=== PATIENT | female | born 1950 | race Caucasian/White ===

== ENCOUNTER → 2017-05-20 | Outpatient (CLI) | payer OTHER ==
[~2017-05-20] MED LIST: ARM1 PO; ASCA500 PO; B12 PO; CLTP PO; CYAN500T PO; GARLIC SUPPLEMENT PO; HYDC25 PO; MULT-506 PO; MULTIVITAMIN DAILY PO; PYRI100T4 PO; Vitamin D3 PO
--- NOTE | 2017-05-21 13:57 | MAMMOGRAPHY REPORT ---
BILATERAL DIGITAL SCREENING MAMMOGRAM TOMOSYNTHESIS WITH CAD: 05/20/2017 CLINICAL HISTORY: Asymptomatic. Personal history of breast cancer. TECHNIQUE: Breast tomosynthesis in addition to standard 2D mammography was performed. Current study was also evaluated with a Computer Aided Detection (CAD) system. COMPARISON: Comparison is made to exams dated: 05/18/2016 mammogram, 05/13/2015 mammogram, 05/09/2014 sarah mogram, 05/08/2013 mammogram, 05/05/2012 mammogram, and 05/04/2011 mammogram - [facility]. BREAST COMPOSITION: The tissue of both breasts is heterogeneously dense, which may obscure small mas ses. FINDINGS: No suspicious masses, calcifications, or areas of architectural distortion are noted in ei ther breast. There has been no significant interval change compared to prior exams. There are stable post surgical changes in the left superior breast from prior lumpectomy. Scattered bilateral benign -appearing calcifications are stable. IMPRESSION: ACR BI-RADS CATEGORY 2: BENIGN There is no mammographic evidence of malignancy. A 1 year screening mammogram is recommended. The pa tient will receive written notification of the results. Approximately 10% of breast cancers are not detected with mammography. A negative mammographic report should not delay biopsy if a clinically suggestive mass is present. Rachelle Berry M.D. /:05/20/2017 14:53:21 [employer] Forms: Claudia KIRKLAND(R)(M), [facility] letter sent: Normal 1/2 BI-RADS Code: ACR BI-RADS Category 2: Benign
== END | disposition home or self-care (01) ==
LOC: C.MAMM 13:20
PROVIDERS: ATTEND Internal Medicine Hematology
DX: Z12.31 Encounter for screening mammogram for malignant neoplasm of breast (principal)

== ENCOUNTER → 2018-05-23 | Outpatient (CLI) | payer OTHER ==
--- NOTE | 2018-05-24 14:56 | MAMMOGRAPHY REPORT ---
BILATERAL DIGITAL SCREENING MAMMOGRAM TOMOSYNTHESIS WITH CAD: 05/23/2018 CLINICAL HISTORY: Asymptomatic. Personal history of breast cancer. TECHNIQUE: The study was acquired using full field digital technology and interpreted from soft copy. Breast tomosynthesis in addition to standard 2D mammography was performed. Current study was also ev aluated with a Computer Aided Detection (CAD) system. COMPARISON: Comparison is made to exams dated: 05/20/2017 mammogram, 05/18/2016 mammogram, 05/13/2015 sarah mogram, 05/09/2014 mammogram, 05/08/2013 mammogram, and 05/04/2011 mammogram - [facility]. BREAST COMPOSITION: The tissue of both breasts is heterogeneously dense, which may obscure small mass es. FINDINGS: A linear scar marker overlies the upper outer posterior left breast, and there is expected architectural distortion in the upper outer posterior left breast, denoting the site of prior lumpect najma. There are scattered benign rounded rim calcifications as well as mild vascular calcification in the breasts. No suspicious mass, architectural distortion or cluster of microcalcifications is seen. IMPRESSION: ACR BI-RADS CATEGORY 1: NEGATIVE There is no mammographic evidence of malignancy. A 1 year screening mammogram is recommended.( 019) The patient will receive written notification of the results. Some breast cancers are not detected with mammography. A negative mammographic report should not alejo y biopsy if a clinically suggestive mass is present. Vera Acharya M.D. ay/:05/23/2018 15:13:29 Development Director: RT Bonnie(Paramjit)(M), [facility] letter sent: Normal 1/2 BI-RADS Code: ACR BI-RADS Category 1: Negative
== END | disposition home or self-care (01) ==
LOC: C.MAMM 12:47
PROVIDERS: ATTEND Family Medicine
DX: Z12.31 Encounter for screening mammogram for malignant neoplasm of breast (principal); Z85.3 Personal history of malignant neoplasm of breast

== ENCOUNTER 2022-04-20 08:32 | Inpatient (IN) ==
--- NOTE | 2022-04-20 09:04 | Emergency Department Note ---
History of Present Illness General Chief complaint: Flank Pain Stated complaint: FLANK PAIN,TROUBLE STANDING,CONFUSION,CANT EAT Time Seen by Provider: 04/20/22 08:51 Source: patient and family (Son at bedside) History of Present Illness Provider complaint: Abdominal pain flank pain confused Onset (ago): month(s) 1 Maximum Pain Intensity: 8 72-year-old female with history of breast cancer presents emergency department with son for abdominal pain flank pain and confusion. Patient and son report that she has been having flank pain and abdominal pain for the last month on and off. Son reports that about a month ago she was admitted to the hospital for constipation. He states he had to do a "cleanout". Patient reports she is still having bowel movements had bowel movement yesterday. Patient reports she thinks her urine may be infected. No fevers. No falls. Son reports that the patient has been more "foggy" and slow to respond. No nausea vomiting or diarrhea. No hematuria or dysuria. Home Medications Medication Instructions Recorded Confirmed Type anastrozole 1 mg tablet 1 mg PO DAILY 03/18/22 03/18/22 History atorvastatin 10 mg tablet 10 mg PO HS 03/18/22 03/18/22 History calcium carbonate 600 mg-vitamin 1 tab PO DAILY 03/18/22 03/18/22 History D3 10 mcg (400 unit) tablet (Calcium 600 + D(3)) lisinopril 20 0.5 tab PO DAILY 03/18/22 03/18/22 History mg-hydrochlorothiazide 12.5 mg tablet Allergies Allergy/AdvReac Type Severity Reaction Status Date / Time No Known Allergies Allergy Unknown Verified 03/18/22 15:24 Past Med/Surg History Medical History Breast cancer High cholesterol Hypertension No pertinent family history Surgical History No pertinent past surgical history Social History Smoking Status: Never smoker Feels Safe at Home: Yes Review of Systems A total of 10 systems reviewed and were otherwise negative Physical Exam Vital Signs Vital Signs - 24 hr 04/20/22 08:41 04/20/22 09:23 04/20/22 10:30 Temperature 36.3 C L 36.8 C Temperature Source Skin Oral Pulse Rate 97 H 97 H Pulse Rate [Radial] 98 H 88 Pulse Rhythm Regular Pulse Rhythm [Radial] Regular Pulse Strength [Radial] Normal Respiratory Rate 20 17 20 Respiratory Effort / Characteristics Non-Labored Spontaneous Non-Labored Non-Labored Respiratory Depth Normal Normal Normal Respiratory Pattern Regular Regular Blood Pressure 141/74 H Blood Pressure [Right Arm] 153/87 H 143/78 H Blood Pressure Mean 96 Blood Pressure Mean [Right Arm] 109 99 Blood Pressure Position [Right Arm] Sitting Pulse Oximetry 97 96 98 Oxygen Delivery Method Room Air Room Air Room Air Sepsis Recent Fever Within 48 Hours No Sepsis New/Unexplained Change in Mental Status N/A Sepsis Action Taken by Nursing No Action Required 04/20/22 11:56 Temperature Temperature Source Pulse Rate Pulse Rate [Radial] 93 H Pulse Rhythm Pulse Rhythm [Radial] Regular Pulse Strength [Radial] Normal Respiratory Rate 16 Respiratory Effort / Characteristics Non-Labored Respiratory Depth Normal Respiratory Pattern Regular Blood Pressure Blood Pressure [Right Arm] Blood Pressure Mean Blood Pressure Mean [Right Arm] Blood Pressure Position [Right Arm] Pulse Oximetry 98 Oxygen Delivery Method Room Air Sepsis Recent Fever Within 48 Hours Sepsis New/Unexplained Change in Mental Status Sepsis Action Taken by Nursing Physical Exam GENERAL: She is oriented to person, place, and time. She appears well-developed and well-nourished. She does not appear distressed. HENT: Exam performed. -Head: Normocephalic and atraumatic. -Right Ear: External ear normal. No mastoid tenderness. -Left Ear: External ear normal. No mastoid tenderness. -Mouth/Throat: The oropharynx is clear and moist. No trismus in the jaw. No dental abscesses or uvula swelling. No oropharyngeal exudate or tonsillar abscesses. EYES: Conjunctivae and EOM are normal. Pupils are equal, round, and reactive to light. Right eye exhibits no discharge. Left eye exhibits no discharge. No scleral icterus. NECK: Normal range of motion. Neck supple. No JVD present. No spinous process tenderness present. No carotid bruit present. No rigidity. No tracheal deviation and normal range of motion present. No Brudzinski's sign and no Kernig's sign noted. CV: Normal rate, regular rhythm, normal heart sounds and intact distal pulses. There is no peripheral edema. Palpable radial pulses bue. PULM/CHEST: Effort normal and breath sounds normal. No respiratory distress. No stridor. She has no wheezes. She has no rales. -Chest Wall: She exhibits no tenderness. ABD: The abdomen is soft. Bowel sounds are normal. She has no distension. No mass is present. There is no tenderness. There is no rebound, no guarding, no Fowler's sign and no tenderness at McBurney's point. Rovsig negative MUSC/SKEL: Normal range of motion. There is no peripheral edema, tenderness or deformity. LYMPH: No cervical adenopathy. NEURO: She is alert and oriented to person, place, and time. She has normal strength. No cranial nerve deficit or sensory deficit. Coordination and gait normal. GCS eye subscore is 4. GCS verbal subscore is 5. GCS motor subscore is 6. Cerebellar tests wnl. SKIN: Skin is warm and dry. She is not diaphoretic. PSYCH: She has a normal mood and affect. Behavior is normal. Judgment and thought content normal. Course Course 0851: The patient was evaluated in room A2. A complete history and physical exam was performed Cardiac monitoring: An order was placed for continuous cardiac monitoring. The monitor shows a rate of 90 with sinus rhythm 1155: Vital signs stable. Labs show a creatinine of 3.95 and calcium of 15.8. CT of the head within normal limits CT of the abdomen pelvis shows compression deformities of T11 and L1 with a possible nondisplaced fracture of T10. There are also multiple lytic foci representing either multiple myeloma metastasis of breast cancer or severe osteopenia. On exam the patient has no palpation over the T or L-spine. It is thought that the patient might have metastasis of her breast cancer which is causing these fractures and also the hypercalcemia. Discussed the case with Jennyfer York hospitalist who stated to admit to Dr. Fischer Administered Medications Discontinued Medications Sodium Chloride (Nss 1000ml) 1,000 mls @ 999 mls/hr IV .Q1H1M ONE Stop: 04/20/22 12:30 Last Admin: 04/20/22 11:54 Dose: 999 mls/hr Documented by: [id number] Medical Decision Making Laboratory Data Result diagrams: 04/20/22 10:03 04/20/22 10:45 Lab Results 04/20/22 04/20/22 04/20/22 Range/Units 09:10 09:18 10:03 WBC 9.00 (4.8-10.8) K/ul RBC 2.77 L (3.93-5.22) M/uL Hgb 8.8 L (12.0-16.0) g/dl Hct 25.5 L (34.1-44.9) % MCV 92.1 (80.0-100.0) fL MCH 31.8 (25.0-34.0) pg MCHC 34.5 (32.0-36.0) g/dL RDW Std Deviation 42.4 (36.4-46.3) fL RDW Coeff of Brandon 12.6 (11.5-14.5) % Plt Count 199 (130-400) K/uL MPV 10.4 (9.4-12.3) fL Immature Gran % (Auto) 1.1 % Neut % (Auto) 71.4 % Lymph % (Auto) 14.3 % [place] % (Auto) 12.0 % Eos % (Auto) 0.9 % Baso % (Auto) 0.3 % Neut # (Auto) 6.42 (1.4-6.5) K/uL Lymph # (Auto) 1.29 (1.2-3.4) K/uL [place] # (Auto) 1.08 H (0.24-0.82) K/uL Eos # (Auto) 0.08 (0-0.50) K/uL Baso # (Auto) 0.03 (0-0.2) K/uL Immature Gran # (Auto) 0.10 H (0.00-0.02) K/uL Sodium (136-145) mmol/L Potassium (3.5-5.1) mmol/L Chloride (98-107) mmol/L Carbon Dioxide (21-32) mmol/L Anion Gap (3-11) BUN (6-23) mg/dl Creatinine (0.6-1.2) mg/dl Est Cr Clr Drug Dosing ml/min Est GFR ( Amer) ml/min Est GFR (Non-Af Amer) ml/min BUN/Creatinine Ratio (10-20) Glucose (70-99(Fasting)) mg/dl POC Glucose 101 H (70-99) mg/dl Calcium (8.5-10.1) mg/dl Urine Color Yellow Urine Appearance Clear (Clear) Urine pH 6.0 (4.5-7.5) Ur Specific [place] 1.014 (1.000-1.030) Urine Protein 2+ H (Negative) Urine Glucose (UA) Negative (Negative) Urine Ketones Negative (Negative) Urine Blood 3+ H (Negative) Urine Nitrite Negative (Negative) Urine Bilirubin Negative (Negative) Urine Urobilinogen Negative (Negative) Ur Leukocyte Esterase Trace H (Negative) Urine WBC (Auto) 10-30 H (0-5) /hpf Urine RBC (Auto) 10-30 H (0-4) /hpf U Hyaline Cast (Auto) 1-5 (0-5) /lpf U Epithel Cells (Auto) >30 H (0-5) /lpf Urine Bacteria (Auto) Negative (Negative) Ur Renal Epithelial Cell Not Reportable SARS-CoV-2, RNA, NAAT (NEGATIVE) 04/20/22 04/20/22 Range/Units 10:45 11:47 WBC (4.8-10.8) K/ul RBC (3.93-5.22) M/uL Hgb (12.0-16.0) g/dl Hct (34.1-44.9) % MCV (80.0-100.0) fL MCH (25.0-34.0) pg MCHC (32.0-36.0) g/dL RDW Std Deviation (36.4-46.3) fL RDW Coeff of [place] (11.5-14.5) % Plt Count (130-400) K/uL MPV (9.4-12.3) fL Immature Gran % (Auto) % Neut % (Auto) % Lymph % (Auto) % [place] % (Auto) % Eos % (Auto) % Baso % (Auto) % Neut # (Auto) (1.4-6.5) K/uL Lymph # (Auto) (1.2-3.4) K/uL [place] # (Auto) (0.24-0.82) K/uL Eos # (Auto) (0-0.50) K/uL Baso # (Auto) (0-0.2) K/uL Immature Gran # (Auto) (0.00-0.02) K/uL Sodium 135 L (136-145) mmol/L Potassium 3.0 L (3.5-5.1) mmol/L Chloride 93 L (98-107) mmol/L Carbon Dioxide 31 (21-32) mmol/L Anion Gap 11 (3-11) BUN 53 H (6-23) mg/dl Creatinine 3.95 H (0.6-1.2) mg/dl Est Cr Clr Drug Dosing 10.7 ml/min Est GFR ( Amer) 12.3 ml/min Est GFR (Non-Af Amer) 10.6 ml/min BUN/Creatinine Ratio 13.4 (10-20) Glucose 93 (70-99(Fasting)) mg/dl POC Glucose (70-99) mg/dl Calcium 15.8 H* (8.5-10.1) mg/dl Urine Color Urine Appearance (Clear) Urine pH (4.5-7.5) Ur Specific [place] (1.000-1.030) Urine Protein (Negative) Urine Glucose (UA) (Negative) Urine Ketones (Negative) Urine Blood (Negative) Urine Nitrite (Negative) Urine Bilirubin (Negative) Urine Urobilinogen (Negative) Ur Leukocyte Esterase (Negative) Urine WBC (Auto) (0-5) /hpf Urine RBC (Auto) (0-4) /hpf U Hyaline Cast (Auto) (0-5) /lpf U Epithel Cells (Auto) (0-5) /lpf Urine Bacteria (Auto) (Negative) Ur Renal Epithelial Cell SARS-CoV-2, RNA, NAAT NEGATIVE (NEGATIVE) Imaging Data Radiologist's Impression: Abdomen/Pelvis CT 04/20/22 09:00 CT abd pelvis wo con CLINICAL HISTORY: abd pain flank pain confusion TECHNIQUE: Helical axial images of the abdomen and pelvis were obtained. Automated dose lowering techniques and/or adjustment according to patient size were utilized for this exam. This exam was performed without intravenous contrast. COMPARISON: None available at the time of this dictation. FINDINGS: Lower chest: Bibasilar atelectasis versus scarring is seen. Atherosclerotic disease is seen in the coronary arteries. There is a small amount of pericardial fluid. Liver: Unremarkable. No focal lesions are seen. Gallbladder and biliary tree: Calcified gallstone is seen in the antidependent portion of the gallbladder. No intra- or extrahepatic biliary ductal dilation. Pancreas: Unremarkable, no focal lesions. Spleen: Unremarkable. Adrenals: Mild adrenal thickening is noted. Kidneys and ureters: Multiple renal cysts are seen on the right. No evidence of hydronephrosis. Bladder: Bladder is under distended with circumferential thickening noted. Reproductive organs: Unremarkable. Bowel: A hiatal hernia is seen. Lymph nodes Retroperitoneal: Subcentimeter lymph nodes are noted. Mesenteric: Unremarkable. Pelvic: Unremarkable. Peritoneum: Normal. Vessels: Atherosclerotic calcifications are seen. Abdominal wall: Unremarkable. Bones: There are compression deformities of T11 and L1 of unknown chronicity. Possible minimally displaced fracture of the superior endplate of T10 is seen. The bones are severely osteopenic with innumerable lytic foci. Degenerative changes in the visualized spine. IMPRESSION: 1. Osteopenia with innumerable lytic foci which may represent multiple myeloma, metastases of breast cancer, or severe osteopenia. There are compression deformities of T11 and L1, and possible nondisplaced fracture of T10, of unknown chronicity, correlation with point tenderness is recommended. Otherwise, no acute abnormality is seen, in particular no evidence of hydronephrosis or nephrolithiasis. 2. Bladder wall thickening, correlation with urinalysis for UTI is recommended. ACT 112: Negative or not required by law. Electronically signed by: Edy Ramirez M.D. 04/20/2022 10:[address] 04/20/22 09:[address] DOSE: 638.56 mGycm HISTORY: Confusion. TECHNIQUE: Multiaxial CT images of the head were performed without the use of intravenous contrast. Automated exposure control was utilized for this study. A dose lowering technique was utilized adhering to the principles of ALARA. Comparison: None. Findings: The paranasal sinuses and mastoid air cells are clear. The calvarium and skull base are intact. There is no mass, hematoma, midline shift, acute infarct. White matter hypodensity is nonspecific but suggestive of microvascular ischemic change. The ventricles and sulci demonstrate mild age-related involutional changes. A few scalp nodules which favor sebaceous cysts. Impression: No acute intracranial abnormality. Atrophy and microvascular ischemic changes. ACT 112: Negative or not required by law. Electronically signed by: Osei Cope M.D. 04/20/2022 9:48 AM MDM Narrative Vital signs stable. Labs show a creatinine of 3.95 and calcium of 15.8. CT of the head within normal limits CT of the abdomen pelvis shows compression d eformities of T11 and L1 with a possible nondisplaced fracture of T10. There are also multiple lytic foci representing either multiple myeloma metastasis of breast cancer or severe osteopenia. On exam the patient has no palpation over the T or L-spine. It is thought that the patient might have metastasis of her breast cancer which is causing these fractures and also the hypercalcemia. Discussed the case with Jennyfer York hospitalist who stated to admit to Dr. Fischer Impression & Plan Hypercalcemia, FAUSTO (acute kidney injury) Discharge Plan Visit Data Chief Complaint: Flank Pain Stated Complaint: FLANK PAIN,TROUBLE STANDING,CONFUSION,CANT EAT ED Provider: Wellington Danielson Discharge Problem: Hypercalcemia, FAUSTO (acute kidney injury) Patient Disposition: Admitted As Inpatient Forms Stand Alone Forms: [facility] Prescriptions Prescriptions: No Action anastrozole 1 mg tablet 1 mg PO DAILY RF: 0 atorvastatin 10 mg tablet 10 mg PO HS RF: 0 lisinopril-hydrochlorothiazide 20-12.5 mg tablet 0.5 tab PO DAILY RF: 0 calcium carbonate-vitamin D3 [Calcium 600 + D(3)] 600 mg-10 mcg (400 unit) Tablet 1 tab PO DAILY RF: 0 Referrals Referrals: Amelia Tucker, [Primary Care Provider] -
[2022-04-20 09:31] LABS: Appearance Urine Clear (Clear); Bacteria Urine Automated Negative (Negative); Bilirubin Urine Negative (Negative); Blood Urine 3+ (Negative); Color Urine Yellow; Epithelial Cell Urine Auto >30 /lpf (0-5); Glucose Urine UA Negative (Negative); Ketones Urine Negative (Negative); Leukocyte Esterase Urine Trace (Negative); Nitrite Urine Negative (Negative); Protein Urine 2+ (Negative); Specific Gravity Urine 1.014 (1.000-1.030); Urobilinogen Urine Negative (Negative)
--- NOTE | 2022-04-20 09:50 | CT Scan Report ---
HEAD CT NONCONTRAST CT DOSE: 638.56 mGycm HISTORY: Confusion. TECHNIQUE: Multiaxial CT images of the head were performed without the use of intravenous contrast. A utomated exposure control was utilized for this study. A dose lowering technique was utilized adheri ng to the principles of ALARA. Comparison: None. Findings: The paranasal sinuses and mastoid air cells are clear. The calvarium and skull base are int act. There is no mass, hematoma, midline shift, acute infarct. White matter hypodensity is nonspecifi c but suggestive of microvascular ischemic change. The ventricles and sulci demonstrate mild age-rela sean involutional changes. A few scalp nodules which favor sebaceous cysts. Impression: No acute intracranial abnormality. Atrophy and microvascular ischemic changes. ACT 112: Negative or not required by law. Electronically signed by: Osei Cope M.D. 04/20/2022 9:48 AM
--- NOTE | 2022-04-20 10:22 | CT Scan Report ---
CT abd pelvis wo con CLINICAL HISTORY: abd pain flank pain confusion TECHNIQUE: Helical axial images of the abdomen and pelvis were obtained. Automated dose lowering tech niques and/or adjustment according to patient size were utilized for this exam. This exam was perfor med without intravenous contrast. COMPARISON: None available at the time of this dictation. FINDINGS: Lower chest: Bibasilar atelectasis versus scarring is seen. Atherosclerotic disease is seen in the c oronary arteries. There is a small amount of pericardial fluid. Liver: Unremarkable. No focal lesions are seen. Gallbladder and biliary tree: Calcified gallstone is seen in the antidependent portion of the gallbla dder. No intra- or extrahepatic biliary ductal dilation. Pancreas: Unremarkable, no focal lesions. Spleen: Unremarkable. Adrenals: Mild adrenal thickening is noted. Kidneys and ureters: Multiple renal cysts are seen on the right. No evidence of hydronephrosis. Bladder: Bladder is under distended with circumferential thickening noted. Reproductive organs: Unremarkable. Bowel: A hiatal hernia is seen. Lymph nodes Retroperitoneal: Subcentimeter lymph nodes are noted. Mesenteric: Unremarkable. Pelvic: Unremarkable. Peritoneum: Normal. Vessels: Atherosclerotic calcifications are seen. Abdominal wall: Unremarkable. Bones: There are compression deformities of T11 and L1 of unknown chronicity. Possible minimally disp laced fracture of the superior endplate of T10 is seen. The bones are severely osteopenic with innume rable lytic foci. Degenerative changes in the visualized spine. IMPRESSION: 1. Osteopenia with innumerable lytic foci which may represent multiple myeloma, metastases of breast cancer, or severe osteopenia. There are compression deformities of T11 and L1, and possible nondispl aced fracture of T10, of unknown chronicity, correlation with point tenderness is recommended. Otherw ise, no acute abnormality is seen, in particular no evidence of hydronephrosis or nephrolithiasis. 2. Bladder wall thickening, correlation with urinalysis for UTI is recommended. ACT 112: Negative or not required by law. Electronically signed by: Edy Ramirez M.D. 04/20/2022 10:21 AM
[2022-04-20 11:05] LABS: Basophils # (auto) 0.03 K/uL (0-0.2); Basophils % (auto) 0.3 %; Eosinophils # (auto) 0.08 K/uL (0-0.50); Eosinophils % (auto) 0.9 %; Hematocrit (blood only) 25.5 % (34.1-44.9); Hemoglobin 8.8 g/dl (12.0-16.0); Immature Granulocytes % (auto) 1.1 %; Lymphocytes # (auto) 1.29 K/uL (1.2-3.4); Lymphocytes % (auto) 14.3 %; Mean Corpuscular Hemoglobin 31.8 pg (25.0-34.0); Mean Corpuscular Hgb Conc 34.5 g/dL (32.0-36.0); Mean Corpuscular Volume 92.1 fL (80.0-100.0); Mean Platelet Volume 10.4 fL (9.4-12.3); Monocytes # (auto) 1.08 K/uL (0.24-0.82); Neutrophils # (auto) 6.42 K/uL (1.4-6.5); Neutrophils % (auto) 71.4 %; Platelet Count 199 K/uL (130-400); RDW Coefficient of Variation 12.6 % (11.5-14.5); RDW Standard Deviation 42.4 fL (36.4-46.3); Red Blood Count 2.77 M/uL (3.93-5.22)
[2022-04-20 11:24] LABS: BUN Creatinine Ratio 13.4 (10-20); Calcium 15.8 mg/dl (8.5-10.1); Creatinine Clr Calc Pharmacy 10.7 ml/min; Est GFR (African American) 12.3 ml/min; Est GFR (Non-African American) 10.6 ml/min
[2022-04-20] MEDS ORDERED: SODIUM CHLORIDE 0.9% 1000ML 1,000 ML IV ONE (11:30)
--- NOTE | 2022-04-20 12:46 | History & Physical Report ---
Date of Service April 20, 2022 Assessment & Plan (1) Hypercalcemia: Plan: Clinical picture seems most consistent with underlying malignancy in view of imaging and prior history of breast cancer. - Admit to PCU - Continue IV fluid hydration - Consult nephrology for additional treatment recommends, especially in the setting of FAUSTO - Repeat labs this evening and in AM - HOLD calcium supplement - Outpatient follow-up with oncology shortly after D/C - Check SPEP/UPEP - Fall precautions due to generalized weakness. (2) FAUSTO (acute kidney injury): Plan: Baseline creatinine appears to be around 0.6. Today it is 3.95. - Nephro consult pending - Holding lisinopril/HCTZ - will need to monitor BP closely. If becomes markedly elevated off home meds, may need to consider a PRN med. (3) Anemia: Plan: Hgb in December was ~13, today 8.8. Pt denies overt blood loss that she can recall. - Iron studies, B12, folate, retic count - Heme check stools - most recent screening colonoscopy was in 2017 and was negative (4) Hypokalemia: Plan: - Replete and recheck this evening - Add Magnesium level to labs (5) Hypertension: (6) History of breast cancer: (7) High cholesterol: Plan: Continue other home medications as appropriate Pt seen and reviewed with collaborating physician, Dr. Fischer. Plan of care discussed and as outlined above. Code Status: DNR/DNI - pt does not have a living will/POA but states that her son and daughter would make decisions if she couldn't DVT Prophylaxis: SubQ heparin Edmundo Flores PA-C History of Present Illness Chief Complaint: Back pain, weakness Primary Care Provider: Amelia Tucker DO This is a 72 y/o female with a PMH of HTN, dyslipidemia, Breast Cancer s/p mastectomy and chemotherapy, on chronic Arimidex, and prediabetes (A1c in December was 6.1) who presents to the ED today with progressive weakness, increasing back pain, and issues with memory. History is obtained from both patient and her son who is at the bedside since the patient is having issues with memory affecting her ability to give the history. Pt started with a loss of appetite several months ago which has gradually worsened. Over the past few days, she reports barely eating anything and liquid intake has also been limited. She denies significant nausea or vomiting but has had some non-specific abdominal discomfort. She reports unintentional weight loss over the last several months but cannot quantify it - review of her outpatient records shows approximately 15 lb weight loss since last summer. She has also had mid to lower back pain over the last several weeks - seen in the ED for same complaint last month. Found to have compression fractures on imaging. Has been using Lidocaine patches for pain which have only been partially helpful. Pain has also been worse over the last few days. Her family has also noticed an increase in generalized weakness and loss of balance although both patient and her family deny any recent falls. She has had trouble with her memory, even with basic concepts and events, and describes feeling like she is "in a fog" today. This has also worsened over the last couple of days. Her son recently purchased a cane for the patient because of these issues but she did not previously use anything to assist with ambulation. She lives alone but has family just up the road to help when needed. Last oncology appt in December with [facility] - was doing well. Last mammo was negative in May 2021. Last DEXA in December 2020 was low to moderate fracture risk, no specific pharm therapy recommended. Allergies Allergy/AdvReac Type Severity Reaction Status Date / Time No Known Allergies Allergy Unknown Verified 03/18/22 15:24 Home Medications Medication Instructions Recorded Confirmed Type anastrozole 1 mg tablet 1 mg PO DAILY 03/18/22 04/20/22 History atorvastatin 10 mg tablet 10 mg PO HS 03/18/22 04/20/22 History calcium carbonate 600 mg-vitamin 1 tab PO BID 03/18/22 04/20/22 History D3 10 mcg (400 unit) tablet (Calcium 600 + D(3)) lisinopril 20 0.5 tab PO DAILY 03/18/22 04/20/22 History mg-hydrochlorothiazide 12.5 mg tablet Past Med/Surg History Medical History Breast cancer High cholesterol Hypertension Surgical History History of partial mastectomy of left breast Family History Brother Cancer Pancreatic Sister Cancer Lymphoma Family/Other Cancer Niece with breast cancer at age 40 (mother had lymphoma) Uncle Cancer Brain Mother Diabetes Father Heart disease Social History Smoking Status: Never smoker Hx Alcohol Use: No Hx Substance Use: No Preferred Language: Qatari Communication Ability: Effective Site Controller Required: No Beliefs That Will Affect Care: None Current Living Situation: Alone Other Information That Helps Us Care for You: No Feels Safe at Home: Yes Safety Concerns: Feels Safe At This Time Assistive Devices: Cane and Glasses Review of Systems Review of Systems: All systems reviewed & are unremarkable except as noted in HPI & below Constitutional: + fatigue, + weakness, + anorexia and + weight loss; no fever and no chills Eyes: no diplopia and no worsening vision Ear, Nose, Mouth, Throat: no nasal congestion, no nasal discharge, no sore throat and no dysphagia Respiratory: no cough, no dyspnea and no wheezing Cardiovascular: no chest pain, no palpitations, no syncope and no edema Gastrointestinal: + abdominal pain; no nausea, no vomiting, no constipation, no diarrhea/loose stools and no blood in stools Genitourinary: no dysuria, no urinary frequency and no hematuria Musculoskeletal: + back pain and + muscle weakness; no neck pain Integumentary: no yellowing of the skin Neurologic: as per Subjective / HPI, + unsteadiness, + generalized weakness and + memory loss; no falls, no dizziness and no headache(s) Psychiatric: no depression and no anxiety Physical Exam Constitutional: + thin and + frail appearing; no acute distress Eyes: PERRL, conjunctivae normal, anicteric sclerae EOM intact bilaterally ENMT: external ear and nose normal, oropharynx normal Neck: trachea midline Respiratory: no respiratory distress and no labored breathing Auscultation: lungs clear to auscultation bilaterally; no rales, no rhonchi and no wheezes Cardiovascular: Rate/Rhythm: regular rate and regular rhythm Vessels: radial pulses present Extremities: no pedal edema Gastrointestinal (Abdomen): Inspection/Auscultation: normal bowel sounds; abdomen not distended Percussion/Palpation: abdomen soft; abdomen nontender Musculoskeletal: Head/Neck/Chest: normocephalic, head atraumatic and neck supple Spine: no thoracic spinal tenderness and no lumbar spinal tenderness Skin: no jaundice Neurologic: moves all extremities; no focal motor deficits Speech / Cognition: normal speech Cranial Nerves: PERRL, normal accommodation, EOM intact bilaterally, tongue midline and able to rotate head bilaterally Psychiatric: A+Ox3, euthymic affect some difficulty with recent memory Results & Data Results & Data ([facility]) Vital Signs (Past 12 Hours) Vital Signs Temp Pulse Pulse Resp BP BP Pulse Ox 04/20/22 11:56 93 H 16 98 04/20/22 10:30 88 20 143/78 H 98 04/20/22 09:23 36.8 C 97 H 98 H 17 153/87 H 96 04/20/22 08:41 36.3 C L 97 H 20 141/74 H 97 Laboratory Results Laboratory Results - last 24 hr 04/20/22 04/20/22 04/20/22 09:10 09:18 10:03 WBC 9.00 RBC 2.77 L Hgb 8.8 L Hct 25.5 L MCV 92.1 MCH 31.8 MCHC 34.5 RDW Std Deviation 42.4 RDW Coeff of [place] 12.6 Plt Count 199 MPV 10.4 Immature Gran % (Auto) 1.1 Neut % (Auto) 71.4 Lymph % (Auto) 14.3 [place] % (Auto) 12.0 Eos % (Auto) 0.9 Baso % (Auto) 0.3 Neut # (Auto) 6.42 Lymph # (Auto) 1.29 [place] # (Auto) 1.08 H Eos # (Auto) 0.08 Baso # (Auto) 0.03 Immature Gran # (Auto) 0.10 H Sodium Potassium Chloride Carbon Dioxide Anion Gap BUN Creatinine Est Cr Clr Drug Dosing Est GFR ( Amer) Est GFR (Non-Af Amer) BUN/Creatinine Ratio Glucose POC Glucose 101 H Calcium Urine Color Yellow Urine Appearance Clear Urine pH 6.0 Ur Specific [place] 1.014 Urine Protein 2+ H Urine Glucose (UA) Negative Urine Ketones Negative Urine Blood 3+ H Urine Nitrite Negative Urine Bilirubin Negative Urine Urobilinogen Negative Ur Leukocyte Esterase Trace H Urine WBC (Auto) 10-30 H Urine RBC (Auto) 10-30 H U Hyaline Cast (Auto) 1-5 U Epithel Cells (Auto) >30 H Urine Bacteria (Auto) Negative Ur Renal Epithelial Cell Not Reportable SARS-CoV-2, RNA, NAAT 07/11/22 07/11/22 10:45 11:47 WBC RBC Hgb Hct MCV MCH MCHC RDW Std Deviation RDW Coeff of [place] Plt Count MPV Immature Gran % (Auto) Neut % (Auto) Lymph % (Auto) [place] % (Auto) Eos % (Auto) Baso % (Auto) Neut # (Auto) Lymph # (Auto) [place] # (Auto) Eos # (Auto) Baso # (Auto) Immature Gran # (Auto) Sodium 135 L Potassium 3.0 L Chloride 93 L Carbon Dioxide 31 Anion Gap 11 BUN 53 H Creatinine 3.95 H Est Cr Clr Drug Dosing 10.7 Est GFR ( Amer) 12.3 Est GFR (Non-Af Amer) 10.6 BUN/Creatinine Ratio 13.4 Glucose 93 POC Glucose Calcium 15.8 H* Urine Color Urine Appearance Urine pH Ur Specific [place] Urine Protein Urine Glucose (UA) Urine Ketones Urine Blood Urine Nitrite Urine Bilirubin Urine Urobilinogen Ur Leukocyte Esterase Urine WBC (Auto) Urine RBC (Auto) U Hyaline Cast (Auto) U Epithel Cells (Auto) Urine Bacteria (Auto) Ur Renal Epithelial Cell SARS-CoV-2, RNA, NAAT NEGATIVE Diagnostic Findings CT Abd/Pel 04/20/22 - IMPRESSION: 1. Osteopenia with innumerable lytic foci which may represent multiple myeloma, metastases of breast cancer, or severe osteopenia. There are compression deformities of T11 and L1, and possible nondisplaced fracture of T10, of unknown chronicity, correlation with point tenderness is recommended. Otherwise, no acute abnormality is seen, in particular no evidence of hydronephrosis or nephrolithiasis. 2. Bladder wall thickening, correlation with urinalysis for UTI is recommended. CT Head 04/20/22 - Impression: No acute intracranial abnormality. Atrophy and microvascular ischemic changes. Medications Administered Discontinued Medications Sodium Chloride (Nss 1000ml) 1,000 mls @ 999 mls/hr IV .Q1H1M ONE Stop: 04/20/22 12:30 Last Admin: 04/20/22 11:54 Dose: 999 mls/hr Documented by: [id number] Code Status & VTE Plan VTE Prophylaxis Plan VTE Prophylaxis will be ordered: Yes Supervising Physician Co-Signing Physician Notes Pt was seen and examined. Agreed with Jeff FISH exam, assessment and plan. 72 y/o female with a PMH of HTN, dyslipidemia, Breast Cancer s/p mastectomy and chemotherapy, on chronic Arimidex, and prediabetes (A1c in December was 6.1) who presents to the ED today with progressive weakness, increasing back pain, and issues with memory. Son at bedside who helped with the history. As per son, pt has been very weak lately. Son said that pt has been declined slowly. Pt has very poor appetite. Son said that she starting to use a cane lately due to her weakness. She has been having back pain that seems to control with the Lidocaine patch. Pt lost about 15 lbs since last summer. Denies any nausea, diarrhea, vomiting, chest pain, palpitation. Lab in the ER showed calcium 15.8, Creatinine 3.95 and Potassium 3 today. Hypercalcemia might be related to malignancy. Will hold on calcium and vitamin d supplement. Van continue IV hydration. Will check PTH, Vit D level, SPEP/UPEP. Will consult nephrology. Avoid nephrotoxic genets. Continue monitor BMP. MD Amado
[2022-04-20] MEDS ORDERED: POTASSIUM CHLORIDE CRTAB 20 MEQ TABCR PO STA (12:56)
[2022-04-20] MEDS ORDERED: ACETAMINOPHEN 325 MG TAB PO PRN (15:10)
[2022-04-20] MEDS: SODIUM CHLORIDE 0.9% 1000ML 1,000 ML IV SCH ×2 (16:15→19:35)
[2022-04-20 16:18] LABS: Reticulocyte % 0.9 % (0.5-2.0); Reticulocytes # 0.02 10^6/uL (0.02-0.10)
[2022-04-20 17:00] LABS: Ferritin 571.2 ng/ml (8-388)
[2022-04-20 17:05] LABS: Folate (Folic Acid) 9.45 ng/ml (>5.38)
[2022-04-20 17:06] LABS: Vitamin B12 > 1500 pg/ml (180-914)
[2022-04-20] MEDS: ATORVASTATIN 10 MG TAB PO SCH (19:52)
[2022-04-20] MEDS: HEPARIN SOD 5,000 UNIT/0.5 ML VIAL SQ SCH (19:52)
[2022-04-20 22:07] LABS: BUN Creatinine Ratio 13.4 (10-20); Bilirubin Direct 0.2 mg/dl (0-0.2); Bilirubin,Total 0.9 mg/dl (0.2-1.0); Calcium 14.6 mg/dl (8.5-10.1); Creatinine Clr Calc Pharmacy 10.3 ml/min; Est GFR (African American) 13.1 ml/min; Est GFR (Non-African American) 11.3 ml/min; Potassium 3.3 mmol/L (3.5-5.1); Total Protein 6.5 gm/dl (6.0-8.3)
[2022-04-21] MEDS ORDERED: CALCITONIN SALMON 400 UNITS/2 ML SQ SCH ×2 (00:30→09:00)
[2022-04-21] MEDS ORDERED: CALCITONIN SALMON 200 UNITS in SYRINGE 0 ML SQ SCH (01:00)
[2022-04-21] MEDS ORDERED: LACTATED RINGER'S 1,000 ML IV ONE (01:19)
[2022-04-21] MEDS ORDERED: NORMOSOL-R 1,000 ML IV ONE (01:32)
[2022-04-21] MEDS ORDERED: POTASSIUM CHLORIDE CRTAB 20 MEQ TABCR PO STA (01:35)
[2022-04-21] MEDS ORDERED: LACTATED RINGER'S 1,000 ML IV SCH (03:30)
[2022-04-21] MEDS: NORMOSOL-R 1,000 ML IV SCH ×4 (03:47→23:23)
[2022-04-21 07:06] LABS: Basophils # (auto) 0.02 K/uL (0-0.2); Basophils % (auto) 0.3 %; Eosinophils # (auto) 0.06 K/uL (0-0.50); Eosinophils % (auto) 0.8 %; Hematocrit (blood only) 22.2 % (34.1-44.9); Hemoglobin 7.6 g/dl (12.0-16.0); Immature Granulocytes # (auto) 0.06 K/uL (0.00-0.02); Immature Granulocytes % (auto) 0.8 %; Lymphocytes # (auto) 1.29 K/uL (1.2-3.4); Lymphocytes % (auto) 17.2 %; Mean Corpuscular Hemoglobin 32.1 pg (25.0-34.0); Mean Corpuscular Hgb Conc 34.2 g/dL (32.0-36.0); Mean Corpuscular Volume 93.7 fL (80.0-100.0); Mean Platelet Volume 10.3 fL (9.4-12.3); Monocytes # (auto) 0.92 K/uL (0.24-0.82); Monocytes % (auto) 12.3 %; Neutrophils # (auto) 5.13 K/uL (1.4-6.5); Neutrophils % (auto) 68.6 %; Platelet Count 166 K/uL (130-400); RDW Coefficient of Variation 12.7 % (11.5-14.5); RDW Standard Deviation 43.3 fL (36.4-46.3); Red Blood Count 2.37 M/uL (3.93-5.22); White Blood Count 7.48 K/ul (4.8-10.8)
--- NOTE | 2022-04-21 07:26 | XRay Report ---
XR chest 1V portable CLINICAL HISTORY: renal failure TECHNIQUE: Single frontal radiograph of the chest was obtained. Comparison: None available at the time of this dictation. FINDINGS: No lines and tubes are seen. The aorta is tortuous. The remainder of the cardiomediastinal silhouette is unremarkable. The lungs are clear. No evidence of pleural effusion or pneumothorax. IMPRESSION: No acute chest disease. ACT 112: Negative or not required by law. Electronically signed by: Edy Ramirez M.D. 04/21/2022 7:24 AM
[2022-04-21] MEDS ORDERED: PNEUMOCOCCAL Polysaccharide Vaccine 25mcg/0.5mL vial/Syr IM ONE (09:00)
[2022-04-21] MEDS: ANASTROZOLE 1 MG TAB PO SCH (09:26)
[2022-04-21] MEDS: CALCITONIN SALMON 200 UNITS in SYRINGE 0 ML SQ SCH ×2 (09:29→20:32)
[2022-04-21] MEDS: HEPARIN SOD 5,000 UNIT/0.5 ML VIAL SQ SCH ×2 (09:59→20:34)
[2022-04-21 10:10] LABS: BUN Creatinine Ratio 12.8 (10-20); Calcium 12.7 mg/dl (8.5-10.1); Est GFR (African American) 13.8 ml/min; Est GFR (Non-African American) 11.9 ml/min; Potassium 3.9 mmol/L (3.5-5.1)
--- NOTE | 2022-04-21 14:42 | Hospitalist Progress Note ---
Date of Service April 21, 2022 Assessment & Plan (1) Hypercalcemia: Plan: Clinical picture seems most consistent with underlying malignancy in view of imaging and prior history of breast cancer. - Continue IV fluid hydration - HOLD calcium supplement - Outpatient follow-up with oncology shortly after D/C - Check SPEP/UPEP -Appreciate nephrology input and recommendation -Received 1 dose of Zometa at 2:31PM today -Calcium level went down to 12.7 from 15.8 on admission -We will continue calcitonin, IV fluid and monitor PRP and calcium (2) FAUSTO (acute kidney injury): Plan: Baseline creatinine appears to be around 0.6. Today it is 3.95. -CT of the abdomen pelvis did show osteopenia with innumerable lytic foci suggestive of multiple myeloma -Appropriate blood tests have been sent -Appreciate nephrology input and recommendation - Holding lisinopril/HCTZ - will need to monitor BP closely. If becomes markedly elevated off home meds, may need to consider a PRN med. -Creatinine is minimally improved at 3.58 (3) Anemia: Plan: Hgb in December was ~13, today 8.8. Pt denies overt blood loss that she can recall. - Iron studies, B12, folate, retic count - Heme check stools - most recent screening colonoscopy was in 2018 and was negative -Anemia is likely secondary to acute kidney disease/multiple myeloma (4) Hypokalemia: Plan: - Replete and recheck this evening - Add Magnesium level to labs (5) Hypertension: Plan: Blood pressure remains on the upper side at 150/72 Will monitor (6) History of breast cancer: (7) High cholesterol: Plan: Continue other home medications as appropriate Code Status: DNR/DNI - pt does not have a living will/POA but states that her son and daughter would make decisions if she couldn't DVT Prophylaxis: SubQ heparin Admission and Anticipated Discharge Date Admission Date: April 20, 2022 Subjective 04/21/2022 The patient was seen and examined in telemetry unit She has been feeling much better today Denies any shortness of breath at rest Denies any chest pain and/or palpitation She looked very dry Review of Systems Review of Systems: All systems reviewed and are unremarkable except as noted below Physical Exam Physical Exam: Lying in bed with minimal shortness of breath at rest Constitutional: well developed, well nourished, + ill appearing and average body habitus Eyes: PERRL, conjunctivae normal, anicteric sclerae ENMT: external ear and nose normal, oropharynx normal Respiratory: + respiratory distress (Minimal distress at rest) Auscultation: + diminished lung sounds and + crackles (Bibasilar crackles) Cardiovascular: Rate/Rhythm: regular rate and regular rhythm; not tachycardic Heart Sounds: normal S1 and normal S2; no murmur Extremities: no edema Gastrointestinal (Abdomen): Inspection/Auscultation: normal bowel sounds; abdomen not distended Percussion/Palpation: abdomen soft; abdomen nontender Musculoskeletal: No acute arthritis in any joint Neurologic: Alert, awake and oriented x3. Generally weak but no focal sensory or no motor deficit appreciated Lymphatic: no cervical or axillary lymphadenopathy Results & Data Results & [facility] ([facility]) Vital Signs (Past 12 Hours) Vital Signs Temp Pulse Pulse Resp BP Pulse Ox 04/21/22 12:05 36.6 C 93 H 18 150/72 H 96 04/21/22 07:59 36.6 C 91 H 20 135/75 96 04/21/22 07:31 76 04/21/22 04:37 36.9 C 92 H 19 124/68 96 Laboratory Results Short CBC 04/21/22 Range/Units 06:18 WBC 7.48 (4.8-10.8) K/ul Hgb 7.6 L (12.0-16.0) g/dl Hct 22.2 L (34.1-44.9) % Plt Count 166 (130-400) K/uL BMP 04/20/22 04/21/22 20:43 06:18 Sodium 135 L 136 Potassium 3.3 L 3.9 Chloride 98 102 Carbon Dioxide 29 25 BUN 50 H 46 H Creatinine 3.74 H 3.58 H Glucose 83 70 Calcium 14.6 H* 12.7 H* Liver Function 04/20/22 Range/Units 20:43 Total Bilirubin 0.9 (0.2-1.0) mg/dl Direct Bilirubin 0.2 (0-0.2) mg/dl AST 30 (13-39) U/L ALT 21 (7-52) U/L Alkaline Phosphatase 67 (34-104) U/L Albumin 4.0 (3.4-5.0) gm/dl Medications Administered Current Inpatient Medications Acetaminophen (Acetaminophen 325 Mg Tab) 650 mg PO Q4H PRN PRN Reason: Pain or Fever Stop: 05/20/22 15:09 Anastrozole (Anastrozole 1 Mg Tab) 1 mg PO DAILY [facility] Stop: 05/21/22 08:59 Last Admin: 04/21/22 09:26 Dose: 1 mg Documented by: Atorvastatin Calcium (Atorvastatin 10 Mg Tab) 10 mg PO HS [facility] Stop: 05/20/22 20:59 Last Admin: 04/20/22 19:52 Dose: 10 mg Documented by: Diclofenac Sodium (Diclofenac Sod 1% Gel 100 Gm Tube) 2 gm EXT BID [facility]; Protocol Stop: 05/21/22 20:59 Heparin Sodium (Porcine) (Heparin Sod 5,000 Unit/0.5 Ml Vial) 5,000 units SQ Q12 [facility] Stop: 05/20/22 20:59 Last Admin: 04/21/22 09:59 Dose: 5,000 units Documented by: Parenteral Electrolytes (Normosol-R) 1,000 mls @ 150 mls/hr IV .Q6H40M [facility] Stop: 05/21/22 03:29 Last Admin: 04/21/22 09:30 Dose: 150 mls/hr Documented by: Calcitonin [place] 200 units/ (Syringe) 1 mls @ 0 mls/sec SQ Q12H [facility] Stop: 05/21/22 08:59 Last Admin: 04/21/22 09:29 Dose: 1 mls/sec Documented by:
[2022-04-21] MEDS ORDERED: ZOLEDRONIC ACID 4 MG in 0.9 % SODIUM CHLORIDE 100 ML IV ONE (15:00)
--- NOTE | 2022-04-21 15:46 | Consultation Report ---
NEPHROLOGY CONSULTATION NOTE DATE OF CONSULT: 04/21/2022. REASON FOR CONSULTATION: Acute renal failure and hypercalcemia. HISTORY OF PRESENT ILLNESS: The patient is a 72-year-old female with history of hypertension, dyslipidemia, breast cancer, status post mastectomy and chemotherapy and chronic Arimidex therapy. However, she had normal kidney function with a creatinine at baseline of 0.6. Has a history of mild diabetes, but not on any medication. She presented to the Emergency Department yesterday with increasing back pain, confusion, weakness. She was brought to the hospital by her son who is at the bedside. She has had progressive loss of appetite as well as decreased food intake and weight loss. Workup in the Emergency Department, was very abnormal and showed critically high calcium, acute renal failure. Creatinine was 3.95, calcium was 15.8. She had a CT abdomen and pelvis and showed osteopenia with many lytic foci representing multiple myeloma or metastatic cancer. Since admission, she has got calcitonin as well as IV fluids and with that calcium is trending down nicely. Most recent calcium is now down to 12.7. However, creatinine has not changed much, it was 3.95 on admission, it is still 3.58. The patient is making lots of urine, but it is not being measured; as of now, she does not have any shortness of breath. ALLERGIES: None. MEDICATIONS: Home medication includes Arimidex, Lipitor, calcium and vitamin D twice daily, lisinopril 20/hydrochlorothiazide 12.5 daily. PAST MEDICAL HISTORY: Breast cancer, hyperlipidemia, hypertension. PAST SURGICAL HISTORY: Mastectomy of the left breast. FAMILY HISTORY: Negative for renal disease or dialysis. SOCIAL HISTORY: No smoking, no alcohol. She feels safe at home. No oxygen, no cane, but lately she has been feeling very weak and had to use walker. REVIEW OF SYSTEMS: As detailed in HPI; unless stated otherwise, 12 systems reviewed and negative. Positive review of system included progressive weakness, anorexia, weight loss, increasing back pain, confusion. PHYSICAL EXAMINATION: GENERAL: Elderly white female who appears to be thin and frail. She is not in any overt respiratory distress. She is awake, alert and oriented. HEENT: Mucous membrane is moist. NECK: Supple. No jugular venous distention. CHEST: Bilateral decreased breath sound at the bases. CVS: S1 and S2, regular. ABDOMEN: Soft, nontender. EXTREMITIES: Show no edema. She does have tenderness in the multiple spots in the spine. LABORATORY TEST: Blood work shows creatinine of 3.95 on admission with a baseline of 0.6, this morning is 3.58. Calcium was 15.8, this morning is 12.7. Most recent labs show sodium 136, potassium 3.9, BUN 46, creatinine 3.58. PTH is suppressed at 9.4. Potassium was low at 3.0 on admission. Chest x-ray, abdominal pelvis CT, head CT was reviewed. CT head does not show any obvious lesion, but CT abdomen and pelvis shows numerous osteopenia and lytic foci all over the area. ASSESSMENT AND PLAN: A 72-year-old female who presented to the hospital with progressive weakness, weight loss, back pain of few weeks' duration and was found to have possible multiple myeloma with associated acute renal failure and hypercalcemia. I have been consulted for management of hypercalcemia and acute renal failure. 1. Hypercalcemia: This is improving nicely. Calcium was 15.8 and now it is down to 12.7 in less than 24-hour time period with just use of calcitonin and IV fluid. I would give a total dose of 4 for this calcitonin so we can stop it after four doses. Continue IV fluid for now. It seems she is keeping up with her urine output. If her urine output drops significantly, we may have to use Lasix also, but for now, I think we can use just IV fluid. I would also add IV Zometa 4 mg for prolonged stabilization of calcium given most likely diagnosis of multiple myeloma. Myeloma tests already ordered and is pending 2. Acute renal failure: There might be some prerenal component, but I believe predominantly it is related with multiple myeloma as well as critically high calcium. Serum creat did not drop much over the last 24-hour time period, which is concerning. We will continue to follow, but no further workup is needed as most likely this is associated with Myeloma. Daily creat trending 3. Pending Hematology/Oncology input. I will continue to follow the patient, both as an inpatient as well as outpatient. Thank you very much for the consult. Job ID: [id number] PATTI
[2022-04-21] MEDS: DICLOFENAC SOD 1% GEL 100 GM TUBE EXT SCH (20:33)
[2022-04-21] MEDS: ATORVASTATIN 10 MG TAB PO SCH (20:34)
[2022-04-22] MEDS: NORMOSOL-R 1,000 ML IV SCH ×2 (05:35→14:55)
[2022-04-22 07:49] LABS: Hematocrit (blood only) 20.5 % (34.1-44.9); Hemoglobin 7.1 g/dl (12.0-16.0); Mean Corpuscular Hemoglobin 32.4 pg (25.0-34.0); Mean Corpuscular Hgb Conc 34.6 g/dL (32.0-36.0); Mean Corpuscular Volume 93.6 fL (80.0-100.0); Mean Platelet Volume 10.4 fL (9.4-12.3); Platelet Count 161 K/uL (130-400); RDW Coefficient of Variation 12.8 % (11.5-14.5); RDW Standard Deviation 43.8 fL (36.4-46.3); Red Blood Count 2.19 M/uL (3.93-5.22); White Blood Count 8.03 K/ul (4.8-10.8)
[2022-04-22 08:10] LABS: Basophils # (auto) 0.02 K/uL (0-0.2); Basophils % (auto) 0.2 %; Eosinophils # (auto) 0.06 K/uL (0-0.50); Eosinophils % (auto) 0.7 %; Immature Granulocytes # (auto) 0.06 K/uL (0.00-0.02); Immature Granulocytes % (auto) 0.7 %; Lymphocytes # (auto) 1.21 K/uL (1.2-3.4); Lymphocytes % (auto) 15.1 %; Monocytes # (auto) 0.94 K/uL (0.24-0.82); Monocytes % (auto) 11.7 %; Neutrophils # (auto) 5.74 K/uL (1.4-6.5); Neutrophils % (auto) 71.6 %
[2022-04-22 08:13] LABS: Calcium 10.8 mg/dl (8.5-10.1); Creatinine Clr Calc Pharmacy 13.4 ml/min; Est GFR (African American) 16.6 ml/min; Est GFR (Non-African American) 14.3 ml/min; Potassium 3.5 mmol/L (3.5-5.1)
--- NOTE | 2022-04-22 08:45 | Nephrology Progress Note ---
Date of Service April 22, 2022 Assessment & Plan Admission and Anticipated Discharge Date Admission Date: April 20, 2022 Subjective S--no new issues. Feels fine. No SOB. Making lot of urine--not measured. PHYSICAL EXAMINATION: GENERAL: Elderly white female who appears to be thin and frail. She is not in any overt respiratory distress. She is awake, alert and oriented. HEENT: Mucous membrane is moist. NECK: Supple. No jugular venous distention. CHEST: Bilateral decreased breath sound at the bases. CVS: S1 and S2, regular. ABDOMEN: Soft, nontender. EXTREMITIES: Show no edema. She does have tenderness in the multiple spots in the spine. LABORATORY TEST: Blood work shows creat 3 ca 10.8. reviewed in detail. ASSESSMENT AND PLAN: A 72-year-old female who presented to the hospital with progressive weakness, weight loss, back pain of few weeks' duration and was found to have possible multiple myeloma with associated acute renal failure and hypercalcemia. I have been consulted for management of hypercalcemia and acute renal failure. 1. Hypercalcemia: This is improving nicely. Calcium was 15.8 and now it is down to 10 range. I would give a total dose of 4 for this calcitonin so we can stop it after four doses. Continue IV fluid for now. It seems she is keeping up with her urine output. S/p IV Zometa 4 mg for prolonged stabilization of calcium given most likely diagnosis of multiple myeloma. Myeloma tests already ordered and is pending. Given her small size will lower the fluid rate to 80 ml/hr. 2. Acute renal failure: There might be some prerenal component, but I believe predominantly it is related with multiple myeloma as well as critically high calcium. Serum creat dropping but slowly. We will continue to follow, but no further workup is needed as most likely this is associated with Myeloma with some pre renal component. . Daily creat trending 3. Pending Hematology/Oncology input. I will continue to follow the patient, both as an inpatient as well as outpatient. Results & Data ([facility]) Vital Signs (Past 12 Hours) Vital Signs Temp Pulse Pulse Resp BP Pulse Ox O2 Del Method 04/22/22 07:54 36.9 C 84 18 120/69 94 Room Air 04/22/22 07:39 73 04/22/22 05:31 95 H 16 121/73 93 04/21/22 23:42 85 04/21/22 23:39 36.7 C 79 20 143/83 H 97 Room Air
[2022-04-22] MEDS: CALCITONIN SALMON 200 UNITS in SYRINGE 0 ML SQ SCH ×2 (08:47→20:46)
[2022-04-22] MEDS: ANASTROZOLE 1 MG TAB PO SCH (08:47)
[2022-04-22] MEDS: DICLOFENAC SOD 1% GEL 100 GM TUBE EXT SCH ×2 (08:47→20:19)
[2022-04-22] MEDS: HEPARIN SOD 5,000 UNIT/0.5 ML VIAL SQ SCH ×2 (08:48→20:20)
[2022-04-22] MEDS ORDERED: CALCIUM CARBONATE 500 MG CHEWABLE TAB PO PRN (15:09)
--- NOTE | 2022-04-22 15:56 | Hospitalist Progress Note ---
Date of Service April 22, 2022 Assessment & Plan (1) Hypercalcemia: Plan: -CT of the abdomen pelvis did show osteopenia with innumerable lytic foci suggestive of multiple myeloma -Currently on Calcitonin, plan for 4 doses. s/p Zomeda (2) FAUSTO (acute kidney injury): Plan: Baseline creatinine appears to be around 0.6. On admission Cr is 3.95 -Improved to 3, IVF reduced to 80 cc/hr -Appreciate Nephrology input (3) Anemia: Plan: Hgb in December was ~13, today 8.8. Pt denies overt blood loss that she can recall. - Iron studies, B12, folate, retic count - Heme check stools - most recent screening colonoscopy was in 2018 and was negative -Anemia is likely secondary to acute kidney disease/multiple myeloma -transfuse for Hb< 8 (4) Hypokalemia: Plan: - Replete PRN (5) Hypertension: Plan: holding lisinopril/HCTZ for now (6) History of breast cancer: Plan: -patient follows with [facility] Oncology (7) High cholesterol: Plan Abnormal UA Bacterial vaginosis, asymptomatic -patient with no UTI symptoms and no vaginal discharge. Urine Culture +gardnerella like bacteria. Will start flagyl, plan for 7 day course Code Status: DNR/DNI - pt does not have a living will/POA but states that her son and daughter would make decisions if she couldn't DVT Prophylaxis: SubQ heparin Disposition: PT/OT evaluation, likely will need SNF. Admission and Anticipated Discharge Date Admission Date: April 20, 2022 Subjective Feels very weak Physical Exam Physical Exam: Weak, drowsy, pale ENMT: Mucous membrane dry, normocephalic, atraumatic, conjunctiva pallor Respiratory: Breathing comfortably on room air, no wheezing/rhonchi/rales Cardiovascular: Regular rate and rhythm, no murmurs/rubs/gallops Gastrointestinal (Abdomen): soft, non tender Musculoskeletal: No edema, no cyanosis or clubbing Neurologic: drowsy, arousable, spontaneously moving extremities Results & Data Results & Data ([facility]) Vital Signs (Past 12 Hours) Vital Signs Temp Pulse Pulse Resp BP Pulse Ox O2 Del Method 04/22/22 15:32 36.5 C 89 18 144/74 H 93 Room Air 04/22/22 15:07 73 04/22/22 12:12 36.4 C L 86 19 135/79 95 Room Air 04/22/22 07:54 36.9 C 84 18 120/69 94 Room Air 04/22/22 07:39 73 04/22/22 05:31 95 H 16 121/73 93 Laboratory Results Short CBC 04/22/22 Range/Units 07:01 WBC 8.03 (4.8-10.8) K/ul Hgb 7.1 L (12.0-16.0) g/dl Hct 20.5 L* (34.1-44.9) % Plt Count 161 (130-400) K/uL BMP 04/22/22 07:01 Sodium 136 Potassium 3.5 Chloride 101 Carbon Dioxide 26 BUN 43 H Creatinine 3.08 H D Glucose 106 H Calcium 10.8 H Medications Administered Current Inpatient Medications Acetaminophen (Acetaminophen 325 Mg Tab) 650 mg PO Q4H PRN PRN Reason: Pain or Fever Stop: 05/20/22 15:09 Anastrozole (Anastrozole 1 Mg Tab) 1 mg PO DAILY [facility] Stop: 05/21/22 08:59 Last Admin: 04/22/22 08:47 Dose: 1 mg Atorvastatin Calcium (Atorvastatin 10 Mg Tab) 10 mg PO HS JEFE Stop: 05/20/22 20:59 Last Admin: 04/21/22 20:34 Dose: 10 mg Calcium Carbonate (Calcium Carbonate 500 Mg Chewable Tab) 500 mg PO TID PRN PRN Reason: Indigestion Stop: 05/22/22 15:08 Diclofenac Sodium (Diclofenac Sod 1% Gel 100 Gm Tube) 2 gm EXT BID JEFE; Protocol Stop: 05/21/22 20:59 Last Admin: 04/22/22 08:47 Dose: 2 gm Heparin Sodium (Porcine) (Heparin Sod 5,000 Unit/0.5 Ml Vial) 5,000 units SQ Q12 JEFE Stop: 05/20/22 20:59 Last Admin: 04/22/22 08:48 Dose: 5,000 units Parenteral Electrolytes (Normosol-R) 1,000 mls @ 80 mls/hr IV .[id number] JEFE Stop: 05/21/22 03:29 Last Admin: 04/22/22 14:55 Dose: 80 mls/hr Calcitonin Othello 200 units/ (Syringe) 1 mls @ 0 mls/sec SQ Q12H JEFE Stop: 04/22/22 21:01 Last Admin: 04/22/22 08:47 Dose: 1 mls/sec Pantoprazole Sodium (Pantoprazole 40 Mg Tab) 40 mg PO QAM JEFE Stop: 05/23/22 08:59
[2022-04-22 18:25] LABS: Albumin 3.1 g/dL (3.8-4.8); Alpha 1 Globulin 0.4 g/dL (0.2-0.3); Alpha 2 Globulin 0.8 g/dL (0.5-0.9); Beta-1-Globulin 0.2 g/dL (0.4-0.6); Beta-2-Globulin 0.3 g/dL (0.2-0.5); Gamma Globulin 0.4 g/dL (0.8-1.7); Monoclonal Protein Band 1 0.2 g/dL (NONE DETECTED); Monoclonal Protein Band 2 DNR g/dL (NONE DETECTED); Monoclonal Protein Band 3 DNR g/dL (NONE DETECTED); Total Protein 5.2 g/dL (6.1-8.1)
[2022-04-22] MEDS: metroNIDAZOLE 500 MG TAB PO SCH (20:19)
[2022-04-22] MEDS: ATORVASTATIN 10 MG TAB PO SCH (20:19)
[2022-04-23] MEDS: NORMOSOL-R 1,000 ML IV SCH ×2 (03:25→04:57)
[2022-04-23 07:37] LABS: Hemoglobin 7.5 g/dl (12.0-16.0); Mean Corpuscular Hemoglobin 31.8 pg (25.0-34.0); Mean Corpuscular Hgb Conc 34.1 g/dL (32.0-36.0); Mean Corpuscular Volume 93.2 fL (80.0-100.0); Mean Platelet Volume 10.6 fL (9.4-12.3); Platelet Count 182 K/uL (130-400); RDW Coefficient of Variation 12.9 % (11.5-14.5); RDW Standard Deviation 43.8 fL (36.4-46.3); Red Blood Count 2.36 M/uL (3.93-5.22); White Blood Count 10.16 K/ul (4.8-10.8)
[2022-04-23 08:04] LABS: BUN Creatinine Ratio 12.8 (10-20); Calcium 10.3 mg/dl (8.5-10.1); Creatinine Clr Calc Pharmacy 14.7 ml/min; Est GFR (African American) 17.9 ml/min; Est GFR (Non-African American) 15.5 ml/min; Phosphorus 3.1 mg/dl (2.5-4.9); Potassium 3.3 mmol/L (3.5-5.1)
[2022-04-23] MEDS ORDERED: POTASSIUM CHLORIDE 40 MEQ in NORMOSOL-R 1,000 ML IV STA (09:01)
--- NOTE | 2022-04-23 09:06 | Nephrology Progress Note ---
Date of Service April 23, 2022 Assessment & Plan (1) Hypercalcemia: Plan: improving hypercalcemia of malignancy w/ findings concerning for MM or metastatic CA (pt w/hx breast CA) admitted w/ Ca 15.8, improving with calcitonin, IVF, zometa to 10.3 today -cont normosol 80 mL hourly while in house w/ change as below -daily bmp (2) Hypokalemia: Plan: chronic this admission >> added 40 mEq/L K to normosol rx -daily bmp (3) FAUSTO (acute kidney injury): Plan: improving Stage 3 FAUSTO in part prerenal but concerning for other etiologies as w ell given potential for dx of MM; improvement notable but relatively slow baseline creatinine 0.6; admitted w/ creatinine 4 on 04/20 -daily bmp -normosol as above -needs OP neph f/u Admission and Anticipated Discharge Date Admission Date: April 20, 2022 Subjective did OT/PT this am and tired but did walk. poor po. no sob, no abd pain or voiding concerns from pt Review of Systems Review of Systems: All systems reviewed & are unremarkable except as noted in Subjective Physical Exam Constitutional: well developed, well nourished, + acute distress, + frail appearing and cooperative Eyes: EOM intact bilaterally ENMT: Ears: no external ear abnormality Nose: no external nose abnormality Mouth: + dry oral mucous membranes Neck: no nuchal rigidity Respiratory: normal respiratory effort Auscultation: + diminished lung sounds and + crackles (R base) Cardiovascular: Rate/Rhythm: regular rhythm and + tachycardic Extremities: no edema Gastrointestinal (Abdomen): Inspection/Auscultation: normal bowel sounds Percussion/Palpation: abdomen soft; abdomen nontender Musculoskeletal: Extremities: strength 5/5 throughout Skin: no rashes, warm and dry Neurologic: rodriguez, fluent speech, no tremor; slight generalized weakness Results & Data ([facility]) Vital Signs (Past 12 Hours) Vital Signs Temp Pulse Pulse Resp BP Pulse Ox O2 Del Method 04/23/22 06:24 36.9 C 96 H 20 127/71 94 Room Air 04/23/22 06:10 82 04/23/22 03:05 36.8 C 87 22 127/75 94 Room Air 04/22/22 22:30 77 04/22/22 22:57 36.6 C 87 17 134/73 93 Room Air Laboratory Results 04/23/22 06:42 04/23/22 06:42
[2022-04-23] MEDS: DICLOFENAC SOD 1% GEL 100 GM TUBE EXT SCH ×2 (09:11→20:13)
[2022-04-23] MEDS: metroNIDAZOLE 500 MG TAB PO SCH ×2 (09:11→20:12)
[2022-04-23] MEDS: SACCHAROMYCES BOULARDII 250 MG CAP PO SCH (09:11)
[2022-04-23] MEDS: PANTOprazole 40 MG TAB PO SCH (09:11)
[2022-04-23] MEDS: ANASTROZOLE 1 MG TAB PO SCH (09:11)
[2022-04-23] MEDS: HEPARIN SOD 5,000 UNIT/0.5 ML VIAL SQ SCH ×2 (09:12→20:13)
--- NOTE | 2022-04-23 16:34 | Hospitalist Progress Note ---
Date of Service April 23, 2022 Assessment & Plan (1) Hypercalcemia: Plan: -CT of the abdomen pelvis did show osteopenia with innumerable lytic foci suggestive of multiple myeloma -s/p Calcitonin x 4 doses. s/p Zomeda -continue IVF per Nephrology -SPEP shows M spike, UPEP pending. Discussed with patient and her family, she will need to follow up with her oncologist (sees [facility] group) for further outpatient workup including bone marrow biopsy and to discuss treatment options. (2) FAUSTO (acute kidney injury): Plan: Baseline creatinine appears to be around 0.6. On admission Cr is 3.95--> impr oving slowly to 2.8 -Appreciate Nephrology input (3) Anemia: Plan: Hgb in December was ~13. Pt denies overt blood loss that she can recall. - Iron studies, B12, folate normal - Heme check stools - most recent screening colonoscopy was in 2018 and was negative -transfuse for Hb< 8 (4) Hypokalemia: Plan: - Replete PRN (5) Hypertension: Plan: holding lisinopril/HCTZ for now (6) History of breast cancer: Plan: -patient follows with [facility] Oncology (7) High cholesterol: Plan Abnormal UA Bacterial vaginosis, asymptomatic -patient with no UTI symptoms and no vaginal discharge. Urine Culture +gardnerella like bacteria. Will start flagyl, plan for 7 day course Code Status: DNR/DNI - pt does not have a living will/POA but states that her son and daughter would make decisions if she couldn't DVT Prophylaxis: SubQ heparin Disposition: Evaluated by PT and OT today, patient did well. Would recommend return home with home care services when she is medically stable. Family (daughter and son-in-law) were updated on care plan and all questions were answered. Admission and Anticipated Discharge Date Admission Date: April 20, 2022 Subjective Patient with poor oral intake, feels weak, very unmotivated to eat or get out of bed She isn't particularly interested in inpatient rehab or SNF and instead wants to return home I spoke with her family (daughter and son-in-law today) and answered all their questions. They are in agreement that home may be best setting for her. They are concerned that she may have underlying depression and requested psychiatry evaluation. We did discuss that any antidepressant medication we start here will need follow up with PCP or psychiatry outpatient and will take several weeks to become effective. Physical Exam Physical Exam: generalized weakness, listless, non toxic ENMT: normocephalic, atraumatic, mucous membrane dry Respiratory: breathing comfortably on room air, no wheezing/rhonchi/rales Cardiovascular: regular rate and rhythm, no murmurs/rubs/gallops Gastrointestinal (Abdomen): hypoactive, soft, non tender Musculoskeletal: No edema, no cyanosis or clubbing Neurologic: awake, alert, spontaneously moving extremities Psychiatric: flat affect, speech soft, non pressured Results & Data Results & Data ([facility]) Vital Signs (Past 12 Hours) Vital Signs Temp Pulse Pulse Resp BP Pulse Ox O2 Del Method 04/23/22 14:16 94 H 04/23/22 15:52 36.6 C 93 H 16 151/85 H 93 Room Air 04/23/22 11:59 36.6 C 87 16 132/66 95 Room Air 04/23/22 06:24 36.9 C 96 H 20 127/71 94 Room Air 04/23/22 06:10 82 Laboratory Results Short CBC 04/23/22 Range/Units 06:42 WBC 10.16 (4.8-10.8) K/ul Hgb 7.5 L (12.0-16.0) g/dl Hct 22.0 L (34.1-44.9) % Plt Count 182 (130-400) K/uL BMP 04/23/22 06:42 Sodium 137 Potassium 3.3 L Chloride 102 Carbon Dioxide 25 BUN 37 H Creatinine 2.89 H Glucose 83 Calcium 10.3 H Medications Administered Current Inpatient Medications Acetaminophen (Acetaminophen 325 Mg Tab) 650 mg PO Q4H PRN PRN Reason: Pain or Fever Stop: 05/20/22 15:09 Anastrozole (Anastrozole 1 Mg Tab) 1 mg PO DAILY [facility] Stop: 05/21/22 08:59 Last Admin: 04/23/22 09:11 Dose: 1 mg Atorvastatin Calcium (Atorvastatin 10 Mg Tab) 10 mg PO HS JEFE Stop: 05/20/22 20:59 Last Admin: 04/22/22 20:19 Dose: 10 mg Diclofenac Sodium (Diclofenac Sod 1% Gel 100 Gm Tube) 2 gm EXT BID JEFE; Protocol Stop: 05/21/22 20:59 Last Admin: 04/23/22 09:11 Dose: 2 gm Dronabinol (Dronabinol 2.5 Mg Cap) 2.5 mg PO BID [facility] Stop: 05/23/22 20:59 Heparin Sodium (Porcine) (Heparin Sod 5,000 Unit/0.5 Ml Vial) 5,000 units SQ Q12 [facility]FE Stop: 05/20/22 20:59 Last Admin: 04/23/22 09:12 Dose: 5,000 units Potassium Chloride 40 meq/ (Parenteral Electrolytes) 1,020 mls @ 80 mls/hr IV .[id number] STA Stop: 04/23/22 21:44 Last Admin: 04/23/22 10:17 Dose: 80 mls/hr Metronidazole (Metronidazole 500 Mg Tab) 500 mg PO BID [facility]; Protocol Stop: 04/29/22 20:59 Last Admin: 04/23/22 09:11 Dose: 500 mg Pantoprazole Sodium (Pantoprazole 40 Mg Tab) 40 mg PO QAM [facility]FE Stop: 05/23/22 08:59 Last Admin: 04/23/22 09:11 Dose: 40 mg Saccharomyces Boulardii (Saccharomyces Boulardii 250 Mg Cap) 250 mg PO DAILY [facility] Stop: 05/23/22 08:59 Last Admin: 04/23/22 09:11 Dose: 250 mg
[2022-04-23] MEDS: ATORVASTATIN 10 MG TAB PO SCH (20:13)
[2022-04-24 07:55] LABS: Albumin Globulin Ratio 1.5 (0.9-2); Albumin Level 3.3 gm/dl (3.4-5.0); BUN Creatinine Ratio 11.3 (10-20); Bilirubin,Total 0.7 mg/dl (0.2-1.0); Calcium 9.5 mg/dl (8.5-10.1); Creatinine Clr Calc Pharmacy 13.5 ml/min; Est GFR (Non-African American) 14.7 ml/min; Globulin 2.2 gm/dl (2.5-4.0); Potassium 3.1 mmol/L (3.5-5.1); Total Protein 5.5 gm/dl (6.0-8.3)
[2022-04-24 08:37] LABS: Hematocrit (blood only) 20.7 % (34.1-44.9); Mean Corpuscular Hemoglobin 31.8 pg (25.0-34.0); Mean Corpuscular Hgb Conc 33.8 g/dL (32.0-36.0); Mean Corpuscular Volume 94.1 fL (80.0-100.0); Mean Platelet Volume 10.5 fL (9.4-12.3); Platelet Count 162 K/uL (130-400); RDW Coefficient of Variation 13.2 % (11.5-14.5); RDW Standard Deviation 45.1 fL (36.4-46.3); White Blood Count 8.89 K/ul (4.8-10.8)
[2022-04-24] MEDS: metroNIDAZOLE 500 MG TAB PO SCH ×2 (08:40→20:07)
[2022-04-24] MEDS: HEPARIN SOD 5,000 UNIT/0.5 ML VIAL SQ SCH ×2 (08:40→20:07)
[2022-04-24] MEDS: PANTOprazole 40 MG TAB PO SCH (08:40)
[2022-04-24] MEDS: SACCHAROMYCES BOULARDII 250 MG CAP PO SCH (08:40)
[2022-04-24] MEDS: ANASTROZOLE 1 MG TAB PO SCH (08:40)
[2022-04-24] MEDS: DICLOFENAC SOD 1% GEL 100 GM TUBE EXT SCH ×2 (08:40→20:06)
[2022-04-24] MEDS ORDERED: POTASSIUM CHLORIDE CRTAB 20 MEQ TABCR PO STA ×2 (08:53→09:33)
--- NOTE | 2022-04-24 09:38 | Nephrology Progress Note ---
Date of Service April 24, 2022 Assessment & Plan (1) Hypercalcemia: Plan: improving hypercalcemia of malignancy w/ findings concerning for MM or metastatic CA (pt w/hx breast CA) admitted w/ Ca 15.8, improving with calcitonin, IVF, zometa to 9.5 today -resumed normosol 125 mL hourly while in house w/ change as below -daily bmp (2) Hypokalemia: Plan: chronic this admission >> cont 40 mEq/L K to normosol rx -also K 40 mEq po x 1 now -daily bmp and bmp at 1600 (3) FAUSTO (acute kidney injury): Plan: improving Stage 3 FAUSTO in part prerenal but concerning for other etiologies as well given potential for dx of MM; improvement notable but relatively slow; her IVF unfortunately were not continued overnight but will resume now baseline creatinine 0.6 as recently as December 2021; admitted w/ creatinine 4 on 04/20 -daily bmp -normosol as above -needs OP nephrology hospital discharge appt at d/c -transfuse prn; hgb likely to drop further w/ IVF Admission and Anticipated Discharge Date Admission Date: April 20, 2022 Subjective denies sob, n/v, edema, voiding sx Review of Systems Review of Systems: All systems reviewed & are unremarkable except as noted in Subjective Physical Exam Constitutional: well developed, well nourished, + acute distress, + frail appearing and cooperative Eyes: EOM intact bilaterally ENMT: Ears: no external ear abnormality Nose: no external nose abnormality Mouth: + dry oral mucous membranes Neck: no nuchal rigidity Respiratory: normal respiratory effort Auscultation: + diminished lung sounds and + crackles (R base) Cardiovascular: Rate/Rhythm: regular rhythm and + tachycardic (in 90s) Extremities: no edema Gastrointestinal (Abdomen): Inspection/Auscultation: normal bowel sounds Percussion/Palpation: abdomen soft; abdomen nontender Musculoskeletal: Extremities: strength 5/5 throughout Skin: no rashes, warm and dry Neurologic: rodriguez, fluent speech, no tremor Results & Data ([facility]) Vital Signs (Past 12 Hours) Vital Signs Temp Pulse Pulse Resp BP Pulse Ox O2 Del Method 04/24/22 07:58 36.7 C 102 H 20 142/74 H 95 Room Air 04/24/22 03:30 37.0 C 94 H 17 135/71 94 Room Air 04/23/22 22:00 86 04/23/22 23:03 36.6 C 89 20 143/70 H 93 Room Air Laboratory Results 04/24/22 07:03 04/24/22 07:03
[2022-04-24] MEDS: POTASSIUM CHLORIDE 40 MEQ in NORMOSOL-R 1,000 ML IV SCH ×2 (11:08→20:04)
--- NOTE | 2022-04-24 11:42 | Psychiatric Consultation ---
Date of Consultation April 24, 2022 Impression / Recommendations Impression 72 yo woman with mild depression symptoms, most likely adjustment disorder with depressed mood, in context of medical illness and hospitalization. She is looking forward to going home and declines psychiatric services or outpatient resources at this time. Denies SI, no safety concerns. (1) Adjustment disorder with depressed mood: Plan -If symptoms do not improve with transition home and improvement in health she, in consultation with her outpt PCP, could consider starting outpatient psychotherapy and/or initiation of medication, would recommend SSRI or m irtazapine if needed in the future. Psych History Identifying Data 72 yo woman admitted medically expressing some symptoms of depression. History of Present Illness Shadia was seen by psych liason last night and endorsed mild depression (PHQ-9 score of 8, 0 for Q9) and declined any further psychiatric services as she feels her symptoms are situational and is future-oriented and looking forward to going home. Allergies Allergy/AdvReac Type Severity Reaction Status Date / Time No Known Allergies Allergy Unknown Verified 03/18/22 15:24 Home Medications Medication Instructions Recorded Confirmed Type anastrozole 1 mg tablet 1 mg PO DAILY 03/18/22 04/20/22 History atorvastatin 10 mg tablet 10 mg PO HS 03/18/22 04/20/22 History calcium carbonate 600 mg-vitamin 1 tab PO BID 03/18/22 04/20/22 History D3 10 mcg (400 unit) tablet (Calcium 600 + D(3)) lisinopril 20 0.5 tab PO DAILY 03/18/22 04/20/22 History mg-hydrochlorothiazide 12.5 mg tablet Personal History Beliefs That Will Affect Care: None Patient History Medical History Breast cancer High cholesterol Hypertension Surgical History History of partial mastectomy of left breast Family History Brother Cancer Pancreatic Sister Cancer Lymphoma Family/Other Cancer Niece with breast cancer at age 40 (mother had lymphoma) Uncle Cancer Brain Mother Diabetes Father Heart disease Social History Smoking Status: Never smoker Hx Alcohol Use: No Hx Substance Use: No Preferred Language: Luxembourgish Communication Ability: Effective Lead C Developer Required: No Beliefs That Will Affect Care: None Current Living Situation: Alone Other Information That Helps Us Care for You: No Feels Safe at Home: Yes Safety Concerns: Feels Safe At This Time Assistive Devices: Cane Physical Exam Vital Signs (Past 24 Hours): Last Vital Signs Temp 36.7 C 04/24/22 07:58 Pulse 92 H 04/24/22 10:44 Resp 20 04/24/22 07:58 BP 142/74 H 04/24/22 07:58 Pulse Ox 95 04/24/22 07:58 O2 Del Method 04/24/22 07:58 Results & Data ([facility]) Medications Administered Anastrozole (Anastrozole 1 Mg Tab) 1 mg PO DAILY REPLACED BY [facility] Stop: 05/21/22 08:59 Last Admin: 04/24/22 08:40 Dose: 1 mg Documented By: ALLYSON Co-signed By: BRITTANY Admin: 04/23/22 09:11 Dose: 1 mg Documented By: ALLYSON(2) Co-signed By: JOMAR Admin: 04/22/22 08:47 Dose: 1 mg Documented By: CYN Co-signed By: SARAH Admin: 04/21/22 09:26 Dose: 1 mg Documented By: CYN Co-signed By: Atorvastatin Calcium (Atorvastatin 10 Mg Tab) [address] [facility] Stop: 05/20/22 20:59 Last Admin: 04/23/22 20:13 Dose: 10 mg Documented By: Admin: 04/22/22 20:19 Dose: 10 mg Documented By: Admin: 04/21/22 20:34 Dose: 10 mg Documented By: Admin: 04/20/22 19:52 Dose: 10 mg Documented By: JULEE Diclofenac Sodium (Diclofenac Sod 1% Gel 100 Gm Tube) 2 gm EXT BID JEFE; Protocol Stop: 05/21/22 20:59 Last Admin: 04/24/22 08:40 Dose: 2 gm Documented By: Admin: 04/23/22 20:13 Dose: 2 gm Documented By: Admin: 04/23/22 09:11 Dose: 2 gm Documented By: ALLYSON(2) Admin: 04/22/22 20:19 Dose: 2 gm Documented By: Admin: 04/22/22 08:47 Dose: 2 gm Documented By: Admin: 04/21/22 20:33 Dose: 2 gm Documented By: JULEE Dronabinol (Dronabinol 2.5 Mg Cap) 2.5 mg PO BID [facility] Stop: 05/23/22 20:59 Last Admin: 04/24/22 08:40 Dose: 2.5 mg Documented By: Admin: 04/23/22 20:13 Dose: 2.5 mg Documented By: TAYLOR Heparin Sodium (Porcine) (Heparin Sod 5,000 Unit/0.5 Ml Vial) 5,000 units SQ Q12 [facility] Stop: 05/20/22 20:59 Last Admin: 04/24/22 08:40 Dose: 5,000 units Documented By: Admin: 04/23/22 20:13 Dose: 5,000 units Documented By: Admin: 04/23/22 09:12 Dose: 5,000 units Documented By: ALLYSON(2) Admin: 04/22/22 20:20 Dose: 5,000 units Documented By: Admin: 04/22/22 08:48 Dose: 5,000 units Documented By: Admin: 04/21/22 20:34 Dose: 5,000 units Documented By: Admin: 04/21/22 09:59 Dose: 5,000 units Documented By: Admin: 04/20/22 19:52 Dose: 5,000 units Documented By: JULEE Potassium Chloride 40 meq/ (Parenteral Electrolytes) 1,020 mls @ 125 mls/hr IV .Q8H10M REPLACED BY [facility] Stop: 05/24/22 09:59 Last Admin: 04/24/22 11:08 Dose: 125 mls/hr Documented By: SARAH Metronidazole (Metronidazole 500 Mg Tab) 500 mg PO BID [facility]PL[facility]ED BY [facility]; Protocol Stop: 04/29/22 20:59 Last Admin: 04/24/22 08:40 Dose: 500 mg Documented By: Admin: 04/23/22 20:12 Dose: 500 mg Documented By: Admin: 04/23/22 09:11 Dose: 500 mg Documented By: ALLYSON(2) Admin: 04/22/22 20:19 Dose: 500 mg Documented By: TAYLOR Pantoprazole Sodium (Pantoprazole 40 Mg Tab) 40 mg PO QAM REPLACED BY [facility] Stop: 05/23/22 08:59 Last Admin: 04/24/22 08:40 Dose: 40 mg Documented By: Admin: 04/23/22 09:11 Dose: 40 mg Documented By: ALLYSON(2) Saccharomyces Boulardii (Saccharomyces Boulardii 250 Mg Cap) 250 mg PO DAILY [facility] Stop: 05/23/22 08:59 Last Admin: 04/24/22 08:40 Dose: 250 mg Documented By: Admin: 04/23/22 09:11 Dose: 250 mg Documented By: ALLYSON(2) Coding Level of Care Code None Diagnoses Adjustment disorder with depressed mood F43.21
--- NOTE | 2022-04-24 12:51 | Hospitalist Progress Note ---
Date of Service April 24, 2022 Assessment & Plan (1) Hypercalcemia: Plan: -CT of the abdomen pelvis did show osteopenia with innumerable lytic foci suggestive of multiple myeloma -s/p Calcitonin x 4 doses. s/p Zomeda -continue IVF per Nephrology -SPEP shows M spike, UPEP pending. Discussed with patient and her family, she will need to follow up with her oncologist (sees [facility] group) for further outpatient workup including bone marrow biopsy and to discuss treatment options. (2) FAUSTO (acute kidney injury): Plan: Baseline creatinine appears to be around 0.6. On admission Cr is 3.95--> impr oving slowly -Appreciate Nephrology input (3) Anemia: Plan: Hgb in December was ~13. Pt denies overt blood loss that she can recall. - Iron studies, B12, folate normal - Heme check stools - most recent screening colonoscopy was in 2018 and was negative -transfuse for Hb< 7 (4) Hypokalemia: Plan: - Replete PRN (5) Hypertension: Plan: holding lisinopril/HCTZ for now (6) History of breast cancer: Plan: -patient follows with [facility] Oncology (7) High cholesterol: Plan Abnormal UA Bacterial vaginosis, asymptomatic -patient with no UTI symptoms and no vaginal discharge. Urine Culture +gardnerella like bacteria. Will start flagyl, plan for 7 day course Code Status: DNR/DNI - pt does not have a living will/POA but states that her son and daughter would make decisions if she couldn't DVT Prophylaxis: SubQ heparin Disposition: Evaluated by PT and OT 04/23, patient did well. Would recommend return home with home care services when she is medically stable. Family (daughter and son-in-law) were updated on care plan and all questions were answered--04/23 Discharge to home hopefully in next 48 hours once cleared by Nephrology Admission and Anticipated Discharge Date Admission Date: April 20, 2022 Subjective Feeling a little bit better, hopeful to go home soon Appetite is improved. Ate most of her breakfast today Physical Exam Physical Exam: Thin, cachetic, no acute distress ENMT: Mucous membrane dry, normocephalic, atraumatic Respiratory: breathing comfortably on room air, no wheezing/rhonchi Cardiovascular: regular rate and rhythm, no murmurs/rubs/gallops Gastrointestinal (Abdomen): soft, non tender, non distended Musculoskeletal: No edema, no cyanosis or clubbing Neurologic: awake, alert, spontaneously moving extremities Psychiatric: flat affect, speech soft, non pressured Results & Data Results & Data ([facility]) Vital Signs (Past 12 Hours) Vital Signs Temp Pulse Pulse Resp BP Pulse Ox O2 Del Method 04/24/22 12:28 36.6 C 100 H 19 132/73 96 Room Air 04/24/22 10:44 92 H 04/24/22 07:58 36.7 C 102 H 20 142/74 H 95 Room Air 04/24/22 03:30 37.0 C 94 H 17 135/71 94 Room Air Laboratory Results Short CBC 04/24/22 Range/Units 07:03 WBC 8.89 (4.8-10.8) K/ul Hgb 7.0 L (12.0-16.0) g/dl Hct 20.7 L* (34.1-44.9) % Plt Count 162 (130-400) K/uL BMP 04/24/22 07:03 Sodium 138 Potassium 3.1 L Chloride 104 Carbon Dioxide 24 BUN 34 H Creatinine 3.02 H Glucose 67 L Calcium 9.5 Liver Function 04/24/22 Range/Units 07:03 Total Bilirubin 0.7 (0.2-1.0) mg/dl AST 22 (13-39) U/L ALT 15 (7-52) U/L Alkaline Phosphatase 53 (34-104) U/L Albumin 3.3 L (3.4-5.0) gm/dl Medications Administered Current Inpatient Medications Acetaminophen (Acetaminophen 325 Mg Tab) 650 mg PO Q4H PRN PRN Reason: Pain or Fever Stop: 05/20/22 15:09 Anastrozole (Anastrozole 1 Mg Tab) 1 mg PO DAILY [facility] Stop: 05/21/22 08:59 Last Admin: 04/24/22 08:40 Dose: 1 mg Atorvastatin Calcium (Atorvastatin 10 Mg Tab) 10 mg PO HS [facility] Stop: 05/20/22 20:59 Last Admin: 04/23/22 20:13 Dose: 10 mg Diclofenac Sodium (Diclofenac Sod 1% Gel 100 Gm Tube) 2 gm EXT BID [facility]; Protocol Stop: 05/21/22 20:59 Last Admin: 04/24/22 08:40 Dose: 2 gm Dronabinol (Dronabinol 2.5 Mg Cap) 2.5 mg PO BID [facility] Stop: 05/23/22 20:59 Last Admin: 04/24/22 08:40 Dose: 2.5 mg Heparin Sodium (Porcine) (Heparin Sod 5,000 Unit/0.5 Ml Vial) 5,000 units SQ Q12 [facility] Stop: 05/20/22 20:59 Last Admin: 04/24/22 08:40 Dose: 5,000 units Potassium Chloride 40 meq/ (Parenteral Electrolytes) 1,020 mls @ 125 mls/hr IV .Q8H10M [facility] Stop: 05/24/22 09:59 Last Admin: 04/24/22 11:08 Dose: 125 mls/hr Metronidazole (Metronidazole 500 Mg Tab) 500 mg PO BID [facility]; Protocol Stop: 04/29/22 20:59 Last Admin: 04/24/22 08:40 Dose: 500 mg Pantoprazole Sodium (Pantoprazole 40 Mg Tab) 40 mg PO QAM [facility] Stop: 05/23/22 08:59 Last Admin: 04/24/22 08:40 Dose: 40 mg Saccharomyces Boulardii (Saccharomyces Boulardii 250 Mg Cap) 250 mg PO DAILY [facility] Stop: 05/23/22 08:59 Last Admin: 04/24/22 08:40 Dose: 250 mg
[2022-04-24 15:38] LABS: Creatinine Ur 97 mg/dL (20-275); Protein, Urine Random 674 mg/dL (5-24); Ur Protein/Creat Ratio mg/g 6948 mg/g creat (21-161); Urine Abnormal Protein Band 1 524 mg/dL (NONE DETECTED); Urine Abnormal Protein Band 2 DNR mg/dL (NONE DETECTED); Urine Abnormal Protein Band 3 DNR mg/dL (NONE DETECTED); Urine Protein/Creatinine Ratio 6.948 (0.021-0.161)
[2022-04-24 16:06] LABS: BUN Creatinine Ratio 10.4 (10-20); Calcium 9.2 mg/dl (8.5-10.1); Creatinine Clr Calc Pharmacy 13.3 ml/min; Est GFR (African American) 16.6 ml/min; Est GFR (Non-African American) 14.3 ml/min
[2022-04-24] MEDS: ATORVASTATIN 10 MG TAB PO SCH (20:06)
[2022-04-25] MEDS: POTASSIUM CHLORIDE 40 MEQ in NORMOSOL-R 1,000 ML IV SCH ×2 (04:27→12:57)
[2022-04-25 07:40] LABS: Hematocrit (blood only) 20.6 % (34.1-44.9); Mean Corpuscular Hemoglobin 31.8 pg (25.0-34.0); Mean Corpuscular Volume 93.6 fL (80.0-100.0); Mean Platelet Volume 10.1 fL (9.4-12.3); Platelet Count 173 K/uL (130-400); RDW Coefficient of Variation 13.6 % (11.5-14.5); RDW Standard Deviation 45.7 fL (36.4-46.3); White Blood Count 10.35 K/ul (4.8-10.8)
[2022-04-25 08:33] LABS: Albumin Globulin Ratio 1.4 (0.9-2); Albumin Level 3.3 gm/dl (3.4-5.0); BUN Creatinine Ratio 10.2 (10-20); Bilirubin,Total 0.6 mg/dl (0.2-1.0); Creatinine Clr Calc Pharmacy 14.5 ml/min; Est GFR (African American) 17.6 ml/min; Est GFR (Non-African American) 15.2 ml/min; Globulin 2.3 gm/dl (2.5-4.0); Potassium 4.8 mmol/L (3.5-5.1); Total Protein 5.6 gm/dl (6.0-8.3)
[2022-04-25] MEDS: PANTOprazole 40 MG TAB PO SCH (09:54)
[2022-04-25] MEDS: SACCHAROMYCES BOULARDII 250 MG CAP PO SCH (09:54)
[2022-04-25] MEDS: metroNIDAZOLE 500 MG TAB PO SCH ×2 (09:54→20:47)
[2022-04-25] MEDS: ANASTROZOLE 1 MG TAB PO SCH (09:54)
[2022-04-25] MEDS: DICLOFENAC SOD 1% GEL 100 GM TUBE EXT SCH ×2 (09:54→20:46)
[2022-04-25] MEDS: HEPARIN SOD 5,000 UNIT/0.5 ML VIAL SQ SCH ×2 (09:54→20:47)
[2022-04-25] MEDS ORDERED: SODIUM CHLORIDE 0.9% 250 ML IV PRN (11:20)
--- NOTE | 2022-04-25 11:26 | Nephrology Progress Note ---
Date of Service April 25, 2022 Assessment & Plan Admission and Anticipated Discharge Date Admission Date: April 20, 2022 Subjective S--some depression issues. Seen By Psych yesterday Making urine. Labs getting better. PHYSICAL EXAMINATION: GENERAL: Elderly white female who appears to be thin and frail. She is not in any overt respiratory distress. She is awake, alert and oriented. HEENT: Mucous membrane is moist. NECK: Supple. No jugular venous distention. CHEST: Bilateral decreased breath sound at the bases. CVS: S1 and S2, regular. ABDOMEN: Soft, nontender. EXTREMITIES: Show no edema. She does have tenderness in the multiple spots in the spine. LABORATORY TEST: Creat 2.9 today. Ca normal. . PTH is suppressed at 9.4. Potassium was low at 3.0 on admission. Chest x-ray, abdominal pelvis CT, head CT was reviewed. CT head does not show any obvious lesion, but CT abdomen and pelvis shows numerous osteopenia and lytic foci all over the area. ASSESSMENT AND PLAN: A 72-year-old female who presented to the hospital with progressive weakness, weight loss, back pain of few weeks' duration and was found to have possible multiple myeloma with associated acute renal failure and hypercalcemia. I have been consulted for management of hypercalcemia and acute renal failure. 1. Hypercalcemia: This is improving nicely. Calcium was 15.8 and now it is normal. most likely diagnosis of multiple myeloma. Myeloma tests already ordered and is pending 2. Acute renal failure: There might be some prerenal component, but I believe predominantly it is related with multiple myeloma as well as critically high calcium. Creat coming down quite slowly but at least coming down. wants to go home but would like to see little bit better before discharge. however this is not critical. 3. Pending Hematology/Oncology input. will continue to follow the patient, both as an inpatient as well as outpatient. Results & Data ([facility]) Vital Signs (Past 12 Hours) Vital Signs Temp Pulse Resp BP Pulse Ox O2 Del Method 04/25/22 08:15 37.0 C 106 H 16 149/78 H 93 Room Air 04/25/22 03:00 36.9 C 91 H 16 125/77 94 04/24/22 23:56 37.2 C 89 18 116/67 92
--- NOTE | 2022-04-25 12:47 | Hospitalist Progress Note ---
Date of Service April 25, 2022 Assessment & Plan (1) Hypercalcemia: Plan: -CT of the abdomen pelvis did show osteopenia with innumerable lytic foci suggestive of multiple myeloma -s/p Calcitonin x 4 doses. s/p Zomeda -continue IVF per Nephrology -SPEP shows M spike, UPEP pending. Discussed with patient and her family, she will need to follow up with her oncologist (sees [facility] group) for further outpatient workup including bone marrow biopsy and to discuss treatment options. (2) FAUSTO (acute kidney injury): Plan: Baseline creatinine appears to be around 0.6. On admission Cr is 3.95--> impr oving slowly -Appreciate Nephrology input (3) Anemia: Plan: Hgb in December was ~13. Pt denies overt blood loss that she can recall. - Iron studies, B12, folate normal - Heme check stools - most recent screening colonoscopy was in 2018 and was negative -Hb 7 again today, patient consented and 1 unit pRBC ordered (4) Hypokalemia: Plan: - Replete PRN (5) Hypertension: Plan: holding lisinopril/HCTZ for now (6) History of breast cancer: Plan: -patient follows with [facility] (7) High cholesterol: Plan Abnormal UA Bacterial vaginosis, asymptomatic -patient with no UTI symptoms and no vaginal discharge. Urine Culture +gardnerella like bacteria. Continue flagyl for 7 day course Code Status: DNR/DNI - pt does not have a living will/POA but states that her son and daughter would make decisions if she couldn't DVT Prophylaxis: SubQ heparin Disposition: Evaluated by PT and OT 04/23, patient did well. Would recommend return home with home care services when she is medically stable. Family (daughter and son-in-law) were updated on care plan and all questions were answered--04/23 Discharge to home once cleared by Nephrology Admission and Anticipated Discharge Date Admission Date: April 20, 2022 Subjective Appetite has improved with Marinol Regular Bowel movement Still feels weak but hopeful to be going home soon Physical Exam Physical Exam: No acute distress, non toxic, pleasant and comfortable Respiratory: breathing comfortably on room air, no wheezing/rhonchi/rales Cardiovascular: regular rate and rhythm, no murmurs/rubs/gallops Gastrointestinal (Abdomen): soft, non tender, non distended Musculoskeletal: No edema, no cyanosis Neurologic: awake, alert Psychiatric: appears brighter today, affect less flat, more hopeful Results & Data Results & Data ([facility]) Vital Signs (Past 12 Hours) Vital Signs Temp Pulse Resp BP Pulse Ox O2 Del Method 04/25/22 11:53 36.7 C 98 H 22 135/81 96 Room Air 04/25/22 08:15 37.0 C 106 H 16 149/78 H 93 Room Air 04/25/22 03:00 36.9 C 91 H 16 125/77 94 Laboratory Results Short CBC 04/25/22 Range/Units 07:20 WBC 10.35 (4.8-10.8) K/ul Hgb 7.0 L (12.0-16.0) g/dl Hct 20.6 L* (34.1-44.9) % Plt Count 173 (130-400) K/uL BMP 04/24/22 04/25/22 15:20 07:20 Sodium 138 138 Potassium 4.0 D 4.8 Chloride 105 109 H Carbon Dioxide 24 24 BUN 32 H 30 H Creatinine 3.08 H 2.93 H Glucose 117 H 87 Calcium 9.2 9.0 Liver Function 04/25/22 Range/Units 07:20 Total Bilirubin 0.6 (0.2-1.0) mg/dl AST 20 (13-39) U/L ALT 13 (7-52) U/L Alkaline Phosphatase 53 (34-104) U/L Albumin 3.3 L (3.4-5.0) gm/dl Medications Administered Current Inpatient Medications Acetaminophen (Acetaminophen 325 Mg Tab) 650 mg PO Q4H PRN PRN Reason: Pain or Fever Stop: 05/20/22 15:09 Anastrozole (Anastrozole 1 Mg Tab) 1 mg PO DAILY JEFE Stop: 05/21/22 08:59 Last Admin: 04/25/22 09:54 Dose: 1 mg Atorvastatin Calcium (Atorvastatin 10 Mg Tab) 10 mg PO HS JEFE Stop: 05/20/22 20:59 Last Admin: 04/24/22 20:06 Dose: 10 mg Diclofenac Sodium (Diclofenac Sod 1% Gel 100 Gm Tube) 2 gm EXT BID JEFE; Protocol Stop: 05/21/22 20:59 Last Admin: 04/25/22 09:54 Dose: 2 gm Dronabinol (Dronabinol 2.5 Mg Cap) 2.5 mg PO BID [facility] Stop: 05/23/22 20:59 Last Admin: 04/25/22 09:54 Dose: 2.5 mg Heparin Sodium (Porcine) (Heparin Sod 5,000 Unit/0.5 Ml Vial) 5,000 units SQ Q12 [facility] Stop: 05/20/22 20:59 Last Admin: 04/25/22 09:54 Dose: 5,000 units Potassium Chloride 40 meq/ (Parenteral Electrolytes) 1,020 mls @ 125 mls/hr IV .[id number] [facility] Stop: 05/24/22 09:59 Last Admin: 04/25/22 04:27 Dose: 125 mls/hr Sodium Chloride (Nss) 250 mls @ 15 mls/hr IV .[id number] PRN PRN Reason: For Transfusion Stop: 04/25/22 21:23 Metronidazole (Metronidazole 500 Mg Tab) 500 mg PO BID [facility]; Protocol Stop: 04/29/22 20:59 Last Admin: 04/25/22 09:54 Dose: 500 mg Pantoprazole Sodium (Pantoprazole 40 Mg Tab) 40 mg PO QAM [facility] Stop: 05/23/22 08:59 Last Admin: 04/25/22 09:54 Dose: 40 mg Saccharomyces Boulardii (Saccharomyces Boulardii 250 Mg Cap) 250 mg PO DAILY [facility] Stop: 05/23/22 08:59 Last Admin: 04/25/22 09:54 Dose: 250 mg
[2022-04-25] MEDS: ATORVASTATIN 10 MG TAB PO SCH (20:45)
[2022-04-25] MEDS: MELATONIN 3 MG TAB PO PRN (20:45)
[2022-04-26] MEDS: POTASSIUM CHLORIDE 40 MEQ in NORMOSOL-R 1,000 ML IV SCH ×2 (02:24→06:58)
[2022-04-26 07:08] LABS: BUN Creatinine Ratio 9.2 (10-20); Calcium 8.6 mg/dl (8.5-10.1); Creatinine Clr Calc Pharmacy 14.4 ml/min; Est GFR (African American) 17.5 ml/min; Est GFR (Non-African American) 15.1 ml/min; Potassium 5.3 mmol/L (3.5-5.1)
[2022-04-26 07:24] LABS: Albumin Globulin Ratio 1.4 (0.9-2); Albumin Level 3.3 gm/dl (3.4-5.0); Bilirubin,Total 0.7 mg/dl (0.2-1.0); Globulin 2.3 gm/dl (2.5-4.0); Magnesium 1.9 mg/dl (1.7-2.4); Phosphorus 1.3 mg/dl (2.5-4.9); Total Protein 5.6 gm/dl (6.0-8.3)
[2022-04-26 07:41] LABS: Hematocrit (blood only) 23.8 % (34.1-44.9); Mean Corpuscular Hemoglobin 30.2 pg (25.0-34.0); Mean Corpuscular Hgb Conc 33.6 g/dL (32.0-36.0); Mean Corpuscular Volume 89.8 fL (80.0-100.0); Mean Platelet Volume 11.4 fL (9.4-12.3); Platelet Count 169 K/uL (130-400); RDW Coefficient of Variation 17.2 % (11.5-14.5); RDW Standard Deviation 56.1 fL (36.4-46.3); Red Blood Count 2.65 M/uL (3.93-5.22)
[2022-04-26] MEDS ORDERED: SODIUM CHLORIDE 0.9% 1000ML 1,000 ML IV SCH (07:45)
[2022-04-26] MEDS: SACCHAROMYCES BOULARDII 250 MG CAP PO SCH (08:59)
[2022-04-26] MEDS: metroNIDAZOLE 500 MG TAB PO SCH ×2 (08:59→21:07)
[2022-04-26] MEDS: PANTOprazole 40 MG TAB PO SCH (08:59)
[2022-04-26] MEDS: ANASTROZOLE 1 MG TAB PO SCH (08:59)
[2022-04-26] MEDS: HEPARIN SOD 5,000 UNIT/0.5 ML VIAL SQ SCH ×2 (08:59→21:07)
[2022-04-26] MEDS ORDERED: POT PHOSPHATE MONOBASIC W/ SOD TAB PO SCH (09:00)
[2022-04-26] MEDS: DICLOFENAC SOD 1% GEL 100 GM TUBE EXT SCH ×2 (09:00→21:08)
--- NOTE | 2022-04-26 09:33 | XRay Report ---
SINGLE VIEW CHEST CLINICAL HISTORY: Dyspnea. FINDINGS: An AP, portable, upright chest radiograph is compared to study dated 04/21/2022. The heart i s enlarged. There is pulmonary vascular congestion with mild pulmonary edema. There are small pleural effusions with bibasilar consolidation. No pneumothorax is seen. The skeletal structures are osteope desean. The bony thorax is grossly intact. IMPRESSION: 1. Cardiomegaly with evidence of congestive failure. This is new from 04/21/2022. 2. Small pleural effusions with bibasilar consolidation. ACT 112: Negative or not required by law. Electronically signed by: Juan Escalona M.D. 04/26/2022 9:32 AM
[2022-04-26] MEDS ORDERED: FUROSEMIDE 40 MG/4 ML VIAL IV ONE ×2 (09:53→16:00)
[2022-04-26] MEDS ORDERED: SODIUM PHOSPHATE 3 MMOL/1 ML INFUSION IV STA (11:37)
--- NOTE | 2022-04-26 11:41 | Nephrology Progress Note ---
Date of Service April 26, 2022 Assessment & Plan Admission and Anticipated Discharge Date Admission Date: April 20, 2022 Subjective Subjective S--Desperate to go home. Some SOB and CXR shows CHF and got one dose of lasix . PHYSICAL EXAMINATION: GENERAL: Elderly white female who appears to be thin and frail. She is awake, alert and oriented. HEENT: Mucous membrane is moist. NECK: Supple. No jugular venous distention. CHEST: Bilateral decreased breath sound at the bases. CVS: S1 and S2, regular. ABDOMEN: Soft, nontender. EXTREMITIES: Show no edema. She does have tenderness in the multiple spots in the spine. LABORATORY TEST: Creat about same. CXR--CHF ASSESSMENT AND PLAN: A 72-year-old female who presented to the hospital with progressive weakness, weight loss, back pain of few weeks' duration and was found to have possible multiple myeloma with associated acute renal failure and hypercalcemia. I have been consulted for management of hypercalcemia and acute renal failure. 1. Hypercalcemia: This is improving nicely. Calcium was 15.8 and now it is normal. most likely diagnosis of multiple myeloma. Myeloma tests already ordered and is pending 2. Acute renal failure: There might be some prerenal component, but I believe predominantly it is related with multiple myeloma as well as critically high calcium. Creat coming down quite slowly but at least coming down. wants to go home but would like to see little bit better before discharge. however this is not critical. 3 CHF---s/p one dose of lasix earlier. Results & Data ([facility]) Vital Signs (Past 12 Hours) Vital Signs Temp Pulse Pulse Resp BP Pulse Ox O2 Del Method 04/26/22 07:30 Room Air 04/26/22 07:40 36.8 C 108 H 19 125/69 93 Room Air 04/26/22 07:31 108 H 04/26/22 03:38 37.4 C 109 H 18 117/68 91 Room Air
[2022-04-26] MEDS ORDERED: SODIUM PHOSPHATE 15 MMOL in SODIUM CHLORIDE 0.9% 250 ML IV ONE (12:00)
--- NOTE | 2022-04-26 13:19 | Hospitalist Progress Note ---
Date of Service April 26, 2022 Assessment & Plan (1) Hypercalcemia: Plan: -CT of the abdomen pelvis did show osteopenia with innumerable lytic foci suggestive of multiple myeloma -s/p Calcitonin x 4 doses. s/p Zomeda -continue IVF per Nephrology -SPEP shows M spike, UPEP pending. Discussed with patient and her family, she will need to follow up with her oncologist (sees [facility] group) for further outpatient workup including bone marrow biopsy and to discuss treatment options. (2) FAUSTO (acute kidney injury): Plan: Baseline creatinine appears to be around 0.6. On admission Cr is 3.95-->2.9 c urrently appears to have plateaued -d/c further IVF -Appreciate Nephrology input (3) Anemia: Plan: Hgb in December was ~13. Pt denies overt blood loss that she can recall. - Iron studies, B12, folate normal - Heme check stools - most recent screening colonoscopy was in 2017 and was negative -s/p 1 unit packed RBC 04/25 (4) Hypokalemia: Plan: - Replete PRN (5) Hypertension: Plan: holding lisinopril/HCTZ (6) History of breast cancer: Plan: -patient follows with [facility] (7) High cholesterol: Plan Abnormal UA Bacterial vaginosis, asymptomatic -patient with no UTI symptoms and no vaginal discharge. Urine Culture +gardnerella like bacteria. Continue flagyl for 7 day course Shortness of breath -has received IVF x 1 week and yesterday received 1 unit pRBC. CXR shows volume overload. Lasix 40mg IV once ordered this morning, will give another dose this afternoon Code Status: DNR/DNI - pt does not have a living will/POA but states that her son and daughter would make decisions if she couldn't DVT Prophylaxis: SubQ heparin Disposition: Evaluated by PT and OT 04/23, patient did well. Would recommend return home with home care services when she is medically stable. Likely discharge tomorrow Family (daughter and son-in-law) were updated on care plan and all questions were answered--04/23 Admission and Anticipated Discharge Date Admission Date: April 20, 2022 Subjective Feels short of breath today Appetite for past 2 days have improved after the start of Marinol, appetite this morning is diminished Having bowel movements Physical Exam Physical Exam: Appears thin, generalized weakness, but no acute distress/non toxic Respiratory: Diminished at bases, no wheezing/rhonchi/rales Cardiovascular: Mildly tachycardic but regular, no murmurs/rubs/gallops Gastrointestinal (Abdomen): soft, non tender, non distended Musculoskeletal: No edema Neurologic: awake, alert, spontaneously moving extremities Results & Data Results & Data ([facility]) Vital Signs (Past 12 Hours) Vital Signs Temp Pulse Pulse Resp BP Pulse Ox O2 Del Method 04/26/22 11:23 36.7 C 102 H 20 124/77 97 Room Air 04/26/22 07:30 Room Air 04/26/22 07:40 36.8 C 108 H 19 125/69 93 Room Air 04/26/22 07:31 108 H 04/26/22 03:38 37.4 C 109 H 18 117/68 91 Room Air
[2022-04-26] MEDS: ATORVASTATIN 10 MG TAB PO SCH (21:07)
[2022-04-26] MEDS: MELATONIN 3 MG TAB PO PRN (21:11)
[2022-04-27 06:32] LABS: Hematocrit (blood only) 23.8 % (34.1-44.9); Hemoglobin 7.9 g/dl (12.0-16.0); Mean Corpuscular Hemoglobin 30.2 pg (25.0-34.0); Mean Corpuscular Hgb Conc 33.2 g/dL (32.0-36.0); Mean Corpuscular Volume 90.8 fL (80.0-100.0); Mean Platelet Volume 10.3 fL (9.4-12.3); Platelet Count 183 K/uL (130-400); RDW Coefficient of Variation 17.3 % (11.5-14.5); RDW Standard Deviation 57.2 fL (36.4-46.3); Red Blood Count 2.62 M/uL (3.93-5.22)
[2022-04-27 06:56] LABS: BUN Creatinine Ratio 8.3 (10-20); Calcium 8.2 mg/dl (8.5-10.1); Creatinine Clr Calc Pharmacy 12.5 ml/min; Est GFR (African American) 14.8 ml/min; Est GFR (Non-African American) 12.8 ml/min; Magnesium 1.8 mg/dl (1.7-2.4); Phosphorus 2.5 mg/dl (2.5-4.9); Potassium 4.3 mmol/L (3.5-5.1)
[2022-04-27] MEDS: ANASTROZOLE 1 MG TAB PO SCH (09:03)
[2022-04-27] MEDS: SACCHAROMYCES BOULARDII 250 MG CAP PO SCH (09:03)
[2022-04-27] MEDS: PANTOprazole 40 MG TAB PO SCH (09:03)
[2022-04-27] MEDS: DICLOFENAC SOD 1% GEL 100 GM TUBE EXT SCH (09:03)
[2022-04-27] MEDS: HEPARIN SOD 5,000 UNIT/0.5 ML VIAL SQ SCH (09:03)
[2022-04-27] MEDS: metroNIDAZOLE 500 MG TAB PO SCH (09:03)
--- NOTE | 2022-04-27 10:07 | Discharge Summary ---
Date of Service April 27, 2022 Admission HPI Per Admitting Provider This is a 72 y/o female with a PMH of HTN, dyslipidemia, Breast Cancer s/p mastectomy and chemotherapy, on chronic Arimidex, and prediabetes (A1c in December was 6.1) who presents to the ED today with progressive weakness, increasing back pain, and issues with memory. History is obtained from both patient and her son who is at the bedside since the patient is having issues with memory affecting her ability to give the history. Pt started with a loss of appetite several months ago which has gradually worsened. Over the past few days, she reports barely eating anything and liquid intake has also been limited. She denies significant nausea or vomiting but has had some non-specific abdominal discomfort. She reports unintentional weight loss over the last several months but cannot quantify it - review of her outpatient records shows approximately 15 lb weight loss since last summer. She has also had mid to lower back pain over the last several weeks - seen in the ED for same complaint last month. Found to have compression fractures on imaging. Has been using Lidocaine patches for pain which have only been partially helpful. Pain has also been worse over the last few days. Her family has also noticed an increase in generalized weakness and loss of balance although both patient and her family deny any recent falls. She has had trouble with her memory, even with basic concepts and events, and describes feeling like she is "in a fog" today. This has also worsened over the last couple of days. Her son recently purchased a cane for the patient because of these issues but she did not previously use anything to assist with ambulation. She lives alone but has family just up the road to help when needed. Last oncology appt in December with [facility] - was doing well. Last mammo was negative in May 2021. Last DEXA in December 2020 was low to moderate fracture risk, no specific pharm therapy recommended. Principal Diagnosis Hypercalcemia Acute kidney Injury Hypokalemia Hypophosphatemia Hypomagnesemia Severe protein malnutrition Acute Normocytic Anemia Asymptomatic Bacterial Vaginosis Discharge Exam Patient feels much better. Shortness of breath resolved. Appetite is good. She is looking forward to going home On exam appears brighter, stronger. Still very thin and cachetic. Breathing comfortably on room air. Regular rate and rhythm. No lower extremity swelling Discharge Data Allergies Allergy/AdvReac Type Severity Reaction Status Date / Time No Known Allergies Allergy Unknown Verified 03/18/22 15:24 Consultations 04/20/22 11:36 ED Decision to Admit Stat 04/20/22 12:55 Consult Nephrology Routine 04/23/22 16:15 Consult Psychiatry Routine Ordered Studies 04/20/22 09:00 CT abd pelvis wo con Stat CT head/brain wo con Stat Hospital Course (1) Hypercalcemia: (2) FAUSTO (acute kidney injury): (3) Anemia: (4) Hypokalemia: - Replete PRN (5) Hypertension: (6) History of breast cancer: (7) High cholesterol: Plan Ms Shadia Johnson is a 72 year old female with history of breast cancer on anastrozole, hypertension, hyperlipidemia and remaining PMHx as above in HPI presented to the ER 04/20 for back pain, weakness and memory impairment. Upon presentation, she was noted to have very elevated calcium level (15.8), acute renal failure (Cr 3.95 on admission, baseline 0.6), acute normocytic anemia (Hb 8.8 on admission, baseline 13). She had a CT A/P without contrast which showed multiple lytic lesions (report as below). The constellation of her symptoms were concerning for multiple myeloma and a SPEP and UPEP were sent which did show an M spike. She sees [facility] for her breast cancer and was instructed to follow up with her Oncologist for bone marrow biopsy and further evaluation after discharge. While here, she was managed for hypercalcemia, FAUSTO and anemia. She received parenteral fluids and calcitonin x 4 doses and Zomeda x 1 dose. With intervention her calcium levels normalized at the time of discharge. She was making adequate urine but unfortunately did not have significant renal function recovery (Cr 3.95--> scot 2.9--> 3.3 at discharge). She did receive 1 unit packed RBC on 04/25 for continued anemia and weakness with appropriate response. However, after the blood transfusion and several days of continuous IVF, she did develop shortness of breath 04/26. Chest X ray showed volume overload and she received lasix 40mg IV x 2 doses with resolution of her SOB. She was evaluated by PT and recommended home with home PT. She has strong family support and is happy to return home. While here, she was noted to also have significant weight loss recently and to have severe protein malnutrition with poor appetite. She was started on Marinol with marked improvement in her appetite. Her family also expressed concern that she may be depressed and requested psychiatry consultation. She was evaluated by psychiatry and felt her symptoms were situational related (being sick and in the hospital) and did not require medications currently. She should follow up with her PCP to monitor ongoing response to Marinol and to decide if she needs referral to see psychiatry as an outpatient. On the day of discharge, she felt well. CT A/P without contrast IMPRESSION: 1. Osteopenia with innumerable lytic foci which may represent multiple myeloma, metastases of breast cancer, or severe osteopenia. There are compression deformities of T11 and L1, and possible nondisplaced fracture of T10, of unknown chronicity, correlation with point tenderness is recommended. Otherwise, no acute abnormality is seen, in particular no evidence of hydronephrosis or nephrolithiasis. 2. Bladder wall thickening, correlation with urinalysis for UTI is recommended. Home Health Attestation I certify that this patient is under my care and that I, or a physicians events and promotions assistant working with me, had a face to-face encounter that meets the home health [id number] encounter requirements with this patient. The encounter with the patient was in whole, or in part, for the following medical condition, which is the primary reason for home health care (list medical condition): I certify that, based on my findings, the following services are medically necessary home health services: My clinical findings support the need for the above services because: Further, I certify that my clinical findings support that this patient is homebound (i.e. absences from home require considerable and taxing effort and are for medical reasons or sabianism services or infrequently or of short duration when for other reasons) because: Certification for Home Health Services: Based on the above findings, I certify that this patient is confined to the home and needs intermittent fpc care, physical therapy and/or speech therapy or continues to need occupational therapy. The patient is under my care, and I have initiated the establishment of the plan of care. This patient will be followed by a physician who will periodically review the plan of care. Total Time Total Time Spent Total Time Spent (In Minutes): 40 Discharge Plan Discharge Items Patient Disposition: Home - Home Health Services Reason For Visit: HYPERCALCEMIA,BACK PAIN Discharge Diagnosis: Hypercalcemia Acute kidney Injury Hypokalemia Hypophosphatemia Hypomagnesemia Severe protein malnutrition Normocytic Anemia Asymptomatic Bacterial Vaginosis Condition on Discharge: Fair Activity: Resume your previous activity Non-emergency contact: Primary Care Provider, Customer Success Representative and Oncologist Call non-emergency contact if: you have any medication questions Follow-up/Referrals: Amelia Tucker, [Primary Care Provider] - (Date & Time 04/30/2022 12:20 PM Provider Regine Castro PA-C Department [facility] ) Cornel Joe MD [Surgeon] - Diet: Regular Addtl Attending Provider Instructions: You were admitted for elevated calcium levels, anemia and acute renal failure You had work up which is concerning for Multiple Myeloma. Please follow up with your Oncologist after discharge for bone marrow biopsy and further workup You were managed for dehydration, elevated calcium levels and electrolyte abnormalities in the hospital You also received 1 unit RBC blood transfusion 04/25 with good response Please follow up with your Primary Care Physician in 1 week for repeat CBC and BMP Please follow up with Nephrology (kidney doctor) in 2-4 weeks to monitor your kidney function Pending Studies at Discharge: Yes Stand-Alone Forms: My [facility] [employer], Smoking Cessation Medications and DC Order Prescriptions: New metronidazole 500 mg Tablet 500 mg PO BID 2 Days Qty: 4 0RF dronabinol 2.5 mg Capsule 2.5 mg PO BID 14 Days Qty: 28 0RF pantoprazole 40 mg Tablet,Delayed Release (Dr/Ec) 40 mg PO QAM 7 Days Qty: 7 0RF Saccharomyces boulardii [Florastor] 250 mg Capsule 250 mg PO DAILY 7 Days Qty: 7 0RF Continued anastrozole 1 mg tablet 1 mg PO DAILY atorvastatin 10 mg tablet 10 mg PO HS Discontinued lisinopril-hydrochlorothiazide 20-12.5 mg tablet 0.5 tab PO DAILY calcium carbonate-vitamin D3 [Calcium 600 + D(3)] 600 mg-10 mcg (400 unit) Tablet 1 tab PO BID Discharge Orders: Discharge Order (Routine); Ordered 04/27/22 Ordered By: Ignacio Orr Admission Data Admit Date/Time: 04/20/22 12:42 Attending Provider: Ignacio Orr Admit Provider: Koen Fischer Primary Care Provider: Amelia Tucker Other Providers: Keon Fischer ; Cornel Joe ; Howard Mi ; Mckenzie Valdez ; Lisa Carrasquillo ; Jessi Pichardo
--- NOTE | 2022-04-27 10:31 | Nephrology Progress Note ---
Date of Service April 27, 2022 Assessment & Plan (1) FAUSTO (acute kidney injury): Plan: after diuretics worse today Stage 3 FAUSTO of unclear/possibly multiple etiologies given potential for dx of MM >> spep with restricted band/M spike in gamma globulin region and in beta 2 microglobulin region baseline creatinine 0.6 as recently as December 2021; admitted w/ creatinine 4 on 04/20; creatinine 3.4 today at day of d/c -daily bmp while in house NEPHRO DISCHARGE RECS -agree w/ holding hctz/lisinopril -bmp q Mon/Thurs after discharge to be ordered by nephro RN -advised pt and family to avoid nsaids -needs hospital d/c appt with nephrology within 7 days of hospital d/c > could be seen at clinic closest to her home including [place] depending on pt preference and provider availability -did d/w pt and daughter that she may well need renal biopsy and that will be in touch w/ them on this - goal is to avoid both renal and bm bx if possible (2) Hypercalcemia: Plan: improving hypercalcemia of malignancy w/ findings concerning for MM or metastatic CA (pt w/hx breast CA) admitted w/ Ca 15.8, improved with calcitonin, IVF, zometa to 8.2 today -f/u as above Admission and Anticipated Discharge Date Admission Date: April 20, 2022 Subjective pt seen w/ daughter at bedside midday. tells me she struggles to drink 500 mL daily; sees Dr Hidalgo on 05/06 Review of Systems Review of Systems: All systems reviewed & are unremarkable except as noted in Subjective Physical Exam Constitutional: well developed, well nourished, + frail appearing and cooperative; no acute distress Eyes: EOM intact bilaterally ENMT: Ears: no external ear abnormality Nose: no external nose abnormality Mouth: + dry oral mucous membranes Neck: no nuchal rigidity Respiratory: normal respiratory effort Auscultation: + diminished lung sounds Cardiovascular: Rate/Rhythm: regular rhythm and + tachycardic (in 90s) Extremities: no edema Gastrointestinal (Abdomen): Inspection/Auscultation: normal bowel sounds Percussion/Palpation: abdomen soft; abdomen nontender Musculoskeletal: Extremities: strength 5/5 throughout Skin: no rashes, warm and dry Neurologic: generalized weakness, no tremor, fluent speech Psychiatric: Orientation: oriented x 3 Results & Data ([facility]) Vital Signs (Past 12 Hours) Vital Signs Temp Pulse Pulse Resp BP Pulse Ox O2 Del Method 04/27/22 08:00 Room Air 04/27/22 07:22 104 H 04/27/22 07:05 36.9 C 92 H 19 128/73 94 Room Air 04/27/22 03:00 36.8 C 98 H 16 101/61 92 04/26/22 23:00 36.9 C 100 H 16 117/69 96 Laboratory Results 04/27/22 06:21 04/27/22 06:21
== END 2022-04-27 14:45 | disposition home health service (06) | DRG 840 ==
LOC: ED 08:32 → SUATTDRO 12:42 → 2S 12:42

== ENCOUNTER 2022-05-23 14:47 | Inpatient (IN) ==
[2022-05-23 15:40] LABS: Basophils # (auto) 0.04 K/uL (0-0.2); Basophils % (auto) 0.6 %; Eosinophils # (auto) 0.07 K/uL (0-0.50); Eosinophils % (auto) 1.1 %; Hematocrit (blood only) 26.9 % (34.1-44.9); Hemoglobin 8.8 g/dl (12.0-16.0); Immature Granulocytes # (auto) 0.09 K/uL (0.00-0.02); Immature Granulocytes % (auto) 1.4 %; Lymphocytes # (auto) 1.22 K/uL (1.2-3.4); Lymphocytes % (auto) 18.7 %; Mean Corpuscular Hemoglobin 30.8 pg (25.0-34.0); Mean Corpuscular Hgb Conc 32.7 g/dL (32.0-36.0); Mean Corpuscular Volume 94.1 fL (80.0-100.0); Mean Platelet Volume 9.5 fL (9.4-12.3); Monocytes # (auto) 0.91 K/uL (0.24-0.82); Neutrophils # (auto) 4.19 K/uL (1.4-6.5); Neutrophils % (auto) 64.2 %; Platelet Count 228 K/uL (130-400); RDW Coefficient of Variation 17.5 % (11.5-14.5); RDW Standard Deviation 60.6 fL (36.4-46.3); Red Blood Count 2.86 M/uL (3.93-5.22); White Blood Count 6.52 K/ul (4.8-10.8)
[2022-05-23] MEDS ORDERED: SODIUM CHLORIDE 0.9% 1000ML 1,000 ML IV ONE (15:50)
[2022-05-23] MEDS ORDERED: ONDANSETRON INJ 2 MG/ML 2 ML VIAL IV STA (15:50)
--- NOTE | 2022-05-23 15:50 | Emergency Department Note ---
Impression & Plan FAUSTO (acute kidney injury), Vomiting, Nausea ED Provider Note NAME: LEATHA RODRIGUEZ AGE: 72 SEX: F : 1950 ARRIVES VIA: Walk-In INFORMANT: Patient ED PROVIDER(S): Jayjay Perez DO CHIEF COMPLAINT: abdominal pain and nausea and vomiting HPI: Patient is a 72-year-old female presents the ER for nausea and vomiting. She notes that this started this past Wednesday. She has a recent admission for hypercalcemia and renal failure with concern for multiple myeloma that has not been completely worked up at this point. She notes in the morning she gets sick to her stomach and will vomit. This is generally with sweet things. Following this she feels as though she can eat or drink. She denies any dysuria urgency or frequency. No headache or change in vision. She does have some left-sided belly pain which has been present for the past 6 weeks. Pain is constant and achy. No other exacerbating or remitting factors. She admits to a prescription for Zofran which she infrequently uses but when she does it does work. ROS: See above HPI for pertinent positives & negatives. A total of 10 systems reviewed and were otherwise negative. PAST MEDICAL HISTORY:See Below PAST SURGICAL HISTORY:See Below FAMILY HISTORY:See Below SOCIAL HISTORY:See Below HOME MEDICATIONS:See Below ALLERGIES:See Below VITALS:See Below PHYSICAL EXAMINATION: GENERAL: Sitting up in bed, alert, chronically ill-appearing, cachectic, disheveled EYE EXAM: normal conjunctiva. OROPHARYNX: no exudate, no erythema, lips, buccal mucosa, and tongue normal and mucous membranes are moist NECK: supple, no nuchal rigidity, no adenopathy, non-tender LUNGS: Clear to auscultation. Normal chest wall mechanics HEART: no murmurs, S1 normal and S2 normal ABDOMEN: abdomen soft, non-tender, normo-active bowel sounds, no masses, no rebound or guarding. UPPER EXTREMITIES: upper extremities are grossly normal. LOWER EXTREMITIES: No pitting edema. NEURO EXAM: Normal sensorium, cranial nerves II-XII grossly intact, normal speech, no gross weakness of arms, no gross weakness of legs. MEDICAL DECISION MAKING: Patient is a 72-year-old female who presents ER for the above-stated complaint. IV was established blood was obtained. Labs show no significant leukocytosis. Mild anemia at 8.8. BMP with a creatinine 3.97 up from a baseline of about 3. LFTs bilirubin was unremarkable. Lipase was normal. COVID was negative. Patient was given IV fluids. CT abdomen pelvis was unremarkable. He was also given Zofran for the nausea and vomiting. She was updated bedside. Discussed with hospitalist for further evaluation. Triage Nursing notes reviewed. Limited review of prior medical records performed Vital Signs: reviewed and remarkable for tachy Differential diagnosis: Differential diagnoses includes but is not limited to gastritis, peptic ulcer disease, GERD, gallbladder disease, pancreatitis, small bowel obstruction, acute coronary syndrome, pericarditis, ischemic bowel, irritable bowel disease, irritable bowel syndrome, appendicitis, diverticulitis, malignancy, hernia, urinary tract infection, torsion, perforation, trauma, infectious. ER treatment provided: See below Diagnostics interpreted by me: ECG: none Cardiac Monitoring: An order was placed for continuous cardiac monitoring. The monitor shows a rate of 92 with sinus rhythm. Laboratory studies: As stated above and show below. Imaging studies: CT abdomen pelvis was unremarkable Consultation(s): none Procedures: none Critical Care: None Past Med/Surg History Medical History Breast cancer High cholesterol Hypertension Surgical History History of partial mastectomy of left breast Family History Brother Cancer Pancreatic Sister Cancer Lymphoma Family/Other Cancer Niece with breast cancer at age 40 (mother had lymphoma) Uncle Cancer Brain Mother Diabetes Father Heart disease Social History Smoking Status: Never smoker Hx Alcohol Use: No Hx Substance Use: No Preferred Language: Swiss Communication Ability: Effective Lapidary Apprentice Required: No Beliefs That Will Affect Care: None Current Living Situation: Alone Feels Safe at Home: Yes Assistive Devices: Cane Allergies Allergies Allergy/AdvReac Type Severity Reaction Status Date / Time No Known Allergies Allergy Unknown Verified 05/23/22 17:55 Home Meds Home Medications Medication Instructions Recorded Confirmed anastrozole 1 mg tablet 1 mg PO DAILY 03/18/22 05/23/22 atorvastatin 10 mg tablet 10 mg PO QAM 03/18/22 05/23/22 dronabinol 2.5 mg capsule 2.5 mg PO AMHS 05/23/22 05/23/22 ondansetron HCl 4 mg tablet 4 mg PO Q6 PRN Nausea 05/23/22 05/23/22 oxycodone-acetaminophen 5 mg-325 1 tab PO Q6 PRN Pain, Moderate 05/23/22 05/23/22 mg tablet Results & Data (ED) Vital Signs Vital Signs - 24 hr 05/23/22 14:50 05/23/22 15:03 05/23/22 15:30 Temperature 36.4 C L Temperature Source Temporal Artery Scan Pulse Rate 84 97 H 92 H Pulse Rate from SpO2 Sensor Pulse Rhythm Regular Pulse Strength Normal Respiratory Rate 16 20 25 H Respiratory Effort / Characteristics Non-Labored Spontaneous Respiratory Depth Normal Blood Pressure 134/71 124/74 Blood Pressure Mean 92 90 Pulse Oximetry 97 98 97 Oxygen Delivery Method Room Air Sepsis Recent Fever Within 48 Hours No Sepsis New/Unexplained Change in Mental Status No Sepsis Action Taken by Nursing No Action Required 05/23/22 16:00 05/23/22 16:00 05/23/22 16:13 Temperature Temperature Source Pulse Rate 92 H 90 Pulse Rate from SpO2 Sensor Pulse Rhythm Pulse Strength Respiratory Rate 25 H 24 Respiratory Effort / Characteristics Respiratory Depth Blood Pressure 133/79 Blood Pressure Mean 97 Pulse Oximetry 96 96 Oxygen Delivery Method Sepsis Recent Fever Within 48 Hours Sepsis New/Unexplained Change in Mental Status Sepsis Action Taken by Nursing 05/23/22 16:34 05/23/22 16:35 05/23/22 17:00 Temperature Temperature Source Pulse Rate 98 H Pulse Rate from SpO2 Sensor Pulse Rhythm Pulse Strength Respiratory Rate 19 Respiratory Effort / Characteristics Respiratory Depth Blood Pressure 141/81 H 128/77 Blood Pressure Mean 101 94 Pulse Oximetry 95 Oxygen Delivery Method Sepsis Recent Fever Within 48 Hours Sepsis New/Unexplained Change in Mental Status Sepsis Action Taken by Nursing 05/23/22 17:00 05/23/22 17:30 05/23/22 17:30 Temperature Temperature Source Pulse Rate 89 91 H Pulse Rate from SpO2 Sensor 89 92 H Pulse Rhythm Pulse Strength Respiratory Rate 22 19 Respiratory Effort / Characteristics Respiratory Depth Blood Pressure 133/74 Blood Pressure Mean 93 Pulse Oximetry 98 98 Oxygen Delivery Method Sepsis Recent Fever Within 48 Hours Sepsis New/Unexplained Change in Mental Status Sepsis Action Taken by Nursing 05/23/22 18:00 05/23/22 18:00 05/23/22 18:30 Temperature Temperature Source Pulse Rate 101 H 91 H Pulse Rate from SpO2 Sensor 96 H 91 H Pulse Rhythm Pulse Strength Respiratory Rate 28 H 20 Respiratory Effort / Characteristics Respiratory Depth Blood Pressure 137/83 129/78 Blood Pressure Mean 101 95 Pulse Oximetry 97 100 Oxygen Delivery Method Sepsis Recent Fever Within 48 Hours Sepsis New/Unexplained Change in Mental Status Sepsis Action Taken by Nursing 05/23/22 18:30 05/23/22 19:00 05/23/22 19:30 Temperature Temperature Source Pulse Rate 95 H 101 H Pulse Rate from SpO2 Sensor 95 H 100 H Pulse Rhythm Pulse Strength Respiratory Rate 22 24 Respiratory Effort / Characteristics Respiratory Depth Blood Pressure 133/94 135/77 139/87 Blood Pressure Mean 107 96 104 Pulse Oximetry 98 99 Oxygen Delivery Method Sepsis Recent Fever Within 48 Hours Sepsis New/Unexplained Change in Mental Status Sepsis Action Taken by Nursing 05/23/22 20:00 05/23/22 20:35 Temperature Temperature Source Pulse Rate 97 H Pulse Rate from SpO2 Sensor 97 H 93 H Pulse Rhythm Pulse Strength Respiratory Rate 21 Respiratory Effort / Characteristics Respiratory Depth Blood Pressure 136/83 Blood Pressure Mean 100 Pulse Oximetry 97 95 Oxygen Delivery Method Sepsis Recent Fever Within 48 Hours Sepsis New/Unexplained Change in Mental Status Sepsis Action Taken by Nursing Laboratory Data Result diagrams: 05/23/22 15:29 05/23/22 15:29 Lab Results 05/23/22 05/23/22 05/23/22 Range/Units 15:29 15:29 17:50 WBC 6.52 (4.8-10.8) K/ul RBC 2.86 L (3.93-5.22) M/uL Hgb 8.8 L (12.0-16.0) g/dl Hct 26.9 L (34.1-44.9) % MCV 94.1 (80.0-100.0) fL MCH 30.8 (25.0-34.0) pg MCHC 32.7 (32.0-36.0) g/dL RDW Std Deviation 60.6 H (36.4-46.3) fL RDW Coeff of [place] 17.5 H (11.5-14.5) % Plt Count 228 (130-400) K/uL MPV 9.5 (9.4-12.3) fL Immature Gran % (Auto) 1.4 % Neut % (Auto) 64.2 % Lymph % (Auto) 18.7 % [place] % (Auto) 14.0 % Eos % (Auto) 1.1 % Baso % (Auto) 0.6 % Neut # (Auto) 4.19 (1.4-6.5) K/uL Lymph # (Auto) 1.22 (1.2-3.4) K/uL [place] # (Auto) 0.91 H (0.24-0.82) K/uL Eos # (Auto) 0.07 (0-0.50) K/uL Baso # (Auto) 0.04 (0-0.2) K/uL Immature Gran # (Auto) 0.09 H (0.00-0.02) K/uL Sodium 136 (136-145) mmol/L Potassium 4.0 (3.5-5.1) mmol/L Chloride 104 (98-107) mmol/L Carbon Dioxide 21 (21-32) mmol/L Anion Gap 11 (3-11) BUN 27 H (6-23) mg/dl Creatinine 3.97 H (0.6-1.2) mg/dl Est Cr Clr Drug Dosing Not Reportable Est GFR ( Amer) 12.2 ml/min Est GFR (Non-Af Amer) 10.5 ml/min BUN/Creatinine Ratio 6.8 L (10-20) Glucose 96 (70-99(Fasting)) mg/dl Calcium 8.7 (8.5-10.1) mg/dl Total Bilirubin 1.0 (0.2-1.0) mg/dl AST 24 (13-39) U/L ALT 11 (7-52) U/L Alkaline Phosphatase 76 (34-104) U/L Total Protein 7.0 (6.0-8.3) gm/dl Albumin 4.1 (3.4-5.0) gm/dl Globulin 2.9 (2.5-4.0) gm/dl Albumin/Globulin Ratio 1.4 (0.9-2) Lipase 37 (11-82) U/L SARS-CoV-2, RNA, NAAT NEGATIVE (NEGATIVE) Administered Medications Discontinued Medications Sodium Chloride (Nss 1000ml) 1,000 mls @ 999 mls/hr IV .Q1H1M ONE Stop: 05/23/22 16:50 Last Infusion: 05/23/22 17:38 Dose: 0 mls/hr Documented By: Admin: 05/23/22 16:38 Dose: 999 mls/hr Documented By: AB Ondansetron HCl (Ondansetron Inj 2 Mg/Ml 2 Ml Vial) 4 mg IV NOW STA Stop: 05/23/22 15:51 Last Admin: 05/23/22 16:38 Dose: 4 mg Documented By: AB Imaging Data Radiologist's Impression: Abdomen/Pelvis CT 05/23/22 15:50 CT abd pelvis wo con CLINICAL HISTORY: llq abd pain TECHNIQUE: Helical axial images of the abdomen and pelvis were obtained. Automated dose lowering techniques and/or adjustment according to patient size were utilized for this exam. This exam was performed without intravenous contrast. CT DOSE: 211.96 mGycm COMPARISON: Comparison is made to CT abdomen pelvis 04/20/2022 FINDINGS: Lower chest: No acute abnormality Liver: Unremarkable. No focal lesions are seen. Gallbladder and biliary tree: Calcification versus antidependent stone is noted in the anterior aspect of the gallbladder. No intra- or extrahepatic biliary ductal dilation. Pancreas: Unremarkable, no focal lesions. Spleen: Unremarkable. Adrenals: Adrenal thickening is seen. Kidneys and ureters: Multiple renal cysts are seen on the right. Bladder: Diffuse homogeneous wall thickening is seen. Reproductive organs: Unremarkable. Bowel: Unremarkable. Lymph nodes Retroperitoneal: Unremarkable. Pelvic: Unremarkable. Mesenteric: Unremarkable. Peritoneum: Normal. Vessels: Unremarkable. Abdominal wall: Unremarkable. Bones: Numerous lytic lesions are seen. Loss of height of T11 and L1 are unchanged. Degenerative changes are seen. IMPRESSION: 1. No acute abnormalities, in particular no evidence of diverticulitis. 2. Osteopenia, lytic foci, and loss of height, unchanged from prior exam. 3. Bladder wall thickening, clinical correlation for UTI is recommended, although this may also represent chronic obstruction. ACT 112: Negative or not required by law. Electronically signed by: Edy Ramirez M.D. 05/23/2022 5:31 PM Discharge Plan Visit Data Chief Complaint: Abdominal Pain Stated Complaint: DEHYDRATION, NOT FEELING WELL FOR 2 DAYS ED Provider: Jayjay Perez Discharge Problem: FAUSTO (acute kidney injury), Vomiting, Nausea Forms Stand Alone Forms: [facility] [employer] Prescriptions Prescriptions: No Action anastrozole 1 mg tablet 1 mg PO DAILY atorvastatin 10 mg tablet 10 mg PO QAM ondansetron HCl 4 mg tablet 4 mg PO Q6 PRN (Reason: Nausea) dronabinol 2.5 mg capsule 2.5 mg PO AMHS oxycodone-acetaminophen 5-325 mg tablet 1 tab PO Q6 PRN (Reason: Pain, Moderate) Referrals Referrals: Amelia Tucker, [Primary Care Provider] -
[2022-05-23 16:01] LABS: Alanine Aminotransferase 11 U/L (7-52); Albumin Globulin Ratio 1.4 (0.9-2); Albumin Level 4.1 gm/dl (3.4-5.0); Alkaline Phosphatase 76 U/L (34-104); Anion Gap 11 (3-11); Aspartate Aminotransferase 24 U/L (13-39); BUN Creatinine Ratio 6.8 (10-20); Blood Urea Nitrogen 27 mg/dl (6-23); Calcium 8.7 mg/dl (8.5-10.1); Carbon Dioxide 21 mmol/L (21-32); Chloride 104 mmol/L (98-107); Est GFR (African American) 12.2 ml/min; Est GFR (Non-African American) 10.5 ml/min; Globulin 2.9 gm/dl (2.5-4.0); Glucose 96 mg/dl (70-99(Fasting)); Lipase 37 U/L (11-82); Sodium 136 mmol/L (136-145)
--- NOTE | 2022-05-23 17:33 | CT Scan Report ---
CT abd pelvis wo con CLINICAL HISTORY: llq abd pain TECHNIQUE: Helical axial images of the abdomen and pelvis were obtained. Automated dose lowering tech niques and/or adjustment according to patient size were utilized for this exam. This exam was perfor med without intravenous contrast. CT DOSE: 211.96 mGycm COMPARISON: Comparison is made to CT abdomen pelvis 04/20/2022 FINDINGS: Lower chest: No acute abnormality Liver: Unremarkable. No focal lesions are seen. Gallbladder and biliary tree: Calcification versus antidependent stone is noted in the anterior aspec t of the gallbladder. No intra- or extrahepatic biliary ductal dilation. Pancreas: Unremarkable, no focal lesions. Spleen: Unremarkable. Adrenals: Adrenal thickening is seen. Kidneys and ureters: Multiple renal cysts are seen on the right. Bladder: Diffuse homogeneous wall thickening is seen. Reproductive organs: Unremarkable. Bowel: Unremarkable. Lymph nodes Retroperitoneal: Unremarkable. Pelvic: Unremarkable. Mesenteric: Unremarkable. Peritoneum: Normal. Vessels: Unremarkable. Abdominal wall: Unremarkable. Bones: Numerous lytic lesions are seen. Loss of height of T11 and L1 are unchanged. Degenerative gibbons ges are seen. IMPRESSION: 1. No acute abnormalities, in particular no evidence of diverticulitis. 2. Osteopenia, lytic foci, and loss of height, unchanged from prior exam. 3. Bladder wall thickening, clinical correlation for UTI is recommended, although this may also repr esent chronic obstruction. ACT 112: Negative or not required by law. Electronically signed by: Edy Ramirez M.D. 05/23/2022 5:31 PM
--- NOTE | 2022-05-23 18:52 | History & Physical Report ---
Date of Service May 23, 2022 Assessment & Plan (1) Nausea & vomiting: Plan: Present on admission with nausea and vomiting associated with poor oral intake Possible related to medication like tramadol/percocet CT abd/pelvis showed No acute abnormalities, in particular no evidence of diverticulitis. Bladder wall thickening. received IVF, will continue gentle hydration Will start on clear liquid diet Continue antiemetic med with zofran Will monitor electrolytes FAUSTO on CKD concern for multiple myeloma Creatinine on admission 3.97 (creatinine on 12/12 was 3.0 and 12/19 was 3.8) Continue IVF Nephrology consult Avoid nephrology consult Schedule for bone james biopsy on Wednesday at [facility] Monitor BMP Anemia: Hgb 8.8 today, last hgb in April was 7.9 last colonoscopy was in 2017 and was negative stable (6) History of breast cancer Continue anastrozole schedule for PET scan on Wednesday Dyslipidemia Continue statin Code Status: DNR/DNI as per patient wishes (Son and daughter in-law at bedside agreed) DVT Prophylaxis: SubQ heparin History of Present Illness Chief Complaint: Nausea and vomiting associated with poor intake Primary Care Provider: Amelia Tucker, 72 y/o female with a PMH of HTN, dyslipidemia, Breast Cancer s/p mastectomy and chemotherapy, on chronic Arimidex, and prediabetes, recent admission in April for hypercalcemia and renal failure with concern for multiple myeloma who presents to the ED today nausea and vomiting started since Wednesday. Pt is a poor historian due to dementia. History obtained from patient, son and daughter in-law at the bedside. On Wednesday pt developed nausea/ vomiting associated with poor oral intake. Family noticed vomiting occurs after eating ( usually with the ensure as well as other food). Pt has not been able to eat or drink in the last few day. She was prescribed Zofran that provided some relief for a day then symptoms reoccurs again. This morning she had an episode of nonbloody diarrhea. She was schedule to have a bone marrow biopsy done on but due to the nausea and vomiting, she could not make it to get the study done. as per family Pt has been having abdominal discomfort for the last few weeks that did not relieve with tramadol. She recently prescribed Percocet that seems to help. Son said they brought her to the ER today to get her to evaluate to make sure she was not in renal failure. Son said that after her last admission discharge she had good appetite for a 1 to 2 weeks, then back to her routine where she does not want to eat due to her recent diagnosis of prediabetes. She continues to lose weight. Pt said that she feels alittle weak compare to her baseline. denies any chest pain, palpitation, dizziness and SOB. Allergies Allergy/AdvReac Type Severity Reaction Status Date / Time No Known Allergies Allergy Unknown Verified 05/23/22 17:55 Home Medications Medication Instructions Recorded Confirmed Type anastrozole 1 mg tablet 1 mg PO DAILY 03/18/22 05/23/22 History atorvastatin 10 mg tablet 10 mg PO QAM 03/18/22 05/23/22 History dronabinol 2.5 mg capsule 2.5 mg PO AMHS 05/23/22 05/23/22 History ondansetron HCl 4 mg tablet 4 mg PO Q6 PRN Nausea 05/23/22 05/23/22 History oxycodone-acetaminophen 5 mg-325 1 tab PO Q6 PRN Pain, Moderate 05/23/22 05/23/22 History mg tablet Past Med/Surg History Medical History (Updated 06/03/22 @ 07:39 by Keon Fischer MD) Breast cancer High cholesterol Hypercalcemia Hypertension Hypokalemia Surgical History History of partial mastectomy of left breast Family History Brother Cancer Pancreatic Sister Cancer Lymphoma Family/Other Cancer Niece with breast cancer at age 40 (mother had lymphoma) Uncle Cancer Brain Mother Diabetes Father Heart disease Social History Smoking Status: Never smoker Do You Dip or Chew Tobacco: No; Hx Alcohol Use: No Hx Substance Use: No Preferred Language: Kyrgyz Communication Ability: Effective Assistant Men'S Lacrosse 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 Required: No Beliefs That Will Affect Care: None Current Living Situation: Alone Other Information That Helps Us Care for You: No Feels Safe at Home: Yes Safety Concerns: Feels Safe At This Time Assistive Devices: Cane and Glasses Review of Systems Review of Systems: All systems reviewed & are unremarkable except as noted in Subjective Physical Exam Physical Exam: General- No acute distress Head- atraumatic Eyes- PERRL, EOMI, ENT- oropharynx clear Neck- supple, no JVD Lungs- clear to auscultation Heart- regular rhythm; no murmur Abdomen- normal bowel sounds, soft, +mild tenderness with deep palpation Extremities- no calf tenderness Neuro- alert, oriented x 3; PERRL, EOMI; no facial palsy; no dysarthria Skin- warm & dry Results & Data Results & Data ([facility]) Vital Signs (Past 12 Hours) Vital Signs Temp Pulse Resp BP Pulse Ox O2 Del Method 05/23/22 18:30 91 H 20 129/78 100 05/23/22 18:00 101 H 28 H 97 05/23/22 18:00 137/83 05/23/22 17:30 91 H 19 98 05/23/22 17:30 133/74 05/23/22 17:00 89 22 98 05/23/22 17:00 128/77 05/23/22 16:35 98 H 19 95 05/23/22 16:34 141/81 H 05/23/22 16:13 90 24 96 05/23/22 16:00 92 H 25 H 96 05/23/22 16:00 133/79 05/23/22 15:30 92 H 25 H 97 05/23/22 15:03 97 H 20 124/74 98 05/23/22 14:50 36.4 C L 84 16 134/71 97 Room Air Diagnostic Findings CT abd pelvis wo con CLINICAL HISTORY: llq abd pain TECHNIQUE: Helical axial images of the abdomen and pelvis were obtained. Automated dose lowering techniques and/or adjustment according to patient size were utilized for this exam. This exam was performed without intravenous contrast. CT DOSE: 211.96 mGycm COMPARISON: Comparison is made to CT abdomen pelvis 04/20/2022 FINDINGS: Lower chest: No acute abnormality Liver: Unremarkable. No focal lesions are seen. Gallbladder and biliary tree: Calcification versus antidependent stone is noted in the anterior aspect of the gallbladder. No intra- or extrahepatic biliary ductal dilation. Pancreas: Unremarkable, no focal lesions. Spleen: Unremarkable. Adrenals: Adrenal thickening is seen. Kidneys and ureters: Multiple renal cysts are seen on the right. Bladder: Diffuse homogeneous wall thickening is seen. Reproductive organs: Unremarkable. Bowel: Unremarkable. Lymph nodes Retroperitoneal: Unremarkable. Pelvic: Unremarkable. Mesenteric: Unremarkable. Peritoneum: Normal. Vessels: Unremarkable. Abdominal wall: Unremarkable. Bones: Numerous lytic lesions are seen. Loss of height of T11 and L1 are unchanged. Degenerative changes are seen. IMPRESSION: 1. No acute abnormalities, in particular no evidence of diverticulitis. 2. Osteopenia, lytic foci, and loss of height, unchanged from prior exam. 3. Bladder wall thickening, clinical correlation for UTI is recommended, although this may also represent chronic obstruction. ACT 112: Negative or not required by law. Electronically signed by: Edy Ramirez M.D. 05/23/2022 5:31 PM Dictated:05/23/22 1721 Transcribed: 05/23/22 1721 Code Status & VTE Plan VTE Prophylaxis Plan VTE Prophylaxis will be ordered: Yes
[2022-05-23] MEDS: SODIUM CHLORIDE 0.9% 1000ML 1,000 ML IV SCH (20:45)
[2022-05-23 21:25] LABS: Appearance Urine Clear (Clear); Bacteria Urine Automated 1+ (Negative); Bilirubin Urine Negative (Negative); Blood Urine 3+ (Negative); Color Urine Yellow; Epithelial Cell Urine Auto >30 /lpf (0-5); Glucose Urine UA Negative (Negative); Ketones Urine Trace (Negative); Leukocyte Esterase Urine 1+ (Negative); Nitrite Urine Negative (Negative); Protein Urine 2+ (Negative); RBC Urine Automated 0-4 /hpf (0-4); Specific Gravity Urine 1.017 (1.000-1.030); Urobilinogen Urine Negative (Negative); pH Urine 6.5 (4.5-7.5)
[2022-05-23] MEDS ORDERED: POLYETHYLENE (MIRALAX) 17 GM PACK PO PRN (21:54)
[2022-05-23] MEDS ORDERED: ONDANSETRON INJ 2 MG/ML 2 ML VIAL IV PRN (21:54)
[2022-05-23] MEDS ORDERED: oxyCODONE/ACETAMINOPHEN 5mg/325mg TAB PO PRN (21:54)
[2022-05-23] MEDS ORDERED: MEDICAL MARIJUANA PO SCH (21:54)
[2022-05-23] MEDS ORDERED: ACETAMINOPHEN 325 MG TAB PO PRN (21:54)
[2022-05-23] MEDS: HEPARIN SOD 5,000 UNIT/0.5 ML VIAL SQ SCH (23:22)
[2022-05-24] MEDS: SODIUM CHLORIDE 0.9% 1000ML 1,000 ML IV SCH (07:48)
[2022-05-24] MEDS: ANASTROZOLE 1 MG TAB PO SCH (07:48)
[2022-05-24] MEDS: ATORVASTATIN 10 MG TAB PO SCH (07:48)
[2022-05-24] MEDS: HEPARIN SOD 5,000 UNIT/0.5 ML VIAL SQ SCH (07:49)
[2022-05-24 08:34] LABS: Hematocrit (blood only) 23.4 % (34.1-44.9); Hemoglobin 7.6 g/dl (12.0-16.0); Mean Corpuscular Hemoglobin 30.9 pg (25.0-34.0); Mean Corpuscular Hgb Conc 32.5 g/dL (32.0-36.0); Mean Corpuscular Volume 95.1 fL (80.0-100.0); Mean Platelet Volume 9.7 fL (9.4-12.3); Platelet Count 197 K/uL (130-400); RDW Coefficient of Variation 17.8 % (11.5-14.5); Red Blood Count 2.46 M/uL (3.93-5.22); White Blood Count 6.58 K/ul (4.8-10.8)
[2022-05-24 08:57] LABS: Calcium 7.9 mg/dl (8.5-10.1); Creatinine Clr Calc Pharmacy 9.8 ml/min; Est GFR (African American) 13.9 ml/min
--- NOTE | 2022-05-24 13:32 | Electrocardiogram Report ---
Test Reason : Blood Pressure : / mmHG Vent. Rate : 093 BPM Atrial Rate : 093 BPM P-R Int : 158 ms QRS Dur : 070 ms QT Int : 366 ms P-R-T Axes : 062 005 067 degrees QTc Int : 455 ms Poor data quality, interpretation may be adversely affected Normal sinus rhythm Possible Left atrial enlargement Low voltage QRS T wave abnormality, consider anterior ischemia Abnormal ECG No previous ECGs available Confirmed by Trevor Kimbrough ([id number]) on 05/24/2022 1:32:52 PM Referred By: REFERRED SELF Confirmed By:Trevor Kimbrough
[2022-05-24] MEDS: MAGNESIUM SULFATE / D5W 1 GM/100 ML BAG IV SCH ×2 (15:29→17:49)
[2022-05-24 16:30] LABS: Hematocrit (blood only) 22.5 % (34.1-44.9); Hemoglobin 7.4 g/dl (12.0-16.0)
--- NOTE | 2022-05-24 17:00 | Consultation Report ---
NEPHROLOGY CONSULTATION NOTE DATE OF SERVICE: 05/24/2022. REASON FOR CONSULTATION: Acute on chronic renal failure with recent diagnosis of multiple myeloma. HISTORY OF PRESENT ILLNESS: The patient is a 72-year-old female who was recently admitted to the [facility] because of critical hypercalcemia and renal failure with concern for multiple myeloma. She had normal kidney function back in 12/2021, but for the last 6 weeks or so, she has had a creatinine in the 3 range. Even at the time of discharge on 04/27/2022, she had a creatinine of 3.38 on 04/27/2022. Since then, she has had multiple blood work done as an outpatient, which shows creatinine has been anywhere from 3.0-3.8. The most recent blood work was done on 05/21/2022 and had a creatini ne of 3.8. The patient was brought to the hospital by her daughter and son-in-law because of concern about getting dehydration as she was not eating or drinking much at home for the last week or so. C reatinine yesterday was 3.97. She has received IV fluid and with that, creatinine is down to 3.57, s o essentially baseline for the last 6 weeks. She is supposed to have a PET scan tomorrow and bone ma rrow biopsy on Wednesday at [facility]. She had a CT abdomen and pelvis done yesterday, which s hows osteopenia, osteolytic foci and some possible cystitis. PAST MEDICAL AND SURGICAL HISTORY: Includes hypertension, dyslipidemia, breast cancer, status post m astectomy and chemotherapy and chronic Arimidex therapy, prediabetes, recent admission for critical h ypercalcemia and renal failure, possible diagnosis of multiple myeloma. ALLERGIES: List reviewed and is as per the reconciliation list. HOME MEDICATIONS: Includes Arimidex, Lipitor, dronabinol, Zofran and Percocet as needed. PAST SURGICAL HISTORY: Includes partial mastectomy of left breast. FAMILY HISTORY: Negative for renal disease or dialysis. SOCIAL HISTORY: Never smoked. No alcohol. She is living alone. She uses cane for ambulation. REVIEW OF SYSTEMS: She had poor appetite, some nausea and one episode of vomiting. No diarrhea, con stipation, or blood in the stool. Denied any worsening shortness of breath. She has had a significa nt weight loss and has been feeling progressively weak. A total of 12 systems reviewed and negative. PHYSICAL EXAMINATION: GENERAL: Elderly white female who appears very weak and frail. VITAL SIGNS: Blood pressure 113/70, pulse rate 88, temperature 36.5, 98% on room air. Weight is onl y 44 kg. HEENT: Mucous membrane is moist. NECK: Supple. No jugular venous distention. CHEST: Bilateral clear to auscultation. CARDIOVASCULAR: S1 and S2, regular. ABDOMEN: Soft, nontender. EXTREMITIES: Show no edema. NEUROLOGIC: Awake, alert, oriented x3, normal speech. Moving all 4 extremities. LABORATORY TEST: At the time of discharge, on 04/27/2022, she had a creatinine of 3.38. On admission , yesterday it was 3.97. This morning is 3.57, sodium 139, potassium 4.0, chloride 111, bicarbonate 18, calcium 7.9. ASSESSMENT AND PLAN: A 72-year-old female with a possible diagnosis of multiple myeloma causing crit ical hypercalcemia and renal failure during the recent admission. She comes in with a suspicion of d ehydration causing prerenal type acute renal failure. I have been consulted for acute on chronic ellis al failure. At this time, I would call her creatinine as is at her new baseline with a creatinine in the 3 range. This is most likely secondary to multiple myeloma. She is supposed to have a PET scan and bone marrow biopsy done within the next few days, which I would strongly recommend to pursue. S he is not eating or drinking much, so it is reasonable to give her some IV fluid. She is currently g etting 100 mL per hour of normal saline, which is reasonable. She does have significant anemia with a hemoglobin down to 7.6. This is not new and most likely related with myeloma. No further workup i s needed for the acute renal failure as this is predominantly new onset kidney disease secondary to m ultiple myeloma. Her calcium is not high, in fact, it is low, so we do need to check magnesium and p hosphorus and correct the electrolytes as appropriate. Thank you very much for the consult. Job ID: [id number]
--- NOTE | 2022-05-24 23:50 | Hospitalist Progress Note ---
Date of Service May 24, 2022 Assessment & Plan (1) Nausea & vomiting: Plan: Present on admission with nausea and vomiting associated with poor oral intake Possible related to medication like tramadol/percocet CT abd/pelvis showed No acute abnormalities, in particular no evidence of diverticulitis. Bladder wall thickening. received IVF, will continue gentle hydration Diet advanced as tolerated Continue antiemetic med with zofran Will monitor electrolytes resolved FAUSTO on CKD concern for multiple myeloma Creatinine on admission 3.97 (creatinine on 12/12 was 3.0 and 12/19 was 3.8) Creatinine 3.5 today Nephrology consult Case discussed with nephrology- Seems to be her new baseline creatinine ~3.3 Avoid nephrotoxic agents Schedule for bone james biopsy on Wednesday at [facility] Ok from Nephrology standpoint to discharge home tomorrow Monitor BMP Anemia: Possible due to Multiple myeloma Hgb 8.8 today, last hgb in April was 7.9 Hemoglobin 7.4 today (last Hgb on discharge 7.9) last colonoscopy was in 2017 and was negative Continue monitor H/H outpatient History of breast cancer Continue anastrozole schedule for PET scan on Wednesday Dyslipidemia Continue statin Code Status: DNR/DNI as per patient wishes (Son and daughter in-law at bedside agreed) DVT Prophylaxis: SubQ heparin Disposition Plan to discharge in the morning Admission and Anticipated Discharge Date Admission Date: May 23, 2022 Subjective Pt was seen and examined for follow up of nausea and vomiting Lying in bed with no acute distress Patient said that she feels good Currently she does not have any episode of nausea or vomiting She said earlier she had an episode of diarrhea Spoke to daughter today provided with updates and answered all her questions Denies any chest pain, palpitation, dizziness, shortness of breath. Review of Systems Review of Systems: All systems reviewed & are unremarkable except as noted in Subjective Physical Exam Physical Exam: General- No acute distress Head- atraumatic Eyes- PERRL, EOMI, ENT- oropharynx clear Neck- supple, no JVD Lungs- clear to auscultation Heart- regular rhythm; no murmur Abdomen- normal bowel sounds, soft, +mild tenderness with deep palpation Extremities- no calf tenderness Neuro- alert, oriented x 3; PERRL, EOMI; no facial palsy; no dysarthria Skin- warm & dry Results & Data Results & Data ([facility]) Vital Signs (Past 12 Hours) Vital Signs Temp Pulse Resp BP Pulse Ox O2 Del Method 05/24/22 21:59 36.4 C L 93 H 17 93/53 L 96 Room Air 05/24/22 16:00 36.7 C 88 20 129/66 96 Room Air
[2022-05-25] MEDS: ATORVASTATIN 10 MG TAB PO SCH (07:40)
[2022-05-25] MEDS: ANASTROZOLE 1 MG TAB PO SCH (07:40)
[2022-05-25 08:01] LABS: Hematocrit (blood only) 22.8 % (34.1-44.9); Hemoglobin 7.4 g/dl (12.0-16.0); Mean Corpuscular Hgb Conc 32.5 g/dL (32.0-36.0); Mean Corpuscular Volume 95.4 fL (80.0-100.0); Mean Platelet Volume 9.6 fL (9.4-12.3); Platelet Count 187 K/uL (130-400); RDW Coefficient of Variation 17.8 % (11.5-14.5); RDW Standard Deviation 62.5 fL (36.4-46.3); Red Blood Count 2.39 M/uL (3.93-5.22)
[2022-05-25 08:21] LABS: BUN Creatinine Ratio 6.4 (10-20); Calcium 7.7 mg/dl (8.5-10.1); Creatinine Clr Calc Pharmacy 9.8 ml/min; Est GFR (African American) 13.8 ml/min; Est GFR (Non-African American) 11.9 ml/min; Magnesium 2.7 mg/dl (1.7-2.4); Phosphorus 3.1 mg/dl (2.5-4.9); Potassium 3.9 mmol/L (3.5-5.1)
--- NOTE | 2022-05-25 10:48 | Discharge Summary ---
Date of Service May 25, 2022 Admission HPI Per Admitting Provider 72 y/o female with a PMH of HTN, dyslipidemia, Breast Cancer s/p mastectomy and chemotherapy, on chronic Arimidex, and prediabetes, recent admission in April for hypercalcemia and renal failure with concern for multiple myeloma who presents to the ED today nausea and vomiting started since Wednesday. Pt is a poor historian due to dementia. History obtained from patient, son and daughter in- law at the bedside. On Wednesday pt developed nausea/ vomiting associated with poor oral intake. Family noticed vomiting occurs after eating ( usually with the ensure as well as other food). Pt has not been able to eat or drink in the last few day. She was prescribed Zofran that provided some relief for a day then symptoms reoccurs again. This morning she had an episode of nonbloody diarrhea. She was schedule to have a bone marrow biopsy done on but due to the nausea and vomiting, she could not make it to get the study done. as per family Pt has been having abdominal discomfort for the last few weeks that did not relieve with tramadol. She recently prescribed Percocet that seems to help. Son said they brought her to the ER today to get her to evaluate to make sure she was not in renal failure. Son said that after her last admission discharge she had good appetite for a 1 to 2 weeks, then back to her routine where she does not want to eat due to her recent diagnosis of prediabetes. She continues to lose weight. Pt said that she feels alittle weak compare to her baseline. denies any chest pain, palpitation, dizziness and SOB. Admission Exam Per Admitting Provider Physical Exam Physical Exam: General- No acute distress Head- atraumatic Eyes- PERRL, EOMI, ENT- oropharynx clear Neck- supple, no JVD Lungs- clear to auscultation Heart- regular rhythm; no murmur Abdomen- normal bowel sounds, soft, +mild tenderness with deep palpation Extremities- no calf tenderness Neuro- alert, oriented x 3; PERRL, EOMI; no facial palsy; no dysarthria Skin- warm & dry Principal Diagnosis Nausea and vomiting - resolved Acute on Chronic CKD 3 Anemia Discharge Exam Gen: WD/WN, F, Thin, NAD, A&O x3 HEENT: Normocephalic, atraumatic, conjunctivae moist, sclerae anicteric, mucous membranes moist. Lung: Clear to Auscultation bilaterally, no wheezes/rales/rhonchi Heart: Regular rate, regular rhythm, no murmurs, rubs, or gallops Abdomen: Soft, NT, ND +BS x 4 Extremities: No edema Skin: Warm, no rash, negative turgor. Discharge Data Allergies Allergy/AdvReac Type Severity Reaction Status Date / Time No Known Allergies Allergy Unknown Verified 05/23/22 17:55 Consultations 05/23/22 17:44 ED Decision to Admit Stat 05/23/22 18:03 Consult Nephrology Routine ASSESSMENT AND PLAN: A 72-year-old female with a possible diagnosis of multiple myeloma causing critical hypercalcemia and renal failure during the recent admission. She comes in with a suspicion of dehydration causing prerenal type acute renal failure. I have been consulted for acute on chronic renal failure. At this time, I would call her creatinine as is at her new baseline with a creatinine in the 3 range. This is most likely secondary to multiple myeloma. She is supposed to have a PET scan and bone marrow biopsy done within the next few days, which I would strongly recommend to pursue. She is not eating or drinking much, so it is reasonable to give her some IV fluid. She is currently getting 100 mL per hour of normal saline, which is reasonable. She does have significant anemia with a hemoglobin down to 7.6. This is not new and most likely related with myeloma. No further workup is needed for the acute renal failure as this is predominantly new onset kidney disease secondary to multiple myeloma. Her calcium is not high, in fact, it is low, so we do need to check magnesium and phosphorus and correct the electrolytes as appropriate. Ordered Studies Abdomen/Pelvis CT 05/23/22 15:50 CT abd pelvis wo con CLINICAL HISTORY: llq abd pain TECHNIQUE: Helical axial images of the abdomen and pelvis were obtained. Automated dose lowering techniques and/or adjustment according to patient size were utilized for this exam. This exam was performed without intravenous contrast. CT DOSE: 211.96 mGycm COMPARISON: Comparison is made to CT abdomen pelvis 04/20/2022 FINDINGS: Lower chest: No acute abnormality Liver: Unremarkable. No focal lesions are seen. Gallbladder and biliary tree: Calcification versus antidependent stone is noted in the anterior aspect of the gallbladder. No intra- or extrahepatic biliary ductal dilation. Pancreas: Unremarkable, no focal lesions. Spleen: Unremarkable. Adrenals: Adrenal thickening is seen. Kidneys and ureters: Multiple renal cysts are seen on the right. Bladder: Diffuse homogeneous wall thickening is seen. Reproductive organs: Unremarkable. Bowel: Unremarkable. Lymph nodes Retroperitoneal: Unremarkable. Pelvic: Unremarkable. Mesenteric: Unremarkable. Peritoneum: Normal. Vessels: Unremarkable. Abdominal wall: Unremarkable. Bones: Numerous lytic lesions are seen. Loss of height of T11 and L1 are unchanged. Degenerative changes are seen. IMPRESSION: 1. No acute abnormalities, in particular no evidence of diverticulitis. 2. Osteopenia, lytic foci, and loss of height, unchanged from prior exam. 3. Bladder wall thickening, clinical correlation for UTI is recommended, although this may also represent chronic obstruction. ACT 112: Negative or not required by law. Electronically signed by: Edy Ramirez M.D. 05/23/2022 5:31 PM Hospital Course (1) Nausea & vomiting: This is a 72-year-old female who has significant past medical history of HTN, HLD, history of breast cancer status post mastectomy, chemotherapy on chronic Arimidex therapy and prediabetes who presented to ER secondary to nausea and vomiting associate with poor oral intake. Her admitting creatinine was found to be 3.97. Of significance patient had recent admission in April for hypercalcemia and renal failure with concern for multiple myeloma. Initial work-up in ER revealed FAUSTO, CT abdomen pelvis showed no acute abnormalities and she was started on IV fluid. Her creatinine trended down to 3.58 with gentle fluid. She was treated conservatively with antiemetics. Case was discussed with nephrology who was also on board and felt that given underlying work-up for multiple myeloma 3.3 seems to be her new baseline creatinine. She also has anemia which is in conjunction with her suspected multiple myeloma diagnosis. Her hemoglobin remained stable during hospitalization was 7.4 at discharge. Her creatinine was 3.58 on day of discharge. Patient was discharged on 05/25/2022 and was going to outpatient PET scan later this morning. She is also scheduled for bone marrow biopsy on 05/26/2022. She is scheduled to see Dr. Diamond with oncology on 06/09/2022. On day of discharge patient was hemodynamically stable with blood pressure of 144/66. She was without acute complaint. Continue to have decreased oral intake, but nausea and vomiting has since resolved. Her potassium was 3.9 and magnesium 2.7 on day of discharge. It is recommended patient have a repeat CBC with differential and BMP within 1 week of discharge. Total Time Total Time Spent Total Time Spent (In Minutes): 40 min Discharge Plan Discharge Items Patient Disposition: Home - Self-Care Reason For Visit: N/V,FAUSTO ON CKD Discharge Diagnosis: Nausea and vomiting - resolved Acute on Chronic CKD 3 Anemia Activity: Resume your previous activity Activity Comment: When changing position move slowly and take your time to prevent dizziness Non-emergency contact: Primary Care Provider Call non-emergency contact if: you have any medication questions, your symptoms worsen, you have a fever and your temperature is above 101 Follow-up/Referrals: Amelia Tucker DO [Primary Care Provider] - 05/29/22 12:00 pm (Date & Time 05/29/2022 12:00 PM Provider Amelia Tucker DO Department [facility] ) Lou Hidalgo MD [Hospitalist] - 06/09/22 2:00 pm Diet: Regular Ambulatory Orders: Basic Metabolic Panel (Routine) Timeframe: 1 Week Location: Determined by Patient Ordered By: Maliha Guerin Complete Blood Count with Diff (Routine) Timeframe: 1 Week Location: Determined by Patient Ordered By: Maliha Allen Attending Provider Instructions: MEDICATION CHANGES: No Medication Changes Continue all current medications SUMMARY OF TEST RESULTS: You were admitted to hospital due to nausea, vomiting and poor oral intake. You were found to have worsening of your kidney function and anemia. You hemoglobin remained stable and did not require any transfusion. You were seen and evaluated by nephrology (kidney Doctor). Your kidney function did improve with IV fluid, but still remains elevated. You will continue work up as outpatient for elevated kidney function, specifically with Oncology to evaluate for multiple myeloma. PENDING TEST RESULTS: None RECOMMENDATIONS FOR FOLLOW-UP: Please keep all follow up appointments as schedule. Please repeat a CBC w diff and BMP within 1 week of discharge. Ask your primary care Physician to order this. You have a bone marrow biopsy scheduled for 05/26/22 at [facility]. Try to stay well hydrated drinking at least 8 - 8oz glasses of water daily. Avoid all anti inflammatory medications including ibuprofen, aleve, motrin, advil, naproxen or naprosyn due to their effects on the kidney. OTHER INSTRUCTIONS: Seek medical attention if you have: * temperature above 101 * chest pain or trouble breathing * abdominal pain, nausea, vomiting * diarrhea, dark stools or bloody stools * any unanswered questions or concerns Call 911 if symptoms are severe. Please take good care of yourself. It has been a pleasure taking care of you. Please take care of yourself. If you have any questions regarding your recent hospitalization please contact [facility] and request Chela Hammondist @ [phone]. Maliha Guerin PA-C Pending Studies at Discharge: No Stand-Alone Forms: My [facility], Smoking Cessation Medications and DC Order Prescriptions: Continued anastrozole 1 mg tablet 1 mg PO DAILY atorvastatin 10 mg tablet 10 mg PO QAM ondansetron HCl 4 mg tablet 4 mg PO Q6 PRN (Reason: Nausea) dronabinol 2.5 mg capsule 2.5 mg PO AMHS oxycodone-acetaminophen 5-325 mg tablet 1 tab PO Q6 PRN (Reason: Pain, Moderate) Discharge Orders: Discharge Order (Routine); Ordered 05/25/22 Ordered By: Maliha Guerin Admission Data Admit Date/Time: 05/23/22 18:02 Attending Provider: Keon Fischer Admit Provider: Keon Fischer Primary Care Provider: Amelia Tucker Other Providers: Keon Fischer ; Maliha Guerin ; Cornel Joe Other Interventions: Discharge Summary Assessment (RN) Last Done: 05/25/22 09:52 Supervising Physician Co-Signing Physician Notes Pt was seen and examined. agreed with Maliha exam, assemment and plan. Will check CBC w diff and BMP within 1 week of discharge. Follow up with your primary care provider within 1 week. MD Amado
== END 2022-05-25 10:24 | disposition home or self-care (01) | DRG 683 ==
LOC: ED 14:47 → 3W 18:02

== ENCOUNTER 2022-07-16 10:08 | Inpatient (IN) ==
[2022-07-16] MEDS ORDERED: CALCIUM GLUCONATE 1,000 MG/60 ML BAG IV SCH ×2 (10:30→10:45)
--- NOTE | 2022-07-16 10:37 | Emergency Department Note ---
Impression & Plan Hypocalcemia, Multiple myeloma, CKD (chronic kidney disease) stage 5, GFR less than 15 ml/min ED Provider Note Provider: Hernando Campa MD DATE OF SERVICE: 07/16/2022 CHIEF COMPLAINT: Low calcium HISTORY OF PRESENT ILLNESS: Patient is a 72-year-old female history of multiple myeloma currently on chemotherapy with [facility] oncology presenting here after routine outpatient blood work today revealed a severely low calcium level. Patient states may be a slight cramp in her stomach last night denies significant cramping or tingling at this point. Patient states she has been eating and drinking her normal amount although this is not amazing. Was hospitalized for high calcium levels over the summer. Has a baseline history of kidney dysfunction. Follows with nephrology in [place] but has previously seen [facility] nephrology here. Oncologist sent her here for IV calcium. REVIEW OF SYSTEMS: A total of 10 review of systems was obtained and negative except as stated above in the HPI. PAST MEDICAL HISTORY: As noted above MEDICATIONS: Reviewed home medications list SOCIAL HISTORY: Non-smoker PHYSICAL EXAM: GENERAL: alert and oriented in no acute distress on stretcher Head: normocephalic and atraumatic EYES: No injection, discharge or icterus. NECK: Trachea midline. ENT: Mucous membranes pink and moist. LUNGS: Airway patent. No retractions. Breath sounds clear with good air entry bilaterally. HEART: Regular rate and rhythm. No chest wall tenderness ABDOMEN: Soft and non-tender, without guarding or rebound. SKIN: Acyanotic, warm, dry, without rashes EXTREMITIES: Without swelling, tenderness or deformity NEUROLOGICAL: No focal deficits. No aphasia. No facial droop or slurred speech. Ambulatory. EK bpm sinus rhythm without PVC or PAC. No acute ST segment elevation or depression with QTC of 470. CONTINUOUS CARDIAC MONITORING: was ordered and showed a heart rate of 60s-80s bpm in normal sinus rhythm Patient's laboratory studies and imaging reviewed. Differential includes Infection, dehydration, metabolic abnormality, hypo/hyperglycemia, electrolyte disturbance, anemia, hypoxia, cardiac sources, intracerebral event, toxicologic, neurologic, as well as other pathologies. IMPRESSION/MEDICAL DECISION MAKING: Reviewed the above outpatient blood work from today and we will repeat these. Ordered some IV calcium but discussed with nephrology given her history of significant CKD for ideal replacement levels. Patient albumin level is not low on outside labs. PTH and Phos and mag were ordered in addition to repeat chemistries here. Discussed with Dr. Marrufo of nephrology who recommended 2 g of IV calcium gluconate and observation here. Discussed with the patient. Confirmed low calcium and ionized calcium. DIAGNOSIS: Hypocalcemia, multiple myeloma DISPOSITION: Hospitalist will evaluate Patient was agreeable with this plan. Past Med/Surg History Medical History Breast cancer High cholesterol Hypercalcemia Hypertension Hypokalemia Surgical History History of partial mastectomy of left breast Family History (Updated 07/16/22 @ 13:29 by Maliha Guerin PA-C) Brother Cancer Pancreatic Sister Cancer Lymphoma Family/Other Cancer Niece with breast cancer at age 40 (mother had lymphoma) Uncle Cancer Brain Mother Diabetes Father Heart disease Other Cystic kidney disease Social History Smoking Status: Never smoker Hx Alcohol Use: No Hx Substance Use: No Preferred Language: Afghan Communication Ability: Effective Protective Services Officer Required: No Beliefs That Will Affect Care: None Current Living Situation: Alone Feels Safe at Home: Yes Assistive Devices: Cane and Glasses Allergies Allergies Allergy/AdvReac Type Severity Reaction Status Date / Time No Known Allergies Allergy Unknown Verified 07/08/22 11:09 Home Meds Home Medications Medication Instructions Recorded Confirmed anastrozole 1 mg tablet (Arimidex) 1 mg PO DAILY 03/18/22 07/16/22 atorvastatin 10 mg tablet 10 mg PO QAM 03/18/22 07/16/22 ondansetron HCl 4 mg tablet 4 mg PO Q6 PRN Nausea 05/23/22 07/16/22 oxycodone-acetaminophen 5 mg-325 1 tab PO Q6 PRN Pain, Moderate 05/23/22 07/16/22 mg tablet acyclovir 400 mg tablet 400 mg PO BID 07/16/22 07/16/22 aspirin 81 mg tablet,delayed 81 mg PO DAILY 07/16/22 07/16/22 release dexamethasone 4 mg tablet 40 mg PO WK 07/16/22 07/16/22 lenalidomide 5 mg capsule 5 mg PO DAILY@1245 07/16/22 07/16/22 mirtazapine 15 mg tablet 15 mg PO HS 07/16/22 07/16/22 Results & Data (ED) Vital Signs Vital Signs - 24 hr 07/16/22 10:12 07/16/22 11:44 07/16/22 11:44 Temperature 36.7 C Temperature Source Temporal Artery Scan Pulse Rate 106 H 81 Pulse Rate [Apical] 81 Pulse Rhythm Regular Pulse Rhythm [Apical] Regular Pulse Strength [Apical] Normal Respiratory Rate 18 24 24 Respiratory Effort / Characteristics Non-Labored Non-Labored Respiratory Depth Normal Normal Respiratory Pattern Regular Regular Blood Pressure 121/82 Blood Pressure [Right Arm] 136/83 Blood Pressure Mean 95 Blood Pressure Mean [Right Arm] 100 Blood Pressure Position Sitting Blood Pressure Position [Right Arm] Lying Pulse Oximetry 100 99 99 Oxygen Delivery Method Room Air Room Air Room Air Sepsis Recent Fever Within 48 Hours No Sepsis New/Unexplained Change in Mental Status No Sepsis Action Taken by Nursing No Action Required 07/16/22 13:00 Temperature Temperature Source Pulse Rate Pulse Rate [Apical] 78 Pulse Rhythm Pulse Rhythm [Apical] Regular Pulse Strength [Apical] Normal Respiratory Rate 18 Respiratory Effort / Characteristics Non-Labored Respiratory Depth Normal Respiratory Pattern Regular Blood Pressure Blood Pressure [Right Arm] 153/92 H Blood Pressure Mean Blood Pressure Mean [Right Arm] 112 Blood Pressure Position Blood Pressure Position [Right Arm] Lying Pulse Oximetry 97 Oxygen Delivery Method Room Air Sepsis Recent Fever Within 48 Hours Sepsis New/Unexplained Change in Mental Status Sepsis Action Taken by Nursing Laboratory Data Result diagrams: 07/16/22 11:27 07/16/22 14:27 Lab Results 07/16/22 07/16/22 07/16/22 Range/Units 11:27 11:27 11:27 WBC 2.93 L (4.8-10.8) K/ul RBC 2.56 L (3.93-5.22) M/uL Hgb 8.1 L (12.0-16.0) g/dl Hct 24.6 L (34.1-44.9) % MCV 96.1 (80.0-100.0) fL MCH 31.6 (25.0-34.0) pg MCHC 32.9 (32.0-36.0) g/dL RDW Std Deviation 54.5 H (36.4-46.3) fL RDW Coeff of [place] 15.7 H (11.5-14.5) % Plt Count 48 L (130-400) K/uL MPV 13.4 H (9.4-12.3) fL Immature Gran % (Auto) 0.3 % Neut % (Auto) 73.4 % Lymph % (Auto) 12.3 % [place] % (Auto) 13.0 % Eos % (Auto) 0.7 % Baso % (Auto) 0.3 % Neut # (Auto) 2.15 (1.4-6.5) K/uL Lymph # (Auto) 0.36 L (1.2-3.4) K/uL [place] # (Auto) 0.38 (0.24-0.82) K/uL Eos # (Auto) 0.02 (0-0.50) K/uL Baso # (Auto) 0.01 (0-0.2) K/uL Immature Gran # (Auto) 0.01 (0.00-0.02) K/uL Polychromasia 1+ Anisocytosis Present Sodium 137 (136-145) mmol/L Potassium 4.8 (3.5-5.1) mmol/L Chloride 107 (98-107) mmol/L Carbon Dioxide 18 L (21-32) mmol/L Anion Gap 12 H (3-11) BUN 54 H (6-23) mg/dl Creatinine 3.61 H (0.6-1.2) mg/dl Est Cr Clr Drug Dosing 9.2 ml/min Est GFR ( Amer) 13.7 ml/min Est GFR (Non-Af Amer) 11.8 ml/min BUN/Creatinine Ratio 15.0 (10-20) Glucose 88 (70-99(Fasting)) mg/dl Calcium 6.1 L (8.5-10.1) mg/dl Ionized Calcium (1.12-1.32) mmol/L Phosphorus 4.5 (2.5-4.9) mg/dl Magnesium 1.3 L (1.7-2.4) mg/dl Total Bilirubin 0.7 (0.2-1.0) mg/dl AST 15 (13-39) U/L ALT 21 (7-52) U/L Alkaline Phosphatase 75 (34-104) U/L Total Protein 5.8 L (6.0-8.3) gm/dl Albumin 3.9 (3.4-5.0) gm/dl Globulin 1.9 L (2.5-4.0) gm/dl Albumin/Globulin Ratio 2.1 H (0.9-2) TSH 2.673 (0.300-4.500) uIu/ml PTH Intact (12.0-88.0) pg/ml SARS-CoV-2, RNA, NAAT (NEGATIVE) 07/16/22 07/16/22 07/16/22 Range/Units 11:27 11:27 11:45 WBC (4.8-10.8) K/ul RBC (3.93-5.22) M/uL Hgb (12.0-16.0) g/dl Hct (34.1-44.9) % MCV (80.0-100.0) fL MCH (25.0-34.0) pg MCHC (32.0-36.0) g/dL RDW Std Deviation (36.4-46.3) fL RDW Coeff of [place] (11.5-14.5) % Plt Count (130-400) K/uL MPV (9.4-12.3) fL Immature Gran % (Auto) % Neut % (Auto) % Lymph % (Auto) % [place] % (Auto) % Eos % (Auto) % Baso % (Auto) % Neut # (Auto) (1.4-6.5) K/uL Lymph # (Auto) (1.2-3.4) K/uL [place] # (Auto) (0.24-0.82) K/uL Eos # (Auto) (0-0.50) K/uL Baso # (Auto) (0-0.2) K/uL Immature Gran # (Auto) (0.00-0.02) K/uL Polychromasia Anisocytosis Sodium (136-145) mmol/L Potassium (3.5-5.1) mmol/L Chloride (98-107) mmol/L Carbon Dioxide (21-32) mmol/L Anion Gap (3-11) BUN (6-23) mg/dl Creatinine (0.6-1.2) mg/dl Est Cr Clr Drug Dosing ml/min Est GFR ( Amer) ml/min Est GFR (Non-Af Amer) ml/min BUN/Creatinine Ratio (10-20) Glucose (70-99(Fasting)) mg/dl Calcium (8.5-10.1) mg/dl Ionized Calcium 0.81 L (1.12-1.32) mmol/L Phosphorus (2.5-4.9) mg/dl Magnesium (1.7-2.4) mg/dl Total Bilirubin (0.2-1.0) mg/dl AST (13-39) U/L ALT (7-52) U/L Alkaline Phosphatase (34-104) U/L Total Protein (6.0-8.3) gm/dl Albumin (3.4-5.0) gm/dl Globulin (2.5-4.0) gm/dl Albumin/Globulin Ratio (0.9-2) TSH (0.300-4.500) uIu/ml PTH Intact 339.5 H (12.0-88.0) pg/ml SARS-CoV-2, RNA, NAAT NEGATIVE (NEGATIVE) Administered Medications Discontinued Medications Calcium Gluconate 2,000 mg/ (Sodium Chloride) 70 mls @ 280 mls/hr IV NOW STA Stop: 07/16/22 10:55 Last Infusion: 07/16/22 12:28 Dose: 0 mls/hr Documented By: [facility] Admin: 07/16/22 11:47 Dose: 280 mls/hr Documented By: [facility] Magnesium Sulfate/Dextrose (Magnesium Sulfate / D5w) 1 gm in 100 mls @ 100 mls/hr IV NOW STA Stop: 07/16/22 14:29 Last Infusion: 07/16/22 14:45 Dose: 0 mls/hr Documented By: [facility] Admin: 07/16/22 13:37 Dose: 100 mls/hr Documented By: [facility] Discharge Plan Visit Data Chief Complaint: Referred by Doctor Stated Complaint: REF BY , HYPOCALCIMIA ED Provider: Hernando Campa Discharge Problem: Hypocalcemia, Multiple myeloma, CKD (chronic kidney disease) stage 5, GFR less than 15 ml/min Patient Disposition: Admitted As Inpatient Discharge Instructions Interventions: ED Discharge Assessment Last Done: 07/16/22 15:00
[2022-07-16] MEDS ORDERED: CALCIUM GLUCONATE 10% 2,000 MG in SODIUM CHLORIDE 0.9% 50 ML IV STA (10:41)
[2022-07-16 12:29] LABS: Anisocytosis Present; Basophils # (auto) 0.01 K/uL (0-0.2); Basophils % (auto) 0.3 %; Eosinophils # (auto) 0.02 K/uL (0-0.50); Eosinophils % (auto) 0.7 %; Hematocrit (blood only) 24.6 % (34.1-44.9); Hemoglobin 8.1 g/dl (12.0-16.0); Immature Granulocytes # (auto) 0.01 K/uL (0.00-0.02); Immature Granulocytes % (auto) 0.3 %; Lymphocytes # (auto) 0.36 K/uL (1.2-3.4); Lymphocytes % (auto) 12.3 %; Mean Corpuscular Hemoglobin 31.6 pg (25.0-34.0); Mean Corpuscular Hgb Conc 32.9 g/dL (32.0-36.0); Mean Corpuscular Volume 96.1 fL (80.0-100.0); Mean Platelet Volume 13.4 fL (9.4-12.3); Monocytes # (auto) 0.38 K/uL (0.24-0.82); Neutrophils # (auto) 2.15 K/uL (1.4-6.5); Neutrophils % (auto) 73.4 %; Platelet Count 48 K/uL (130-400); Polychromasia 1+; RDW Coefficient of Variation 15.7 % (11.5-14.5); RDW Standard Deviation 54.5 fL (36.4-46.3); Red Blood Count 2.56 M/uL (3.93-5.22); White Blood Count 2.93 K/ul (4.8-10.8)
[2022-07-16 12:30] LABS: Albumin Globulin Ratio 2.1 (0.9-2); Albumin Level 3.9 gm/dl (3.4-5.0); Bilirubin,Total 0.7 mg/dl (0.2-1.0); Calcium 6.1 mg/dl (8.5-10.1); Creatinine Clr Calc Pharmacy 9.2 ml/min; Est GFR (African American) 13.7 ml/min; Est GFR (Non-African American) 11.8 ml/min; Globulin 1.9 gm/dl (2.5-4.0); Magnesium 1.3 mg/dl (1.7-2.4); Phosphorus 4.5 mg/dl (2.5-4.9); Potassium 4.8 mmol/L (3.5-5.1); Total Protein 5.8 gm/dl (6.0-8.3)
[2022-07-16] MEDS ORDERED: ONDANSETRON INJ 2 MG/ML 2 ML VIAL IV PRN (13:12)
[2022-07-16] MEDS ORDERED: ACETAMINOPHEN 325 MG TAB PO PRN (13:12)
[2022-07-16] MEDS ORDERED: POLYETHYLENE (MIRALAX) 17 GM PACK PO PRN (13:12)
[2022-07-16] MEDS ORDERED: MAGNESIUM SULFATE / D5W 1 GM/100 ML BAG IV STA (13:30)
--- NOTE | 2022-07-16 13:30 | History & Physical Report ---
Date of Service July 16, 2022 Assessment & Plan (1) Hypocalcemia: (2) Hypomagnesemia with secondary hypocalcemia: (3) Multiple myeloma: (4) CKD (chronic kidney disease) stage 5, GFR less than 15 ml/min: (5) High cholesterol: Plan This is a 72-year-old female who has significant past medical history of HTN, HLD, history of breast cancer status post mastectomy/chemotherapy on chronic Arimidex therapy, multiple myeloma currently undergoing chemotherapy and prediabetes who presented to ER secondary to referral from oncology secondary to abnormal labs. Hypocalcemia Hypomagnesemia admit to med tele pt received 2g calc gluconate in ED will give 1g mag sulfate repeat calcium, ionized calcium and mag at 1800 obtain serum vit D levels, PTH is elevated at 339.5 phos and tsh normal she is not on any meds that cause hypocalcemia nephrology consulted as pt established in setting of renal disease Multiple Myeloma hx of breast ca pt follows Dr. Hidalgo last chemo 1 week ago, was to have chemo today on Darzalex, decadron and revlimid pt to continue revlimid for 6 more days to complete cycle continue arimidex for hx of breast ca Pancytopenia in setting of chemotherapy monitor cbc closely CKD 5 renal fxn stable avoid nephrotoxic agents HLD continue statin Dvt ppx: SCDS in setting of low plts, encouraged pt to ambulate Dispo: med tele, correct electrolytes, possible d/c tomorrow if resolved DNR/DNI PCP: Garrett Pt was seen and examined in collaboration with Dr. Nye, please see addendum History of Present Illness Chief Complaint: Referred by oncology due to low calcium. Primary Care Provider: Amelia Tucker, DO This is a 72-year-old female who has significant past medical history of HTN, HLD, history of breast cancer status post mastectomy/chemotherapy on chronic Arimidex therapy, multiple myeloma currently undergoing chemotherapy and prediabetes who presented to ER secondary to referral from oncology secondary to abnormal labs. [facility] and is undergoing current treatment for multiple myeloma. She currently takes Darzalex, Decadron and Revlimid. Her last chemo treatment was 1 week ago. She presented to oncol ogy clinic today for next chemo treatment. Pretreatment blood work showed a critical low calcium at 6. She was referred to ED for calcium replacement. Patient's son-in-law is at bedside. Patient offers no complaints and is otherwise been feeling well. As of late she has had more energy, has been able to get out and walk and has had a otherwise good appetite. She denies any muscle cramping, generalized weakness, diarrhea or constipation. She further denies any recent illness, fever, chills, sweats, lightheadedness, dizziness, chest pain, shortness of breath, cough, nausea, vomiting, abdominal pain, change in bowel or urinary habits. In ED her calcium was 6.1 with an ionized calcium 0.81. She was ordered 2 g of calcium gluconate. Case was discussed with ED provider and scientific programmer who recommended overnight admission and observation. Allergies Allergy/AdvReac Type Severity Reaction Status Date / Time No Known Allergies Allergy Unknown Verified 07/08/22 11:09 Home Medications Medication Instructions Recorded Confirmed Type anastrozole 1 mg tablet (Arimidex) 1 mg PO DAILY 03/18/22 07/16/22 History atorvastatin 10 mg tablet 10 mg PO QAM 03/18/22 07/16/22 History ondansetron HCl 4 mg tablet 4 mg PO Q6 PRN Nausea 05/23/22 07/16/22 History oxycodone-acetaminophen 5 mg-325 1 tab PO Q6 PRN Pain, Moderate 05/23/22 07/16/22 History mg tablet acyclovir 400 mg tablet 400 mg PO BID 07/16/22 07/16/22 History aspirin 81 mg tablet,delayed 81 mg PO DAILY 07/16/22 07/16/22 History release dexamethasone 4 mg tablet 40 mg PO WK 07/16/22 07/16/22 History lenalidomide 5 mg capsule 5 mg PO DAILY@1245 07/16/22 07/16/22 History mirtazapine 15 mg tablet 15 mg PO HS 07/16/22 07/16/22 History Past Med/Surg History Medical History Breast cancer High cholesterol Hypercalcemia Hypertension Hypokalemia Surgical History History of partial mastectomy of left breast Family History (Updated 07/16/22 @ 13:29 by Maliha Guerin PA-C) Brother Cancer Pancreatic Sister Cancer Lymphoma Family/Other Cancer Niece with breast cancer at age 40 (mother had lymphoma) Uncle Cancer Brain Mother Diabetes Father Heart disease Other Cystic kidney disease Social History Smoking Status: Never smoker Hx Alcohol Use: No Hx Substance Use: No Preferred Language: Telugu Communication Ability: Effective It Integration Architect Required: No Beliefs That Will Affect Care: None Current Living Situation: Alone Feels Safe at Home: Yes Assistive Devices: Cane and Glasses Review of Systems Review of Systems: All systems reviewed & are unremarkable except as noted in HPI & below Physical Exam Physical Exam: Constitutional: Thin, fraile, F, vitals as above, NAD, sitting up in bed, pleasant, conversing easily Head: Normocephalic, Atraumatic Eyes: PERRL, conjunctivae normal, anicteric sclerae ENMT: external ear and nose normal, oropharynx normal Neck: trachea midline, no thyromegaly normal visual inspection Respiratory: normal respiratory effort, lungs clear to auscultation, no wheeze, rales, rhonchi. Normal insp/exp effort, no accessory muscle use Cardiovascular: RRR, no murmur, no edema Vessels: no JVD or carotid bruit Chest: normal inspection of chest Abdomen: normal bowel sounds, soft, nontender, no hepatosplenomegaly Musculoskeletal: no cyanosis or clubbing, extremities motor strength 5/5 Skin: no rashes, warm and dry normal turgor Neurologic: PERRL, EOMI, accommodation nl, no face palsy, no dysarthria CN's II-XI intact bilaterally and moves all extremities Psychiatric: A+Ox3, euthymic affect Lymphatic: no cervical or axillary lymphadenopathy : deferred Results & Data Results & Data ([facility]) Vital Signs (Past 12 Hours) Vital Signs Temp Pulse Pulse Resp BP BP Pulse Ox 07/16/22 11:44 81 24 99 07/16/22 11:44 81 24 136/83 99 07/16/22 10:12 36.7 C 106 H 18 121/82 100 O2 Del Method 07/16/22 11:44 Room Air 07/16/22 11:44 Room Air 07/16/22 10:12 Room Air Medications Administered Medication List Discontinued Medications Calcium Gluconate 2,000 mg/ (Sodium Chloride) 70 mls @ 280 mls/hr IV NOW STA Stop: 07/16/22 10:55 Last Infusion: 07/16/22 12:28 Dose: 0 mls/hr Documented By: Admin: 07/16/22 11:47 Dose: 280 mls/hr Documented By: LUCIA ECG Rate (beats per minute): 77 Rhythm: normal sinus Additional Comments: qtc 470ms COVID-19 Results Results COVID-19 Adm Lab Results: RBC 2.56 M/uL (3.93-5.22) L 07/16/22 WBC 2.93 K/ul (4.8-10.8) L 07/16/22 Hgb 8.1 g/dl (12.0-16.0) L 07/16/22 Hct 24.6 % (34.1-44.9) L 07/16/22 Plt Count 48 K/uL (130-400) L 07/16/22 Neutrophils (%) (Auto) 73.4 % 07/16/22 Lymphocytes (%) (Auto) 12.3 % 07/16/22 Monocytes # (Auto) 0.38 K/uL (0.24-0.82) 07/16/22 Eosinophils # (Auto) 0.02 K/uL (0-0.50) 07/16/22 Immature Granulocyte % (Auto) 0.3 % 07/16/22 Neutrophils # (Auto) 2.15 K/uL (1.4-6.5) 07/16/22 Lymphocytes # (Auto) 0.36 K/uL (1.2-3.4) L 07/16/22 Monocytes # (Auto) 0.38 K/uL (0.24-0.82) 07/16/22 Eosinophils # (Auto) 0.02 K/uL (0-0.50) 07/16/22 Basophils # (Auto) 0.01 K/uL (0-0.2) 07/16/22 Immature Granulocyte # (Auto) 0.01 K/uL (0.00-0.02) 2 Polychromasia 1+ 07/16/22 Anisocytosis Present 07/16/22 Na 139 mmol/L (136-145) 07/16/22 K 4.5 mmol/L (3.5-5.1) 07/16/22 Cl 111 mmol/L (98-107) H 07/16/22 CO2 17 mmol/L (21-32) L 07/16/22 Anion Gap 11 (3-11) 07/16/22 BUN 57 mg/dl (6-23) H 07/16/22 Creatinine 3.62 mg/dl (0.6-1.2) H 07/16/22 BUN/Creatinine Ratio 15.7 (10-20) 07/16/22 Glucose Level 96 mg/dl (70-99(Fasting)) 07/16/22 Ca 6.5 mg/dl (8.5-10.1) L 07/16/22 Phosphorus Level 4.5 mg/dl (2.5-4.9) 07/16/22 Total Bilirubin 0.7 mg/dl (0.2-1.0) 07/16/22 AST/SGOT 15 U/L (13-39) 07/16/22 ALT/SGPT 21 U/L (7-52) 07/16/22 Alkaline Phosphatase 75 U/L (34-104) 07/16/22 Total Protein 5.8 gm/dl (6.0-8.3) L 07/16/22 Albumin 3.9 gm/dl (3.4-5.0) 07/16/22 Globulin 1.9 gm/dl (2.5-4.0) L 07/16/22 Albumin/Globulin Ratio 2.1 (0.9-2) H 07/16/22 SARS-CoV-2, RNA, NAAT NEGATIVE (NEGATIVE) 07/16/22 Code Status & VTE Plan Code Status DNR/DNI VTE Prophylaxis Plan VTE Prophylaxis will be ordered: Yes Supervising Physician Co-Signing Physician Notes Patient is a 72-year-old female with history of breast cancer, hypertension, hyperlipidemia, CKD, multiple myeloma currently undergoing chemotherapy presents with history of abnormal labs. Patient was evaluated at her oncology clinic today and was tested for blood work which showed hypocalcemia. Patient was sent to ED for further evaluation. Currently patient asymptomatic. Please review HPI for complete details of presentation. On exam patient is thin, frail, chronically appearing, no apparent distress, normocephalic atraumatic, EOMI, normal breath sounds, clear to auscultation, S1-S2, no murmur, no pedal edema, abdomen soft, nontender, normal bowel sounds, alert, awake, oriented, grossly no focal deficits. Blood work showed hemoglobin 8.1, platelet count 48K, creatinine 3.61, calcium 6.1, magnesium 1.3, normal TSH and elevated PTH. Patient is admitted for management of hypocalcemia, hypomagnesemia. Received calcium gluconate in ED. Also received magnesium replacement. Agree with further work-up to determine cause for hypercalcemia. Nephrology consulted. Avoid nephrotoxic agents as able. Monitor CBC and calcium levels. I personally reviewed the record. Patient is interviewed and examined at bedside. Patient's care is coordinated with Maliha Guerin PA-C. Please refer to the documentation above for details of patient's presentation and for discussion of other issues.
--- NOTE | 2022-07-16 13:34 | Electrocardiogram Report ---
Test Reason : Blood Pressure : / mmHG Vent. Rate : 077 BPM Atrial Rate : 077 BPM P-R Int : 152 ms QRS Dur : 066 ms QT Int : 416 ms P-R-T Axes : 048 -06 058 degrees QTc Int : 470 ms Sinus rhythm Otherwise normal ECG When compared with ECG of 23-MAY-2022 15:09, T wave inversion no longer evident in Anterior leads Confirmed by Lavon Moon ([id number]) on 07/16/2022 1:33:39 PM Referred By: REFERRED SELF Confirmed By:Gab Moon
[2022-07-16 14:53] LABS: BUN Creatinine Ratio 15.7 (10-20); Calcium 6.5 mg/dl (8.5-10.1); Creatinine Clr Calc Pharmacy 9.2 ml/min; Est GFR (African American) 13.7 ml/min; Est GFR (Non-African American) 11.8 ml/min; Magnesium 1.7 mg/dl (1.7-2.4); Potassium 4.5 mmol/L (3.5-5.1)
[2022-07-16] MEDS ORDERED: oxyCODONE/ACETAMINOPHEN 5mg/325mg TAB PO PRN (15:45)
--- NOTE | 2022-07-16 18:09 | Nephrology Consultation ---
Date of Consultation July 16, 2022 Assessment & Plan (1) Hypocalcemia: critical hypocalcemia s/p 2 gm IV calcium and not much change after this infusion; had another infusion 1 gm this evening; no symptoms and no ECG changes no obvious cause for hypocalcemia and work up in progress. 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 doubt role for low mag here though it does need repletion; mag has not been low enough to cause PTH resistance (usually seen w/ mag <1). >ordered repeat phos for am as well as CK, uric acid, 1,25 dihydroxy vitamin D >>will give another 2 gm IV mag and 3 gm IV calcium this evening and started calcium carbonate 1250 mg tid (2) CKD (chronic kidney disease) stage 5, GFR less than 15 ml/min: technically she would not be CKD 5 for another week or so when she will be 3 mos w/ renal function in current range; that said, there is little chance of her renal function improving in any meaningful way more than likely at this point; best chance for renal recovery would be successful treatment of myeloma. -there had been discussion of a renal biopsy back in April -- need more information to evaluate that now; myeloma involves the kidney extremely frequently (at least 1/3 of the time) -daily bmp -no evidence that she needs a renal diet at this time History of Present Illness Reason for Consultation: hypocalcemia Requesting Physician: Dr Nye Attending Physician: Ron Nye MD History of Present Illness 72 y/o F under active therapy for multiple myeloma whom I'm asked to see for hypocalcemia was admitted here today for same after being sent to ER d/t calcium level of 6 on surveillance labs. PMH includes severe subacute FAUSTO w/ creatinine moving from 0.6 this spring to mid 3's-4's where it has plateau'd since April 2022. [address] Rojas in late April to establish care; consideration had been at that time of BM Bx versus renal bx. BM Bx mid May showed kappa restricted plasma cell myeloma. Also w/ PMH HTN, breast CA s/p mastectomy/CTX on chronic arimidex, prediabetes. Admitted here for intractable n/v and FAUSTO mid May. Also admitted here with FAUSTO, hypercalcemia in April. Her calcium has been running in the 8s on weekly labs until late June when it dropped to 7's. her albumin has been stable at about 4. She takes no calcium supplements as OP. She was noted on admission to have hypomagnesemia as well of 1.3 with calcium of 6.5 and creatinine 3.6 w/ bicarbonate 17; PTH 340; phos 4.5. I discussed her care w/ ER physician and recommended 2 gm calcium gluconate IV and 1 gm magnesium. The pt denied acute symptoms this am when I saw her > no sob, no n/v, no mm fasciculations or cramps that she'd noted except some low anterior abdominal pain. no generalized weakness. no new/worrisome voiding sx. She lives independently and takes short walks w/ cane (about 400 yards total) routinely, including yesterday and had been planning to go today as well. no c/o diarrhea or constipation. she has lost significant weight and recently started remeron w/ some success to increase her appetaite. She has not had any zolendronate or denosumab infusions in past weeks. Allergies Allergy/AdvReac Type Severity Reaction Status Date / Time No Known Allergies Allergy Unknown Verified 07/08/22 11:09 Home Medications Medication Instructions Recorded Confirmed Type anastrozole 1 mg tablet (Arimidex) 1 mg PO DAILY 03/18/22 07/16/22 History atorvastatin 10 mg tablet 10 mg PO QAM 03/18/22 07/16/22 History ondansetron HCl 4 mg tablet 4 mg PO Q6 PRN Nausea 05/23/22 07/16/22 History oxycodone-acetaminophen 5 mg-325 1 tab PO Q6 PRN Pain, Moderate 05/23/22 07/16/22 History mg tablet acyclovir 400 mg tablet 400 mg PO BID 07/16/22 07/16/22 History aspirin 81 mg tablet,delayed 81 mg PO DAILY 07/16/22 07/16/22 History release dexamethasone 4 mg tablet 40 mg PO WK 07/16/22 07/16/22 History lenalidomide 5 mg capsule 5 mg PO DAILY@1245 07/16/22 07/16/22 History mirtazapine 15 mg tablet 15 mg PO HS 07/16/22 07/16/22 History Patient History Medical History (Updated 07/16/22 @ 18:51 by Dodie Menjivar MD, PhD) Breast cancer CKD (chronic kidney disease), stage V High cholesterol Hypercalcemia Hypertension Hypokalemia Multiple myeloma Surgical History History of partial mastectomy of left breast Family History (Updated 07/16/22 @ 13:29 by Maliha Guerin PA-C) Brother Cancer Pancreatic Sister Cancer Lymphoma Family/Other Cancer Niece with breast cancer at age 40 (mother had lymphoma) Uncle Cancer Brain Mother Diabetes Father Heart disease Other Cystic kidney disease Social History Smoking Status: Never smoker Hx Alcohol Use: No Hx Substance Use: No Preferred Language: Mohawk Communication Ability: Effective 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 Beliefs That Will Affect Care: None Current Living Situation: Alone Feels Safe at Home: Yes Assistive Devices: Cane and Glasses Review of Systems Review of Systems: All systems reviewed & are unremarkable except as noted in HPI & below Physical Exam Constitutional: well developed, + cachectic and cooperative; no acute distress Eyes: EOM intact bilaterally ENMT: Ears: no external ear abnormality Nose: no external nose abnormality Mouth: + dry oral mucous membranes Neck: no nuchal rigidity Respiratory: normal respiratory effort Auscultation: + diminished lung sounds Cardiovascular: RRR, no murmur, no edema Gastrointestinal (Abdomen): Inspection/Auscultation: + abdomen distended (slight low anterior abdomen) and normal bowel sounds Percussion/Palpation: abdomen soft; abdomen nontender Musculoskeletal: Extremities: strength 5/5 throughout Skin: no rashes, warm and dry Neurologic: rodriguez, fluent speech, no tremor Psychiatric: A+Ox3, euthymic affect Results & Data ([facility]) Vital Signs (Past 12 Hours) Vital Signs Temp Pulse Pulse Resp BP BP Pulse Ox 07/16/22 13:33 76 18 97 07/16/22 13:32 76 18 07/16/22 13:00 78 18 153/92 H 97 07/16/22 11:44 81 24 99 07/16/22 11:44 81 24 136/83 99 07/16/22 10:12 36.7 C 106 H 18 121/82 100 O2 Del Method 07/16/22 13:33 Room Air 07/16/22 13:32 07/16/22 13:00 Room Air 07/16/22 11:44 Room Air 07/16/22 11:44 Room Air 07/16/22 10:12 Room Air Laboratory Results 07/16/22 11:27 07/16/22 17:44 LESLIE labs reviewed Diagnostic Findings ECG today Test Reason : Blood Pressure : mmHG Vent. Rate : 077 BPM Atrial Rate : 077 BPM P-R Int : 152 ms QRS Dur : 066 ms QT Int : 416 ms P-R-T Axes : 048 -06 058 degrees QTc Int : 470 ms Sinus rhythm Otherwise normal ECG When compared with ECG of 23-MAY-2022 15:09, T wave inversion no longer evident in Anterior leads Confirmed by Lavon Moon ([id number]) on 07/16/2022 1:33:39 PM
[2022-07-16 18:29] LABS: BUN Creatinine Ratio 15.1 (10-20); Calcium 6.4 mg/dl (8.5-10.1); Creatinine Clr Calc Pharmacy 9.3 ml/min; Est GFR (African American) 13.9 ml/min; Magnesium 1.6 mg/dl (1.7-2.4); Potassium 4.3 mmol/L (3.5-5.1)
[2022-07-16] MEDS ORDERED: CALCIUM GLUCONATE 10% 1,000 MG in DEXTROSE 5% 50 ML IV ONE (18:45)
[2022-07-16] MEDS ORDERED: MAGNESIUM SULFATE / D5W 1 GM/100 ML BAG IV ONE (18:45)
[2022-07-16] MEDS ORDERED: STAT IV STA ×2 (18:45→19:32)
[2022-07-16] MEDS ORDERED: CALCIUM GLUCONATE 10% 3,000 MG in DEXTROSE 5% 100 ML IV ONE (19:32)
[2022-07-16] MEDS ORDERED: MIRTAZAPINE TAB 15 MG TAB PO SCH (21:00)
[2022-07-16] MEDS: CALCIUM CARBONATE 1,250 MG/5 ML UDC PO SCH (21:01)
[2022-07-16] MEDS: ACYCLOVIR 400 MG TAB PO SCH (22:37)
[2022-07-16] MEDS: MAGNESIUM SULFATE / D5W 1 GM/100 ML BAG IV SCH (22:37)
[2022-07-17] MEDS: MAGNESIUM SULFATE / D5W 1 GM/100 ML BAG IV SCH (00:30)
[2022-07-17 06:25] LABS: Basophils # (auto) 0.01 K/uL (0-0.2); Basophils % (auto) 0.5 %; Eosinophils # (auto) 0.03 K/uL (0-0.50); Eosinophils % (auto) 1.4 %; Hemoglobin 7.4 g/dl (12.0-16.0); Immature Granulocytes # (auto) 0.02 K/uL (0.00-0.02); Immature Granulocytes % (auto) 0.9 %; Lymphocytes # (auto) 0.43 K/uL (1.2-3.4); Mean Platelet Volume 12.4 fL (9.4-12.3); Monocytes # (auto) 0.29 K/uL (0.24-0.82); Monocytes % (auto) 13.5 %; Neutrophils # (auto) 1.37 K/uL (1.4-6.5); Neutrophils % (auto) 63.7 %; Platelet Count 46 K/uL (130-400); White Blood Count 2.15 K/ul (4.8-10.8)
[2022-07-17 07:01] LABS: Albumin Globulin Ratio 2.6 (0.9-2); Albumin Level 3.7 gm/dl (3.4-5.0); BUN Creatinine Ratio 15.1 (10-20); Bilirubin,Total 0.7 mg/dl (0.2-1.0); Creatinine Clr Calc Pharmacy 9.3 ml/min; Est GFR (African American) 14.2 ml/min; Est GFR (Non-African American) 12.2 ml/min; Globulin 1.4 gm/dl (2.5-4.0); Magnesium 2.5 mg/dl (1.7-2.4); Phosphorus 5.1 mg/dl (2.5-4.9); Potassium 4.6 mmol/L (3.5-5.1); Total Protein 5.1 gm/dl (6.0-8.3); Uric Acid 3.8 mg/dl (2.6-7.2)
[2022-07-17 07:10] LABS: Mean Corpuscular Hemoglobin 31.8 pg (25.0-34.0); Mean Corpuscular Hgb Conc 33.6 g/dL (32.0-36.0); Mean Corpuscular Volume 94.4 fL (80.0-100.0); RBC Morphology Unremarkable; RDW Coefficient of Variation 15.2 % (11.5-14.5); RDW Standard Deviation 52.3 fL (36.4-46.3); Red Blood Count 2.33 M/uL (3.93-5.22)
[2022-07-17] MEDS: ACYCLOVIR 400 MG TAB PO SCH (08:00)
[2022-07-17] MEDS: CALCIUM CARBONATE 1,250 MG/5 ML UDC PO SCH (08:01)
[2022-07-17] MEDS ORDERED: ATORVASTATIN 10 MG TAB PO SCH (09:00)
[2022-07-17] MEDS ORDERED: ANASTROZOLE 1 MG TAB PO SCH (09:00)
[2022-07-17] MEDS ORDERED: ASPIRIN 81 MG ECTAB PO SCH (09:00)
[2022-07-17] MEDS ORDERED: STAT IV STA (09:26)
[2022-07-17] MEDS ORDERED: CALCIUM GLUCONATE 10% 1,000 MG in DEXTROSE 5% 50 ML IV ONE (09:35)
[2022-07-17 10:16] LABS: Hematocrit (blood only) 24.1 % (34.1-44.9)
[2022-07-17] MEDS ORDERED: LENALIDOMIDE PO SCH (12:00)
--- NOTE | 2022-07-17 12:07 | Nephrology Progress Note ---
Date of Service July 17, 2022 Assessment & Plan (1) Hypocalcemia: Plan: critical hypocalcemia on arrival w/ Ca 6.1 responded to repletion IV and po. 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 >>she is only 2 wks into her tx for MM D stores labs pending -no further IV calcium given phos elevation -lowered po supplement to bid 1250 NEPHRO D/C RECS: -d/c on calcium carbonate 1250 mg bid x 7 days -after 7 days pt to ask nephro for next steps -needs labs q Mon/Thurs > BMP, mag, phos, calcium x 3 wks to be ordered by neph RN -needs [facility] appt w/ Dr Rojas in [place] or [place] early next week -will have her start following with CKD Extern as well (RN named Rachelle) who will be in touch w/ pt at d/c; medical case worker aware and will be in touch w/ pt early next week -OK to resume OP medications Care coordinated w/ Dr Nye (2) CKD (chronic kidney disease) stage 5, GFR less than 15 ml/min: Plan: technically she would not be CKD 5 for another week or so when she will be 3 mos w/ renal function in current range; that said, there is little chance of her renal function improving in any meaningful way more than likely at this point; best chance for renal recovery would be successful treatment of myeloma. -there had been discussion of a renal biopsy back in April -- need more information to evaluate that now; myeloma involves the kidney extremely frequ ently (at least 1/3 of the time) -daily bmp -no evidence that she needs a renal diet at this time but close to it >>>needs very close in follow up with OP osteopathic resident Dr Rojas and will facilitate this as well as connecting with CKD Case Mgt -- see above Admission and Anticipated Discharge Date Admission Date: July 16, 2022 Subjective had 1 gm calcium today iv; ca rebounded w/ repletion; anxious for d/c; no sob or weakness; no GI sx Review of Systems Review of Systems: All systems reviewed & are unremarkable except as noted in Subjective Physical Exam Constitutional: well developed, well nourished, + cachectic and cooperative; no acute distress Eyes: EOM intact bilaterally ENMT: Ears: no external ear abnormality Nose: no external nose abnormality Mouth: + dry oral mucous membranes Neck: no nuchal rigidity Respiratory: normal respiratory effort Auscultation: + diminished lung sounds Cardiovascular: Rate/Rhythm: regular rhythm and + tachycardic Extremities: no edema Gastrointestinal (Abdomen): Inspection/Auscultation: + abdomen distended (slight low anterior abdomen) and normal bowel sounds Percussion/Palpation: abdomen soft; abdomen nontender Musculoskeletal: Extremities: strength 5/5 throughout Skin: no rashes, warm and dry Psychiatric: A+Ox3, euthymic affect Results & Data ([facility]) Vital Signs (Past 12 Hours) Vital Signs Temp Pulse Pulse Resp BP Pulse Ox O2 Del Method 07/17/22 11:09 36.8 C 93 H 21 156/90 H 100 Room Air 07/17/22 07:36 36.9 C 92 H 20 153/82 H 100 Room Air 07/17/22 07:13 86 07/17/22 03:27 36.7 C 82 18 144/65 H 97 Room Air Laboratory Results 07/17/22 09:38 07/17/22 05:54
--- NOTE | 2022-07-17 13:21 | Hospitalist Progress Note ---
Date of Service July 17, 2022 Assessment & Plan (1) Hypocalcemia: (2) Hypomagnesemia with secondary hypocalcemia: (3) Multiple myeloma: (4) CKD (chronic kidney disease) stage 5, GFR less than 15 ml/min: (5) High cholesterol: Plan Patient is a 72 yr female with H/O HTN, HLD, history of breast cancer status post mastectomy/chemotherapy on chronic Arimidex therapy, multiple myeloma currently undergoing chemotherapy and prediabetes who presented to ER secondary to referral from oncology secondary to abnormal labs. Hypocalcemia Hypomagnesemia In setting of ESRD, multiple myeloma, osteoblastic metastasis, tumor lysis syndrome with ongoing chemotherapy PTH:339 25 OH Vitamin D: 66 TSH:2.6 Received IV Calcium gluconate Also received Magnesium supplement Appreciate Nephrology Input Needs follow up with Nephrology upon discharge Multiple Myeloma H/O Breast Cancer Follows Dr. Rocky Ramirez chemo 1 week ago On Darzalex, decadron and revlimid Patient is planned to be continued on revlimid for 6 more days to complete cycle Also on Arimidex for breast ca management Pancytopenia in setting of chemotherapy No plan for Transfusion currently Monitor CBC CKD IV Renal function stable avoid nephrotoxic agents Needs follow up with Nephrology upon discharge HLD continue statin DVT Px: SCDs Re:Anemia, thrombocytopenia Code Status DNR/DNI Admission and Anticipated Discharge Date Admission Date: July 16, 2022 Subjective Patient is seen and examined at bedside Offers no new complaints States feeling uncomfortable lying on the hospital bed Denies any chest pain, shortness breath, dizziness, nausea, abdominal pain, weakness Discussed with nephrology today Plan to discharge home today Review of Systems Review of Systems: All systems reviewed & are unremarkable except as noted in Subjective Physical Exam Physical Exam: Physical Exam: Vitals signs as noted above General Appearance:Thin, frail, chronic ill appearing, No apparent distress Head: normocephalic, Atraumatic Eyes: normal inspection, EOMI Neck: supple, Trachea midline Respiratory/Chest: Normal breath sounds, CTA, No accessory muscle use Cardiovascular: S1, S2, No murmur Abdomen/GI:Soft, Non tender, Bowel sounds present Extremities/Musculoskeletal:normal inspection, no edema Neurologic/Psych:AAOX3, grossly no focal neurological deficits Skin: normal color, warm Results & Data Results & Data ([facility]) Vital Signs (Past 12 Hours) Vital Signs Temp Pulse Pulse Resp BP Pulse Ox O2 Del Method 10/07/22 11:09 36.8 C 93 H 21 156/90 H 100 Room Air 07/17/22 07:36 36.9 C 92 H 20 153/82 H 100 Room Air 07/17/22 07:13 86 07/17/22 03:27 36.7 C 82 18 144/65 H 97 Room Air Laboratory Results Short CBC 07/17/22 07/17/22 Range/Units 05:54 09:38 WBC 2.15 L (4.8-10.8) K/ul Hgb 7.4 L 8.0 L (12.0-16.0) g/dl Hct 22.0 L 24.1 L (34.1-44.9) % Plt Count 46 L (130-400) K/uL BMP 07/16/22 07/16/22 07/17/22 14:27 17:44 05:54 Sodium 139 137 134 L Potassium 4.5 4.3 4.6 Chloride 111 H 107 106 Carbon Dioxide 17 L 17 L 17 L BUN 57 H 54 H 53 H Creatinine 3.62 H 3.57 H 3.51 H Glucose 96 81 78 Calcium 6.5 L 6.4 L 8.0 L Cardiac Enzymes 07/17/22 Range/Units 05:54 Total Creatine Kinase 30 (26-192) U/L Liver Function 07/17/22 Range/Units 05:54 Total Bilirubin 0.7 (0.2-1.0) mg/dl AST 12 L (13-39) U/L ALT 16 (7-52) U/L Alkaline Phosphatase 68 (34-104) U/L Albumin 3.7 (3.4-5.0) gm/dl (1) Multiple myeloma Multiple myeloma remission status: unspecified Qualified Code(s): C90.00 - Multiple myeloma not having achieved remission
--- NOTE | 2022-07-17 13:49 | Discharge Summary ---
Date of Service July 17, 2022 Admission HPI Per Admitting Provider This is a 72-year-old female who has significant past medical history of HTN, HLD, history of breast cancer status post mastectomy/chemotherapy on chronic Arimidex therapy, multiple myeloma currently undergoing chemotherapy and prediabetes who presented to ER secondary to referral from oncology secondary to abnormal labs. Patient follows with [facility] oncology and is undergoing current treatment for multiple myeloma. She currently takes Darzalex, Decadron and Revlimid. Her last chemo treatment was 1 week ago. She presented to oncology clinic today for next chemo treatment. Pretreatment blood work showed a critical low calcium at 6. She was referred to ED for calcium replacement. Patient's son-in-law is at bedside. Patient offers no complaints and is otherwise been feeling well. As of late she has had more energy, has been able to get out and walk and has had a otherwise good appetite. She denies any muscle cramping, generalized weakness, diarrhea or constipation. She further denies any recent illness, fever, chills, sweats, lightheadedness, dizziness, chest pain, shortness of breath, cough, nausea, vomiting, abdominal pain, change in bowel or urinary habits. In ED her calcium was 6.1 with an ionized calcium 0.81. She was ordered 2 g of calcium gluconate. Case was discussed with ED provider and weight checker who recommended overnight admission and observation. Admission Exam Per Admitting Provider Physical Exam Physical Exam: Constitutional: Thin, fraile, F, vitals as above, NAD, sitting up in bed, pleasant, conversing easily Head: Normocephalic, Atraumatic Eyes: PERRL, conjunctivae normal, anicteric sclerae ENMT: external ear and nose normal, oropharynx normal Neck: trachea midline, no thyromegaly normal visual inspection Respiratory: normal respiratory effort, lungs clear to auscultation, no wheeze, rales, rhonchi. Normal insp/exp effort, no accessory muscle use Cardiovascular: RRR, no murmur, no edema Vessels: no JVD or carotid bruit Chest: normal inspection of chest Abdomen: normal bowel sounds, soft, nontender, no hepatosplenomegaly Musculoskeletal: no cyanosis or clubbing, extremities motor strength 5/5 Skin: no rashes, warm and dry normal turgor Neurologic: PERRL, EOMI, accommodation nl, no face palsy, no dysarthria CN's II-XI intact bilaterally and moves all extremities Psychiatric: A+Ox3, euthymic affect Lymphatic: no cervical or axillary lymphadenopathy : deferred Principal Diagnosis Hypocalcemia Hypomagnesemia Pancytopenia Discharge Data Allergies Allergy/AdvReac Type Severity Reaction Status Date / Time No Known Allergies Allergy Unknown Verified 07/08/22 11:09 Consultations 07/16/22 13:10 ED Decision to Admit Stat 07/16/22 13:12 Consult Nephrology Routine Procedures Performed Laboratory Results WBC 2.15 K/ul (4.8-10.8) L 07/17/22 05:54 RBC 2.33 M/uL (3.93-5.22) L 07/17/22 05:54 Hgb 8.0 g/dl (12.0-16.0) L 07/17/22 09:38 Hct 24.1 % (34.1-44.9) L 07/17/22 09:38 MCV 94.4 fL (80.0-100.0) 07/17/22 05:54 MCH 31.8 pg (25.0-34.0) 07/17/22 05:54 MCHC 33.6 g/dL (32.0-36.0) 07/17/22 05:54 RDW Std Deviation 52.3 fL (36.4-46.3) H 07/17/22 05:54 RDW Coeff of [place] 15.2 % (11.5-14.5) H 07/17/22 05:54 Plt Count 46 K/uL (130-400) L 07/17/22 05:54 MPV 12.4 fL (9.4-12.3) H 07/17/22 05:54 Immature Gran % (Auto) 0.9 % 07/17/22 05:54 Neut % (Auto) 63.7 % 07/17/22 05:54 Lymph % (Auto) 20.0 % 07/17/22 05:54 [place] % (Auto) 13.5 % 07/17/22 05:54 Eos % (Auto) 1.4 % 07/17/22 05:54 Baso % (Auto) 0.5 % 07/17/22 05:54 Neut # (Auto) 1.37 K/uL (1.4-6.5) L 07/17/22 05:54 Lymph # (Auto) 0.43 K/uL (1.2-3.4) L 07/17/22 05:54 [place] # (Auto) 0.29 K/uL (0.24-0.82) 07/17/22 05:54 Eos # (Auto) 0.03 K/uL (0-0.50) 07/17/22 05:54 Baso # (Auto) 0.01 K/uL (0-0.2) 07/17/22 05:54 Immature Gran # (Auto) 0.02 K/uL (0.00-0.02) 07/17/22 05:54 RBC Morphology Unremarkable 07/17/22 05:54 Polychromasia 1+ 07/16/22 11:27 Anisocytosis Present 07/16/22 11:27 Sodium 134 mmol/L (136-145) L 07/17/22 05:54 Potassium 4.6 mmol/L (3.5-5.1) 07/17/22 05:54 Chloride 106 mmol/L (98-107) 07/17/22 05:54 Carbon Dioxide 17 mmol/L (21-32) L 07/17/22 05:54 Anion Gap 11 (3-11) 07/17/22 05:54 BUN 53 mg/dl (6-23) H 07/17/22 05:54 Creatinine 3.51 mg/dl (0.6-1.2) H 07/17/22 05:54 Est Cr Clr Drug Dosing 9.3 ml/min 07/17/22 05:54 Est GFR ( Amer) 14.2 ml/min 07/17/22 05:54 Est GFR (Non-Af Amer) 12.2 ml/min 07/17/22 05:54 BUN/Creatinine Ratio 15.1 (10-20) 07/17/22 05:54 Glucose 78 mg/dl (70-99(Fasting)) 07/17/22 05:54 Uric Acid 3.8 mg/dl (2.6-7.2) 07/17/22 05:54 Calcium 8.0 mg/dl (8.5-10.1) L 07/17/22 05:54 Ionized Calcium 1.12 mmol/L (1.12-1.32) 07/17/22 05:54 Phosphorus 5.1 mg/dl (2.5-4.9) H 07/17/22 05:54 Magnesium 2.5 mg/dl (1.7-2.4) H 07/17/22 05:54 Total Bilirubin 0.7 mg/dl (0.2-1.0) 07/17/22 05:54 AST 12 U/L (13-39) L 07/17/22 05:54 ALT 16 U/L (7-52) 07/17/22 05:54 Alkaline Phosphatase 68 U/L (34-104) 07/17/22 05:54 Total Creatine Kinase 30 U/L (26-192) 07/17/22 05:54 Total Protein 5.1 gm/dl (6.0-8.3) L 07/17/22 05:54 Albumin 3.7 gm/dl (3.4-5.0) 07/17/22 05:54 Globulin 1.4 gm/dl (2.5-4.0) L 07/17/22 05:54 Albumin/Globulin Ratio 2.6 (0.9-2) H 07/17/22 05:54 Amylase 106 U/L (25-115) 07/16/22 17:44 25-OH Vitamin D Total 66.0 ng/ml (30-100) 07/16/22 17:44 TSH 2.673 uIu/ml (0.300-4.500) 07/16/22 11:27 PTH Intact 339.5 pg/ml (12.0-88.0) H 07/16/22 11:27 SARS-CoV-2, RNA, NAAT NEGATIVE (NEGATIVE) 07/16/22 11:45 Blood Type O Positive 07/17/22 09:38 Antibody Screen POSITIVE A 07/17/22 09:38 Hospital Course (1) Hypocalcemia: (2) Hypomagnesemia with secondary hypocalcemia: (3) Multiple myeloma: (4) CKD (chronic kidney disease) stage 5, GFR less than 15 ml/min: (5) High cholesterol: Plan Patient is a 72 yr female with H/O HTN, HLD, history of breast cancer status post mastectomy/chemotherapy on chronic Arimidex therapy, multiple myeloma currently undergoing chemotherapy and prediabetes who presented to ER secondary to referral from oncology secondary to abnormal labs. Hypocalcemia Hypomagnesemia In setting of ESRD, multiple myeloma, osteoblastic metastasis, tumor lysis syndrome with ongoing chemotherapy PTH:339 25 OH Vitamin D: 66 TSH:2.6 Received IV Calcium gluconate Also received Magnesium supplement Appreciate Nephrology Input Needs follow up with Nephrology upon discharge Multiple Myeloma H/O Breast Cancer Follows Dr. Hidalgo Last chemo 1 week ago On Darzalex, decadron and revlimid Patient is planned to be continued on revlimid for 6 more days to complete cycle Also on Arimidex for breast ca management Pancytopenia in setting of chemotherapy No plan for Transfusion currently Monitor CBC CKD IV Renal function stable avoid nephrotoxic agents Needs follow up with Nephrology upon discharge HLD continue statin Severe Protein Calorie Malnutrition BMI 16 DVT Px: SCDs Re:Anemia, thrombocytopenia Code Status DNR/DNI Total Time Total Time Spent Total Time Spent (In Minutes): 40 minutes Discharge Plan Discharge Items Patient Disposition: Home - Self-Care Reason For Visit: HYPOCALCEMIA Discharge Diagnosis: Hypocalcemia Hypomagnesemia Pancytopenia Activity: Per Instructions section Exercise/Sports: Gradually increase as tolerated Non-emergency contact: Primary Care Provider and Patient Safety Manager Call non-emergency contact if: you have any medication questions, your symptoms worsen, your pain is concerning for you and you have a fever Follow-up/Referrals: Amelia Tucker DO [Primary Care Provider] - (Date & Time 07/24/2022 12:20 PM Provider Amelia Tuckre DO Department [facility] ) Cheli Rojas MD [Physician] - (Date & Time 07/21/2022 11:20 AM Provider Cheli Rojas MD Department Nephrology, [facility] Date & Time 07/21/2022 11:20 AM Provider Cheli Rojas MD Department Nephrology, [address] [address] ) Diet: Heart Healthy Addtl Attending Provider Instructions: Follow-up with your primary care physician on 07/24/2022 12:20 PM Follow up with your Patient Safety Manager on 07/21/2022 11:20 AM as scheduled --- Start taking calcium gluconate 1250 mg twice a day for 7 days as recommended by your weight checker --Obtain blood test (basic metabolic panel, magnesium, phosphorus, calcium) next week and follow up with your weight checker for further recommendations. Seek immediate medical attention if your symptoms reoccur or worsen Please take all medications as instructed on discharge list below. Please call if you have any questions or problems. You can reach a [facility] hospitalist on duty at [facility] 24 hours a day by calling [phone] Pending Studies at Discharge: No Stand-Alone Forms: My [facility], Smoking Cessation Medications and DC Order Prescriptions: New calcium carbonate 500 mg calcium (1,250 mg) tablet 500 mg PO BID Qty: 14 0RF Continued anastrozole [Arimidex] 1 mg tablet 1 mg PO DAILY atorvastatin 10 mg tablet 10 mg PO QAM ondansetron HCl 4 mg tablet 4 mg PO Q6 PRN (Reason: Nausea) oxycodone-acetaminophen 5-325 mg tablet 1 tab PO Q6 PRN (Reason: Pain, Moderate) acyclovir 400 mg tablet 400 mg PO BID dexamethasone 4 mg tablet 40 mg PO WK mirtazapine 15 mg tablet 15 mg PO HS lenalidomide 5 mg Capsule 5 mg PO DAILY@1245 Rx Instructions: swallow whole with glass of water; do not open, crush, chew , break, or dissolve take for 21 of 28 days Has 6 more days in this cycle, pt has brought own supply aspirin [Aspir-81] 81 mg Tablet,Delayed Release (Dr/Ec) 81 mg PO DAILY Discharge Orders: Discharge Order (Routine); Ordered 07/17/22 Ordered By: Ron Nye Admission Data Admit Date/Time: 07/16/22 13:13 Attending Provider: Ron Nye Admit Provider: Ron Nye Primary Care Provider: Amelia Tucker Other Providers: Ron Nye ; Dodie Menjivar
[2022-07-17] MEDS ORDERED: CALCIUM CARBONATE 1,250 MG/5 ML UDC PO SCH (21:00)
[2022-07-21 21:37] LABS: Vitamin D 1,25 32 pg/mL (18-72); Vitamin D3,1,25 32 pg/mL
== END 2022-07-17 15:14 | disposition home or self-care (01) | DRG 640 ==
LOC: ED 10:08 → EDINP 13:13 → 2W 18:48

== ENCOUNTER 2022-07-30 17:22 | Inpatient (IN) ==
[2022-07-30 19:41] LABS: BUN Creatinine Ratio 16.5 (10-20); Bilirubin,Total 0.4 mg/dl (0.2-1.0); Calcium 6.1 mg/dl (8.5-10.1); Creatinine Clr Calc Pharmacy 7.7 ml/min; Est GFR (African American) 11.5 ml/min; Est GFR (Non-African American) 9.9 ml/min; Potassium 3.3 mmol/L (3.5-5.1)
[2022-07-30 19:45] LABS: Hematocrit (blood only) 19.1 % (34.1-44.9); Hemoglobin 6.6 g/dl (12.0-16.0); Mean Corpuscular Hgb Conc 34.6 g/dL (32.0-36.0); Mean Corpuscular Volume 92.7 fL (80.0-100.0); Mean Platelet Volume 11.1 fL (9.4-12.3); Platelet Count 101 K/uL (130-400); RDW Coefficient of Variation 14.4 % (11.5-14.5); RDW Standard Deviation 47.5 fL (36.4-46.3); Red Blood Count 2.06 M/uL (3.93-5.22); White Blood Count 1.08 K/ul (4.8-10.8)
[2022-07-30 19:46] LABS: Basophils # (auto) 0.01 K/uL (0-0.2); Basophils % (auto) 0.9 %; Immature Granulocytes # (auto) 0.03 K/uL (0.00-0.02); Immature Granulocytes % (auto) 2.8 %; Lymphocytes # (auto) 0.17 K/uL (1.2-3.4); Lymphocytes % (auto) 15.7 %; Monocytes # (auto) 0.09 K/uL (0.24-0.82); Monocytes % (auto) 8.3 %; Neutrophils # (auto) 0.78 K/uL (1.4-6.5); Neutrophils % (auto) 72.3 %; Ovalocytes 1+
[2022-07-30] MEDS ORDERED: SODIUM CHLORIDE 0.9% 250 ML IV PRN ×2 (20:01)
[2022-07-30] MEDS ORDERED: SODIUM CHLORIDE 0.9% 1000ML 1,000 ML IV ONE (20:22)
--- NOTE | 2022-07-30 20:23 | Emergency Department Note ---
Impression & Plan Hypocalcemia ADMIT ED Provider Note HPI: The patient is a 72-year-old female with history of multiple myeloma, currently on chemotherapy, presents the emergency department with abnormal outpatient lab work showing hypocalcemia. Patient was referred by her burning machine operator. On arrival to the ED the patient is hemodynamically stable, she is frail-appearing however she is saturating well on room air and she is alert, she denies any focal complaints of pain. ROS: -General: Abnormal outpatient lab work *10 point review systems was conducted and is otherwise negative unless stated above *Outpatient medications and allergy history reviewed PE: General: Alert, frail-appearing HEENT: Normocephalic, trachea midline Eyes: Extraocular eye movement is intact, no scleral erythema Pulmonary: Clear to auscultation bilaterally, no wheezing Cardio: Regular rate and rhythm GI: Abdomen is soft, nontender : No suprapubic tenderness MSK: No evidence of trauma or malformation of the extremities, no edema Skin: No evidence of rash Neuro: Alert, no focal deficits Psychiatric: Cooperative environmental monitoring technician: - An order was placed for continuous cardiac monitoring - Patient was noted to be in sinus rhythm with a rate of 80 EKG: Rate: 88 Rhythm: Normal sinus rhythm Intervals: QTC 493, otherwise within normal limits ST changes: No ST elevation Time: 1855 Interventions provided in ED: -IV calcium, IV normal saline bolus Medical Decision Making: Patient presented to the emergency department with abnormal outpatient lab work per her burning machine operator. On arrival to the ED the patient is in no acute distress, lab work obtained here in the ED does show multiple metabolic derangements including anemia at 6.6, leukopenia, hypocalcemia at 6.1, hypomagnesemia, hyponatremia. IV calcium as well as IV fluid bolus was ordered, patient was ordered packed red blood cells however I was informed by the lab that the patient has antibodies and will require blood to be transferred from [place], therefore this will not be available until likely tomorrow morning. Patient is otherwise hemodynamically stable here and denies any evidence of recent acute blood loss. Hyponatremia appears to be new, patient does not appear to be volume overloaded on my exam, question dehydration with acute kidney injury with creatinine increasing today to 4.19, trial of normal saline bolus was therefore ordered. Magnesium repletion was ordered by the hospitalist service on my reassessment patient is resting comfortably in bed, I discussed the above findings with the on-call hospitalist, Dr. Yanes, who accepted the patient to a telemetry bed for further management. * CRITICAL CARE TIME: (35) minutes -Time spent at the bedside independent of any procedures and management of patient with complex medical issues including electrolyte derangements requiring IV repletion, anemia with hemoglobin less than 7.0 requiring packed red blood cell transfusion to be ordered, discussion with other physicians and arrangement of admission Diagnosis: 1. Anemia 2. Hypocalcemia 3. Hypomagnesemia 4. Hyponatremia 5. History of multiple myeloma, on chemotherapy Disposition: Admission Maverick Galvan DO Emergency Medicine Past Med/Surg History Medical History (Updated 07/30/22 @ 23:47 by Maverick Galvan DO) Breast cancer CKD (chronic kidney disease), stage V High cholesterol Hypercalcemia Hypertension Hypokalemia Multiple myeloma Surgical History History of partial mastectomy of left breast Family History (Updated 07/16/22 @ 13:29 by Maliha Guerin PA-C) Brother Cancer Pancreatic Sister Cancer Lymphoma Family/Other Cancer Niece with breast cancer at age 40 (mother had lymphoma) Uncle Cancer Brain Mother Diabetes Father Heart disease Other Cystic kidney disease Social History Smoking Status: Never smoker Hx Alcohol Use: No Hx Substance Use: No Preferred Language: Azerbaijani Communication Ability: Effective Plate Shear Operator Required: No Beliefs That Will Affect Care: None marital status: / Current Living Situation: Alone How many Children do You have: 2 Feels Safe at Home: Yes Assistive Devices: Cane Allergies Allergies Allergy/AdvReac Type Severity Reaction Status Date / Time No Known Allergies Allergy Unknown Verified 07/30/22 21:59 Home Meds Home Medications Medication Instructions Recorded Confirmed anastrozole 1 mg tablet (Arimidex) 1 mg PO QAM 03/18/22 07/30/22 atorvastatin 10 mg tablet 10 mg PO QAM 03/18/22 07/30/22 oxycodone-acetaminophen 5 mg-325 1 tab PO Q6 PRN Pain, Moderate 05/23/22 mg tablet aspirin 81 mg tablet,delayed 81 mg PO QAM 07/16/22 07/30/22 release dexamethasone 4 mg tablet 40 mg PO WK 07/16/22 07/30/22 lenalidomide 5 mg capsule 5 mg PO QAM 07/16/22 07/30/22 mirtazapine 15 mg tablet 15 mg PO HS 07/16/22 07/30/22 acyclovir 400 mg tablet 400 mg PO AMHS 07/30/22 07/30/22 calcitriol 0.25 mcg capsule 0.25 mcg PO QAM 07/30/22 07/30/22 ondansetron HCl 8 mg tablet 8 mg PO Q8 PRN Nausea 07/30/22 07/30/22 Previous Rx's Medication Instructions Recorded calcium carbonate 500 mg calcium 500 mg PO BID #14 tabs 07/17/22 (1,250 mg) tablet Results & Data (ED) Vital Signs Vital Signs - 24 hr 07/30/22 17:58 07/30/22 20:41 07/30/22 22:00 Temperature 36.5 C Temperature Source Temporal Artery Scan Pulse Rate 105 H Pulse Rate [Radial] 76 78 Pulse Rhythm [Radial] Regular Regular Pulse Strength [Radial] Normal Normal Respiratory Rate 20 16 18 Respiratory Effort / Characteristics Non-Labored Non-Labored Spontaneous Non-Labored Spontaneous Respiratory Depth Normal Normal Normal Respiratory Pattern Regular Regular Blood Pressure 112/71 Blood Pressure [Right Arm] 154/91 H 140/79 Blood Pressure Mean 84 Blood Pressure Mean [Right Arm] 112 99 Blood Pressure Position [Right Arm] Lying Lying Pulse Oximetry 99 99 99 Oxygen Delivery Method Room Air Room Air Room Air Sepsis Recent Fever Within 48 Hours No Sepsis New/Unexplained Change in Mental Status No Sepsis Action Taken by Nursing No Action Required Laboratory Data Result diagrams: 07/30/22 18:55 07/30/22 18:55 Lab Results 07/30/22 07/30/22 07/30/22 Range/Units 18:55 18:55 20:20 WBC 1.08 L (4.8-10.8) K/ul RBC 2.06 L (3.93-5.22) M/uL Hgb 6.6 L* (12.0-16.0) g/dl Hct 19.1 L* (34.1-44.9) % MCV 92.7 (80.0-100.0) fL MCH 32.0 (25.0-34.0) pg MCHC 34.6 (32.0-36.0) g/dL RDW Std Deviation 47.5 H (36.4-46.3) fL RDW Coeff of Brandon 14.4 (11.5-14.5) % Plt Count 101 L (130-400) K/uL MPV 11.1 (9.4-12.3) fL Immature Gran % (Auto) 2.8 % Neut % (Auto) 72.3 % Lymph % (Auto) 15.7 % [place] % (Auto) 8.3 % Eos % (Auto) 0.0 % Baso % (Auto) 0.9 % Neut # (Auto) 0.78 L* (1.4-6.5) K/uL Lymph # (Auto) 0.17 L (1.2-3.4) K/uL [place] # (Auto) 0.09 L (0.24-0.82) K/uL Eos # (Auto) 0.00 (0-0.50) K/uL Baso # (Auto) 0.01 (0-0.2) K/uL Immature Gran # (Auto) 0.03 H (0.00-0.02) K/uL Ovalocytes 1+ Sodium 125 L (136-145) mmol/L Potassium 3.3 L (3.5-5.1) mmol/L Chloride 94 L (98-107) mmol/L Carbon Dioxide 16 L (21-32) mmol/L Anion Gap 15 H (3-11) BUN 69 H (6-23) mg/dl Creatinine 4.19 H (0.6-1.2) mg/dl Est Cr Clr Drug Dosing 7.7 ml/min Est GFR ( Amer) 11.5 ml/min Est GFR (Non-Af Amer) 9.9 ml/min BUN/Creatinine Ratio 16.5 (10-20) Glucose 216 H (70-99(Fasting)) mg/dl Calcium 6.1 L (8.5-10.1) mg/dl Magnesium (1.7-2.4) mg/dl Total Bilirubin 0.4 (0.2-1.0) mg/dl AST 13 (13-39) U/L ALT 14 (7-52) U/L Alkaline Phosphatase 110 H (34-104) U/L Total Protein 6.0 (6.0-8.3) gm/dl Albumin 4.0 (3.4-5.0) gm/dl Globulin 2.0 L (2.5-4.0) gm/dl Albumin/Globulin Ratio 2.0 (0.9-2) SARS-CoV-2, RNA, NAAT (NEGATIVE) Blood Type Cancelled Antibody Screen Cancelled Crossmatch See Detail 07/30/22 07/30/22 Range/Units 20:20 20:39 WBC (4.8-10.8) K/ul RBC (3.93-5.22) M/uL Hgb (12.0-16.0) g/dl Hct (34.1-44.9) % MCV (80.0-100.0) fL MCH (25.0-34.0) pg MCHC (32.0-36.0) g/dL RDW Std Deviation (36.4-46.3) fL RDW Coeff of [place] (11.5-14.5) % Plt Count (130-400) K/uL MPV (9.4-12.3) fL Immature Gran % (Auto) % Neut % (Auto) % Lymph % (Auto) % [place] % (Auto) % Eos % (Auto) % Baso % (Auto) % Neut # (Auto) (1.4-6.5) K/uL Lymph # (Auto) (1.2-3.4) K/uL [place] # (Auto) (0.24-0.82) K/uL Eos # (Auto) (0-0.50) K/uL Baso # (Auto) (0-0.2) K/uL Immature Gran # (Auto) (0.00-0.02) K/uL Ovalocytes Sodium (136-145) mmol/L Potassium (3.5-5.1) mmol/L Chloride (98-107) mmol/L Carbon Dioxide (21-32) mmol/L Anion Gap (3-11) BUN (6-23) mg/dl Creatinine (0.6-1.2) mg/dl Est Cr Clr Drug Dosing ml/min Est GFR ( Amer) ml/min Est GFR (Non-Af Amer) ml/min BUN/Creatinine Ratio (10-20) Glucose (70-99(Fasting)) mg/dl Calcium (8.5-10.1) mg/dl Magnesium 1.2 L (1.7-2.4) mg/dl Total Bilirubin (0.2-1.0) mg/dl AST (13-39) U/L ALT (7-52) U/L Alkaline Phosphatase (34-104) U/L Total Protein (6.0-8.3) gm/dl Albumin (3.4-5.0) gm/dl Globulin (2.5-4.0) gm/dl Albumin/Globulin Ratio (0.9-2) SARS-CoV-2, RNA, NAAT NEGATIVE (NEGATIVE) Blood Type Antibody Screen Crossmatch Administered Medications Magnesium Sulfate/Dextrose (Magnesium Sulfate / D5w) 1 gm in 100 mls @ 50 mls/hr IV Q2H JEFE Stop: 07/31/22 03:44 Last Admin: 07/30/22 22:07 Dose: 50 mls/hr Documented By: SHALINI Discontinued Medications Calcium Gluconate () 1,000 mg in 60 mls @ 240 mls/hr IV Q15M JEFE Stop: 07/30/22 20:44 Last Infusion: 07/30/22 21:29 Dose: 0 mls/hr Documented By: Admin: 07/30/22 21:06 Dose: 240 mls/hr Documented By: Infusion: 07/30/22 21:05 Dose: 0 mls/hr Documented By: Admin: 07/30/22 20:36 Dose: 240 mls/hr Documented By: SHALINI Sodium Chloride (Nss 1000ml) 1,000 mls @ 999 mls/hr IV .Q1H1M ONE Stop: 07/30/22 21:22 Last Admin: 07/30/22 22:04 Dose: 999 mls/hr Documented By: SHALINI Potassium Chloride (Potassium Chloride Crtab 20 Meq Tabcr) 40 meq PO NOW STA Stop: 07/30/22 21:42 Last Admin: 07/30/22 22:04 Dose: 40 meq Documented By: SHALINI Discharge Plan Visit Data Chief Complaint: Abnormal Labs/Diagnostic Testing Stated Complaint: DR GILLESPIE REFERRED FOR CALCIUM INFUSION ED Provider: Maverick Galvan Discharge Problem: Hypocalcemia Patient Disposition: Admitted As Inpatient Forms Stand Alone Forms: My [facility] Prescriptions Prescriptions: No Action anastrozole [Arimidex] 1 mg tablet 1 mg PO QAM atorvastatin 10 mg tablet 10 mg PO QAM acyclovir 400 mg tablet 400 mg PO AMHS calcitriol 0.25 mcg capsule 0.25 mcg PO QAM ondansetron HCl 8 mg tablet 8 mg PO Q8 PRN (Reason: Nausea) oxycodone-acetaminophen 5-325 mg tablet 1 tab PO Q6 PRN (Reason: Pain, Moderate) dexamethasone 4 mg tablet 40 mg PO WK Rx Instructions: 10 tablet dose mirtazapine 15 mg tablet 15 mg PO HS lenalidomide 5 mg Capsule 5 mg PO QAM Rx Instructions: take 21 out of 28 days aspirin 81 mg Tablet,Delayed Release (Dr/Ec) 81 mg PO QAM calcium carbonate 500 mg calcium (1,250 mg) tablet 500 mg PO BID Qty: 14 0RF Referrals Referrals: Amelia Tucker DO [Primary Care Provider] -
[2022-07-30] MEDS: CALCIUM GLUCONATE 1,000 MG/60 ML BAG IV SCH ×2 (20:36→21:06)
[2022-07-30] MEDS ORDERED: POTASSIUM CHLORIDE CRTAB 20 MEQ TABCR PO STA (21:41)
[2022-07-30] MEDS: MAGNESIUM SULFATE / D5W 1 GM/100 ML BAG IV SCH (22:07)
[2022-07-31] MEDS ORDERED: LACTATED RINGER'S 1,000 ML IV STA (00:17)
--- NOTE | 2022-07-31 00:24 | History & Physical Report ---
Date of Service July 31, 2022 Assessment & Plan (1) Hypocalcemia: Plan: Recurrent hypocalcemia, hypomagnesemia In the setting of renal osteodystrophy/ESRD/multiple myeloma ongoing chemotherapy Hyponatremia, AGMA secondary to illness Hypokalemia secondary to decreased p.o. intake hypertension, BP stable, currently not on maintenance medications hyperlipidemia on statin Rx Pancytopenia secondary to chemotherapy, hemoglobin drop from baseline, no evidence of overt bleed left breast cancer status post surgery on Arimidex Steroid-induced hyperglycemia rule out DM Malnutrition, low BMI secondary to illness Medical telemetry Replace electrolytes Baseline UA, gentle hydration Hyponatremia work-up Nephrology consult Re: Recurrent hypocalcemia, ESRD, hyponatremia Transfuse PRBC to maintain hemoglobin above 7 Nutrition consult RE low BMI Check hemoglobin A1c DVT prophylaxis. SCDs Re: Thrombocytopenia DNR Text document was generated using [employer] voice recognition software. It may contain grammatical or spelling errors. Kindly contact undersigned for clarification of any documentation item in question. History of Present Illness Chief Complaint: Abnormal blood work Primary Care Provider: Amelia Tucker, History obtained from patient and records. Medical history significant for hypertension, hyperlipidemia, multiple myeloma currently on chemotherapy, chronic anemia (baseline hemoglobin 7-8), ESRD,, left breast cancer status post surgery/chemotherapy on Arimidex. Recent confinement 2 weeks ago for hypocalcemia and hypomagnesemia Patient evaluated by Nephrology during confinement. 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 Outpatient blood work requested by casino floor person following outpatient visit 10 days ago. Abnormal outpatient labs resulted yesterday. WBC 1.58, hemoglobin of 7, platelets of 98 Serum ionized calcium of 0.86, sodium 133, potassium 2.7, creatinine of 3.9 Patient denies chest pain, SOB, abdominal pain, black/bloody stools, diarrhea. Poor appetite and progressive weight loss as per patient Patient directed to ER for evaluation. 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 Allergies Allergy/AdvReac Type Severity Reaction Status Date / Time No Known Allergies Allergy Unknown Verified 07/30/22 21:59 Home Medications Medication Instructions Recorded Confirmed Type anastrozole 1 mg tablet (Arimidex) 1 mg PO QAM 03/18/22 07/30/22 History atorvastatin 10 mg tablet 10 mg PO QAM 03/18/22 07/30/22 History oxycodone-acetaminophen 5 mg-325 1 tab PO Q6 PRN Pain, Moderate 05/23/22 07/30/22 History mg tablet aspirin 81 mg tablet,delayed 81 mg PO QAM 07/16/22 07/30/22 History release dexamethasone 4 mg tablet 40 mg PO WK 07/16/22 07/30/22 History lenalidomide 5 mg capsule 5 mg PO QAM 07/16/22 07/30/22 History mirtazapine 15 mg tablet 15 mg PO HS 07/16/22 07/30/22 History calcium carbonate 500 mg calcium 500 mg PO BID #14 tabs 07/17/22 07/30/22 Rx (1,250 mg) tablet acyclovir 400 mg tablet 400 mg PO AMHS 07/30/22 07/30/22 History calcitriol 0.25 mcg capsule 0.25 mcg PO QAM 07/30/22 07/30/22 History ondansetron HCl 8 mg tablet 8 mg PO Q8 PRN Nausea 07/30/22 07/30/22 History Past Med/Surg History Medical History (Updated 07/30/22 @ 23:47 by Maverick Galvan DO) Breast cancer CKD (chronic kidney disease), stage V High cholesterol Hypercalcemia Hypertension Hypokalemia Multiple myeloma Surgical History History of partial mastectomy of left breast Family History (Updated 07/16/22 @ 13:29 by Maliha Guerin PA-C) Brother Cancer Pancreatic Sister Cancer Lymphoma Family/Other Cancer Niece with breast cancer at age 40 (mother had lymphoma) Uncle Cancer Brain Mother Diabetes Father Heart disease Other Cystic kidney disease Social History Smoking Status: Never smoker Hx Alcohol Use: No Hx Substance Use: No Preferred Language: Moroccan Communication Ability: Effective Him Clerk Required: No Beliefs That Will Affect Care: None marital status: / Current Living Situation: Alone How many Children do You have: 2 Feels Safe at Home: Yes Safety Concerns: Feels Safe At This Time Assistive Devices: Cane and Glasses Review of Systems Review of Systems: As per HPI, all other systems reviewed and negative Physical Exam Physical Exam: GENERAL: Comfortable, underweight, no respiratory distress SKIN: Pallor , warm HEENT: Pale palpebral conjunctivae, no ptosis, dry buccal mucosa NECK : Supple, no tenderness CHEST : CTA, no tenderness HEART : RRR, no obvious murmurs ABDOMEN: no distention, nontender EXTREMITIES : No LE swelling/tenderness, no other conspicuous deformities noted NEUROLOGIC : Coherent, no facial asymmetry, no other gross focality Results & Data Results & Data ([facility]) Vital Signs (Past 12 Hours) Vital Signs Temp Pulse Pulse Resp BP BP Pulse Ox 07/31/22 00:02 74 16 131/76 99 07/30/22 22:00 78 18 140/79 99 07/30/22 20:41 76 16 154/91 H 99 07/30/22 17:58 36.5 C 105 H 20 112/71 99 O2 Del Method 07/31/22 00:02 Room Air 07/30/22 22:00 Room Air 07/30/22 20:41 Room Air 07/30/22 17:58 Room Air Laboratory Results Laboratory Results WBC 1.08 K/ul (4.8-10.8) L 07/30/22 18:55 RBC 2.06 M/uL (3.93-5.22) L 07/30/22 18:55 Hgb 6.6 g/dl (12.0-16.0) L* 07/30/22 18:55 Hct 19.1 % (34.1-44.9) L* 07/30/22 18:55 MCV 92.7 fL (80.0-100.0) 07/30/22 18:55 MCH 32.0 pg (25.0-34.0) 07/30/22 18:55 MCHC 34.6 g/dL (32.0-36.0) 07/30/22 18:55 RDW Std Deviation 47.5 fL (36.4-46.3) H 07/30/22 18:55 RDW Coeff of Brandon 14.4 % (11.5-14.5) 07/30/22 18:55 Plt Count 101 K/uL (130-400) L 07/30/22 18:55 MPV 11.1 fL (9.4-12.3) 07/30/22 18:55 Immature Gran % (Auto) 2.8 % 07/30/22 18:55 Neut % (Auto) 72.3 % 07/30/22 18:55 Lymph % (Auto) 15.7 % 07/30/22 18:55 [place] % (Auto) 8.3 % 07/30/22 18:55 Eos % (Auto) 0.0 % 07/30/22 18:55 Baso % (Auto) 0.9 % 07/30/22 18:55 Neut # (Auto) 0.78 K/uL (1.4-6.5) L* 07/30/22 18:55 Lymph # (Auto) 0.17 K/uL (1.2-3.4) L 07/30/22 18:55 [place] # (Auto) 0.09 K/uL (0.24-0.82) L 07/30/22 18:55 Eos # (Auto) 0.00 K/uL (0-0.50) 07/30/22 18:55 Baso # (Auto) 0.01 K/uL (0-0.2) 07/30/22 18:55 Immature Gran # (Auto) 0.03 K/uL (0.00-0.02) H 07/30/22 18:55 Ovalocytes 1+ 07/30/22 18:55 Sodium 125 mmol/L (136-145) L 07/30/22 18:55 Potassium 3.3 mmol/L (3.5-5.1) L 07/30/22 18:55 Chloride 94 mmol/L (98-107) L 07/30/22 18:55 Carbon Dioxide 16 mmol/L (21-32) L 07/30/22 18:55 Anion Gap 15 (3-11) H 07/30/22 18:55 BUN 69 mg/dl (6-23) H 07/30/22 18:55 Creatinine 4.19 mg/dl (0.6-1.2) H 07/30/22 18:55 Est Cr Clr Drug Dosing 7.7 ml/min 07/30/22 18:55 Est GFR ( Amer) 11.5 ml/min 07/30/22 18:55 Est GFR (Non-Af Amer) 9.9 ml/min 07/30/22 18:55 BUN/Creatinine Ratio 16.5 (-20) 07/30/22 18:55 Glucose 216 mg/dl (70-99(Fasting)) H 07/30/22 18:55 Calcium 6.1 mg/dl (8.5-10.1) L 07/30/22 18:55 Magnesium 1.2 mg/dl (1.7-2.4) L 07/30/22 20:20 Total Bilirubin 0.4 mg/dl (0.2-1.0) 07/30/22 18:55 AST 13 U/L (13-39) 07/30/22 18:55 ALT 14 U/L (7-52) 07/30/22 18:55 Alkaline Phosphatase 110 U/L (34-104) H 07/30/22 18:55 Total Protein 6.0 gm/dl (6.0-8.3) 07/30/22 18:55 Albumin 4.0 gm/dl (3.4-5.0) 07/30/22 18:55 Globulin 2.0 gm/dl (2.5-4.0) L 07/30/22 18:55 Albumin/Globulin Ratio 2.0 (0.9-2) 07/30/22 18:55 SARS-CoV-2, RNA, NAAT NEGATIVE (NEGATIVE) 07/30/22 20:39 Blood Type Cancelled 07/30/22 20:20 Antibody Screen Cancelled 07/30/22 20:20 Crossmatch See Detail 07/30/22 20:20 Diagnostic Findings Chest x-ray as per interpretation cardiomegaly, atelectasis EKG as per my interpretation : Rate 90, NSR, normal axis, T wave abnormality septal leads
[2022-07-31] MEDS ORDERED: oxyCODONE HCL IR 5 MG TAB (IMMEDIATE RELEASE) PO PRN (00:27)
[2022-07-31] MEDS ORDERED: PROMETHAZINE HCL 6.25 MG in SODIUM CHLORIDE 0.9% 50 ML IV PRN (00:27)
[2022-07-31] MEDS: MAGNESIUM SULFATE / D5W 1 GM/100 ML BAG IV SCH ×2 (00:29→02:16)
[2022-07-31] MEDS: MIRTAZAPINE TAB 15 MG TAB PO SCH ×2 (03:14→20:09)
[2022-07-31] MEDS ORDERED: SODIUM CHLORIDE 0.9% 250 ML IV PRN (03:36)
[2022-07-31 05:41] LABS: Base Excess VBG -11.5 mEq/L; HCO3 VBG 14 mmol/L; Oxygen Saturation VBG < 60.0 %; PCO2 VBG 32 mmHg (38-50); PO2 VBG 24 mmHg; pH VBG 7.26 (7.36-7.41)
[2022-07-31 06:03] LABS: BUN Creatinine Ratio 18.3 (10-20); Calcium 6.7 mg/dl (8.5-10.1); Creatinine Clr Calc Pharmacy 8.9 ml/min; Est GFR (Non-African American) 11.2 ml/min; Magnesium 2.3 mg/dl (1.7-2.4); Potassium 3.8 mmol/L (3.5-5.1)
[2022-07-31 06:09] LABS: Hematocrit (blood only) 18.3 % (34.1-44.9); Hemoglobin 6.3 g/dl (12.0-16.0); Mean Corpuscular Hemoglobin 31.5 pg (25.0-34.0); Mean Corpuscular Hgb Conc 34.4 g/dL (32.0-36.0); Mean Corpuscular Volume 91.5 fL (80.0-100.0); Mean Platelet Volume 11.8 fL (9.4-12.3); Platelet Count 105 K/uL (130-400); RDW Coefficient of Variation 14.4 % (11.5-14.5); RDW Standard Deviation 46.9 fL (36.4-46.3); White Blood Count 1.79 K/ul (4.8-10.8)
[2022-07-31 06:30] LABS: Basophils # (auto) 0.01 K/uL (0-0.2); Basophils % (auto) 0.6 %; Immature Granulocytes # (auto) 0.01 K/uL (0.00-0.02); Immature Granulocytes % (auto) 0.6 %; Lymphocytes # (auto) 0.21 K/uL (1.2-3.4); Lymphocytes % (auto) 11.7 %; Monocytes # (auto) 0.39 K/uL (0.24-0.82); Monocytes % (auto) 21.8 %; Neutrophils # (auto) 1.17 K/uL (1.4-6.5); Neutrophils % (auto) 65.3 %; Ovalocytes 1+
[2022-07-31] MEDS ORDERED: STAT IV STA ×2 (06:40→11:30)
[2022-07-31] MEDS ORDERED: CALCIUM GLUCONATE 10% 1,000 MG in DEXTROSE 5% 50 ML IV STA (06:48)
[2022-07-31] MEDS: CALCITRIOL 0.25 MCG CAPSULE PO SCH (08:12)
[2022-07-31] MEDS: ASPIRIN 81 MG ECTAB PO SCH (08:12)
[2022-07-31] MEDS: ACYCLOVIR 400 MG TAB PO SCH ×2 (08:12→20:10)
[2022-07-31] MEDS: ATORVASTATIN 10 MG TAB PO SCH (08:12)
[2022-07-31 08:49] LABS: Appearance Urine Clear (Clear); Bilirubin Urine Negative (Negative); Blood Urine Negative (Negative); Color Urine Yellow; Glucose Urine UA Trace (Negative); Ketones Urine Negative (Negative); Leukocyte Esterase Urine Negative (Negative); Nitrite Urine Negative (Negative); Protein Urine Negative (Negative); Specific Gravity Urine 1.006 (1.000-1.030); Urobilinogen Urine Negative (Negative)
[2022-07-31] MEDS ORDERED: CALCIUM CARBONATE 1250MG TAB PO SCH (09:00)
[2022-07-31] MEDS ORDERED: POLYETHYLENE (MIRALAX) 17 GM PACK PO PRN (09:00)
[2022-07-31] MEDS ORDERED: DOCUSATE SODIUM 100 MG CAP PO PRN (09:00)
--- NOTE | 2022-07-31 09:02 | Electrocardiogram Report ---
Test Reason : Blood Pressure : / mmHG Vent. Rate : 088 BPM Atrial Rate : 088 BPM P-R Int : 174 ms QRS Dur : 078 ms QT Int : 408 ms P-R-T Axes : 059 022 063 degrees QTc Int : 493 ms Poor data quality, interpretation may be adversely affected Normal sinus rhythm Left atrial enlargement Prolonged QT Nonspecific T wave abnormality Septal leads Abnormal ECG When compared with ECG of 16-JUL-2022 11:39, Nonspecific T wave abnormality Septal leads now present Confirmed by Emre Guerin ([id number]) on 07/31/2022 9:01:52 AM Referred By: REFERRED SELF Confirmed By:Emre Guerin
--- NOTE | 2022-07-31 10:02 | XRay Report ---
XR chest 1V portable HISTORY: 72 years-old Female renal failure acute renal failure COMPARISON: Chest radiograph 04/26/2022 TECHNIQUE: AP view of the chest FINDINGS: Cardiac silhouette is enlarged. No pneumothorax, pleural or overt pulmonary edema. Mild pulmonary vas cular congestion. Trace pleural effusions with mild bibasilar opacities. Bones of the chest appear gr ossly intact. IMPRESSION: 1. Cardiomegaly with pulmonary vascular congestion. 2. Trace pleural effusions with mild bibasilar atelectasis. ACT 112: Negative or not required by law. The above report was generated using voice recognition software. It may contain grammatical, syntax o r spelling errors. Electronically signed by: Sai Shi M.D. 07/31/2022 10:01 AM
[2022-07-31] MEDS ORDERED: CALCIUM GLUCONATE 10% 3,000 MG in DEXTROSE 5% 100 ML IV ONE (11:45)
--- NOTE | 2022-07-31 12:25 | Consultation Report ---
NEPHROLOGY CONSULTATION NOTE DATE OF SERVICE: 07/31/2022. REASON FOR CONSULTATION: Multiple electrolyte abnormalities including hypocalcemia, hypomagnesemia, hypokalemia, and hyponatremia. HISTORY OF PRESENT ILLNESS: The patient is a 72-year-old female who has CKD V with a baseline creatinine in the high 3 and low 4s, multiple myeloma with ongoing chemotherapy and has not achieved remission. The patient was directed to come to the hospital because of very abnormal outpatient labs, which showed low potassium of 2.7, very low calcium of 6.5, low sodium of 133, and her hemoglobin is also low at 6.3. I have been consulted for electrolyte management. The patient was in fact discharged on 07/17/2022 following an admission, but she also had significant electrolyte problems. As an outpatient, she is on calcium 1250 mg tablet twice daily as well as calcitriol, but currently she is not on any magnesium supplement. For the last few days to weeks her appetite has been very poor, although she is trying to eat what she can. She is gradually declining overall health with increasing weight loss, poor appetite. The patient denies any significant nausea, vomiting, chest pain or worsening shortness of breath, fever, chills at this point. Her vital signs appear to be reasonable. Since being admitted, she has received multiple doses of IV calcium and IV magnesium. Most recent labs from this morning shows sodium of 127, potassium has improved to 3.8, calcium is still low at 6.7, magnesium is normal at 2.3. Chest x-ray shows cardiomegaly with pulmonary vascular congestion with some pleural effusion. PAST MEDICAL AND SURGICAL HISTORY: Includes hypertension, hyperlipidemia, multiple myeloma, currently on chemotherapy, chronic anemia related with myeloma as well as CKD V, left breast cancer, status post surgery/chemotherapy and Arimidex, failure to thrive, multiple electrolyte imbalance, recent bone marrow biopsy, MediPort partial left lymphadenopathy/mastectomy. FAMILY HISTORY: Negative for renal disease or dialysis. PERSONAL/SOCIAL HISTORY: Nonsmoker, no alcohol. 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 ALLERGIES: List reviewed. MEDICATIONS: Home medication list was reviewed and is as per the reconciliation list and H and P. REVIEW OF SYSTEMS: She has been having increasingly poor appetite, weight loss, increasing weakness for the last few weeks to months; however, no significant acute complaints was noted in the last few days. Admission was directed mainly for abnormal labs. 12-system was reviewed and is otherwise negative. PHYSICAL EXAMINATION: GENERAL: Elderly white female who appears to be cachectic and frail and weak. She is awake, alert, oriented x3 and was able to give me a detailed account of her medical problem. VITAL SIGNS: Blood pressure is 146/75, pulse rate 74, temperature 36.3, 98% room air. HEENT: Mucous membrane is moist. NECK: Supple. No jugular venous distention. CHEST: Bilateral decreased breath sounds, occasional crackles. CARDIOVASCULAR: S1 and S2, regular. ABDOMEN: Soft, nontender. EXTREMITIES: Show no edema. LABORATORY TESTS: From this morning shows hemoglobin of 6.3, WBC count of 1.79, platelet count of 105, calcium is 6.7, it was 6.1 yesterday. Sodium 127, potassium 3.8, BUN 69, creatinine 3.77. Magnesium was 1.2 and today is 2.3. ASSESSMENT AND PLAN: A 72-year-old female with chronic kidney disease stage V, with a baseline creatinine lately of high 3 and low 4s, admitted with multiple electrolyte problem, which are acute on chronic. She has multiple myeloma, which has not achieved remission and she is still undergoing chemotherapy. 1. Multiple electrolyte problem. Primary problem is low magnesium with very low calcium. Typically, we see hypercalcemia with myeloma, but in her case, she has been having more of a hypocalcemia. Her outpatient oral supplement was 1250 twice daily. We will increase that to 1250 three times a day. She will need further intravenous calcium today as it is still very low at 6.7. She would also need magnesium baseline supplement and I will start with Slow-Mag 64 b.i.d. She might need more. However, today magnesium is normal after intravenous correction. Unless we have a sustained normal magnesium unlikely to have normal calcium. Sodium is also low and is likely related with very low solid food intake. Her potassium has got better, but it was very low as outpatient at 2.7. She would also need some potassium supplement orally as an outpatient, so I will put her on 40 twice daily for now. All of these electrolytes can be further titrated depending on the blood work in the coming days. 2. Chronic kidney disease V. Lately, her baseline creatinine has been high 3 and low 4s and she is currently at the same level. No further workup is needed for the CKD V. 3. Severe anemia. This is related with both multiple myeloma as well as CKD V. She is getting blood transfusion. Further management will be deferred to hematology/oncology. Thank you very much for the consult. Job ID: [id number] PATTI
[2022-07-31] MEDS: MAGNESIUM CHLORIDE W/CALCIUM 64MG DELAYED REL TAB PO SCH ×2 (13:03→20:58)
[2022-07-31 13:25] LABS: Hematocrit (blood only) 25.4 % (34.1-44.9)
[2022-07-31] MEDS: CALCIUM CARBONATE 1250MG TAB PO SCH ×2 (13:25→20:09)
[2022-07-31] MEDS: POTASSIUM CHLORIDE CRTAB 20 MEQ TABCR PO SCH ×2 (13:25→20:09)
[2022-07-31 13:46] LABS: BUN Creatinine Ratio 17.6 (10-20); Calcium 7.4 mg/dl (8.5-10.1); Creatinine Clr Calc Pharmacy 8.9 ml/min; Est GFR (African American) 12.9 ml/min; Est GFR (Non-African American) 11.1 ml/min; Potassium 3.3 mmol/L (3.5-5.1)
[2022-07-31 14:21] LABS: Estimated Average Glucose 123 mg/dl; Hemoglobin A1C 5.9 % (4.5-5.6)
--- NOTE | 2022-07-31 15:25 | Hospitalist Progress Note ---
Date of Service July 31, 2022 Assessment & Plan (1) Hypocalcemia: Plan: Hypocalcemia Hypomagnesemia In setting of renal osteodystrophy/ESRD/multiple myeloma ongoing chemotherapy -Work up from Last admission:PTH:339; 25 [place] Vitamin D: 66; TSH:2.6 -Replete Calcium and Magnesium --Appreciate Nephrology Input -Monitor electrolytes Hyponatremia Hypokalemia AGMA Likely due to poor oral intake Sodium 15>>131 Improved with IV fluids Monitor electrolytes and replete as needed Constipation KUB:Moderate to large amount of well-formed stool seen throughout the colon and rectum. 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 Px: SCDs Re: Thrombocytopenia, Anemia Code Status DNR/DNI Admission and Anticipated Discharge Date Admission Date: July 31, 2022 Subjective Patient is seen and examined at bedside States feeling bloated and constipated Denies any chest pain, dyspnea, dizziness, nausea, vomiting No other complaints Review of Systems Review of Systems: All systems reviewed & are unremarkable except as noted in Subjective Physical Exam Physical Exam: Physical Exam: Vitals signs as noted above General Appearance:Thin, frail, chronic ill appearing, No apparent distress Head: normocephalic, Atraumatic Eyes: normal inspection, EOMI Neck: supple, Trachea midline Respiratory/Chest: Normal breath sounds, CTA, No accessory muscle use Cardiovascular: S1, S2, No murmur Abdomen/GI:Soft, mild tender, Bowel sounds present Extremities/Musculoskeletal:normal inspection, no edema Neurologic/Psych:AAOX3, grossly no focal neurological deficits Skin: normal color, warm Results & Data Results & Data ([facility]) Vital Signs (Past 12 Hours) Vital Signs Temp Pulse Pulse Resp BP BP Pulse Ox 07/31/22 11:10 36.3 C L 74 18 146/75 H 98 07/31/22 08:15 36.3 C L 76 18 146/76 H 95 07/31/22 06:00 36.5 C 75 18 134/74 97 07/31/22 07:21 76 07/31/22 05:47 36.5 C 81 17 129/77 99 07/31/22 04:13 36.5 C 70 18 133/74 98 O2 Del Method 07/31/22 11:10 Room Air 07/31/22 08:15 07/31/22 06:00 07/31/22 07:21 07/31/22 05:47 07/31/22 04:13 Room Air Laboratory Results Short CBC 07/30/22 07/31/22 07/31/22 Range/Units 18:55 05:21 12:54 WBC 1.08 L 1.79 L (4.8-10.8) K/ul Hgb 6.6 L* 6.3 L* 9.0 L (12.0-16.0) g/dl Hct 19.1 L* 18.3 L* 25.4 L (34.1-44.9) % Plt Count 101 L 105 L (130-400) K/uL BMP 07/30/22 07/31/22 07/31/22 18:55 05:21 12:54 Sodium 125 L 127 L 131 L Potassium 3.3 L 3.8 3.3 L Chloride 94 L 101 101 Carbon Dioxide 16 L 14 L 16 L BUN 69 H 69 H 67 H Creatinine 4.19 H 3.77 H D 3.80 H Glucose 216 H 158 H 115 H Calcium 6.1 L 6.7 L 7.4 L Liver Function 07/30/22 Range/Units 18:55 Total Bilirubin 0.4 (0.2-1.0) mg/dl AST 13 (13-39) U/L ALT 14 (7-52) U/L Alkaline Phosphatase 110 H (34-104) U/L Albumin 4.0 (3.4-5.0) gm/dl Urine 07/31/22 Range/Units 08:25 Urine Color Yellow Urine Appearance Clear (Clear) Urine pH 5.0 (4.5-7.5) Ur Specific [place] 1.006 (1.000-1.030) Urine Protein Negative (Negative) Urine Glucose (UA) Trace H (Negative)
--- NOTE | 2022-07-31 15:39 | XRay Report ---
KUB HISTORY: constipation COMPARISON: KUB 03/18/2022. Abdomen and pelvis CT 04/20/2022 and 05/23/2022. FINDINGS: No dilated loops of bowel to suggest an obstruction. Compression deformities within the tho racolumbar spine are better appreciated on the prior CT examination. Moderate to large amount of well -formed stool seen throughout the colon and rectum which is similar to the prior study. A rectal stoo l balls measure up to 7.3 cm in diameter. The lung bases appear clear. No renal calculi. No ureteral calculi. No pneumoperitoneum or pneumatosis. IMPRESSION: 1. Moderate to large amount of well-formed stool seen throughout the colon and rectum. This is simila r to the prior study. 2. Thoracolumbar spine compression deformities again noted. ACT 112: Negative or not required by law. Electronically signed by: Osei Cope M.D. 07/31/2022 3:37 PM
[2022-07-31] MEDS: DOCUSATE SODIUM 100 MG CAP PO SCH ×2 (16:56→20:09)
[2022-08-01 07:11] LABS: Hematocrit (blood only) 20.6 % (34.1-44.9); Hemoglobin 7.3 g/dl (12.0-16.0); Mean Corpuscular Hemoglobin 31.5 pg (25.0-34.0); Mean Corpuscular Hgb Conc 35.4 g/dL (32.0-36.0); Mean Corpuscular Volume 88.8 fL (80.0-100.0); Mean Platelet Volume 10.9 fL (9.4-12.3); Platelet Count 136 K/uL (130-400); RDW Coefficient of Variation 16.1 % (11.5-14.5); RDW Standard Deviation 50.7 fL (36.4-46.3); Red Blood Count 2.32 M/uL (3.93-5.22); White Blood Count 2.22 K/ul (4.8-10.8)
[2022-08-01 07:31] LABS: Potassium 4.9 mmol/L (3.5-5.1)
[2022-08-01 07:43] LABS: Basophils # (auto) 0.01 K/uL (0-0.2); Basophils % (auto) 0.5 %; Eosinophils # (auto) 0.02 K/uL (0-0.50); Eosinophils % (auto) 0.9 %; Immature Granulocytes # (auto) 0.02 K/uL (0.00-0.02); Immature Granulocytes % (auto) 0.9 %; Lymphocytes # (auto) 0.36 K/uL (1.2-3.4); Lymphocytes % (auto) 16.2 %; Monocytes # (auto) 0.56 K/uL (0.24-0.82); Monocytes % (auto) 25.2 %; Neutrophils # (auto) 1.25 K/uL (1.4-6.5); Neutrophils % (auto) 56.3 %
[2022-08-01 07:50] LABS: BUN Creatinine Ratio 17.2 (10-20); Calcium 7.4 mg/dl (8.5-10.1); Creatinine Clr Calc Pharmacy 9.2 ml/min; Est GFR (African American) 13.5 ml/min; Est GFR (Non-African American) 11.6 ml/min; Magnesium 1.9 mg/dl (1.7-2.4)
[2022-08-01] MEDS: ATORVASTATIN 10 MG TAB PO SCH (08:33)
[2022-08-01] MEDS: CALCIUM CARBONATE 1250MG TAB PO SCH ×3 (08:33→20:44)
[2022-08-01] MEDS: ACYCLOVIR 400 MG TAB PO SCH ×2 (08:33→20:45)
[2022-08-01] MEDS: ASPIRIN 81 MG ECTAB PO SCH (08:33)
[2022-08-01] MEDS: CALCITRIOL 0.25 MCG CAPSULE PO SCH (08:33)
[2022-08-01] MEDS: POLYETHYLENE (MIRALAX) 17 GM PACK PO SCH ×2 (08:34→09:24)
[2022-08-01] MEDS: MAGNESIUM CHLORIDE W/CALCIUM 64MG DELAYED REL TAB PO SCH ×3 (08:34→20:45)
[2022-08-01] MEDS: DOCUSATE SODIUM 100 MG CAP PO SCH ×3 (08:34→20:44)
[2022-08-01] MEDS: POTASSIUM CHLORIDE CRTAB 20 MEQ TABCR PO SCH (08:37)
[2022-08-01] MEDS ORDERED: STAT IV STA (10:14)
[2022-08-01] MEDS ORDERED: CALCIUM GLUCONATE 10% 1,000 MG in DEXTROSE 5% 50 ML IV ONE (10:14)
--- NOTE | 2022-08-01 10:54 | Nephrology Progress Note ---
Date of Service August 01, 2022 Assessment & Plan Admission and Anticipated Discharge Date Admission Date: July 31, 2022 Subjective SS--no new issues. PHYSICAL EXAMINATION: GENERAL: Elderly white female who appears to be cachectic and frail and weak. She is awake, alert, oriented x3 and was able to give me a detailed account of her medical problem. HEENT: Mucous membrane is moist. NECK: Supple. No jugular venous distention. CHEST: Bilateral decreased breath sounds, occasional crackles. CARDIOVASCULAR: S1 and S2, regular. ABDOMEN: Soft, nontender. EXTREMITIES: Show no edema. LABORATORY TESTS: Reviewed From this morning . ASSESSMENT AND PLAN: A 72-year-old female with chronic kidney disease stage V, with a baseline creatinine lately of high 3 and low 4s, admitted with multiple electrolyte problem, which are acute on chronic. She has multiple myeloma, which has not achieved remission and she is still undergoing chemotherapy. 1. Multiple electrolyte problem. Primary problem is low magnesium with very low calcium. Typically, we see hypercalcemia with myeloma, but in her case, she has been having more of a hypocalcemia. Her outpatient oral supplement was 1250 twice daily. We will increase that to 1250 three times a day. She will need further intravenous calcium today as it is still very low at 6.7. She would also need magnesium baseline supplement and I will start with Slow-Mag 64 b.i.d. She might need more. However, today magnesium is normal after intravenous correction. Unless we have a sustained normal magnesium unlikely to have normal calcium. Sodium is also low and is likely related with very low solid food intake. Her potassium has got better, but it was very low as outpatient at 2.7. She would also need some potassium supplement orally as an outpatient, so I will put her on 40 twice daily for now. All of these electrolytes can be further titrated depending on the blood work in the coming days. Rec for Discharge: Calcium glu 1950 tid. Slow mag 64 tid. Potassium 20 Daily. --Better to overshoot ( very unlikely) and lower the dose outpt than to undershoot and risk readmission. 2. Chronic kidney disease V. Lately, her baseline creatinine has been high 3 and low 4s and she is currently at the same level. No further workup is needed for the CKD V. No iv fluid. 3. Severe anemia. This is related with both multiple myeloma as well as CKD V. She is getting blood transfusion. Further management will be deferred to hematology/oncology. Results & Data ([facility]) Vital Signs (Past 12 Hours) Vital Signs Temp Pulse Resp BP Pulse Ox O2 Del Method 08/01/22 06:41 37.1 C 88 20 121/63 95 Room Air 08/01/22 03:12 36.8 C 81 18 122/73 96 Room Air
[2022-08-01 15:21] LABS: Hemoglobin 7.4 g/dl (12.0-16.0)
--- NOTE | 2022-08-01 16:45 | Hospitalist Progress Note ---
Date of Service August 01, 2022 Assessment & Plan (1) Hypocalcemia: Plan: Hypocalcemia Hypomagnesemia In setting of renal osteodystrophy/ESRD/multiple myeloma ongoing chemotherapy -Work up from Last admission:PTH:339; 25 [place] Vitamin D: 66; TSH:2.6 -Replete Calcium and Magnesium --Appreciate Nephrology Input -Monitor electrolytes Hyponatremia Hypokalemia AGMA Likely due to poor oral intake Sodium 125>>131>>136 Improved with IV fluids Monitor electrolytes and replete as needed Constipation KUB:Moderate to large amount of well-formed stool seen throughout the colon and rectum. 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 Px: SCDs Re: Thrombocytopenia, Anemia Code Status DNR/DNI Admission and Anticipated Discharge Date Admission Date: July 31, 2022 Subjective Patient is seen and examined at bedside States feeling a lot better today Had bowel movement Discussed with nephrology today Offers no complaints Denies any chest pain, dyspnea, dizziness, nausea, vomiting Review of Systems Review of Systems: All systems reviewed & are unremarkable except as noted in Subjective Physical Exam Physical Exam: Physical Exam: Vitals signs as noted above General Appearance:Thin, frail, chronic ill appearing, No apparent distress Head: normocephalic, Atraumatic Eyes: normal inspection, EOMI Neck: supple, Trachea midline Respiratory/Chest: Normal breath sounds, CTA, No accessory muscle use Cardiovascular: S1, S2, No murmur Abdomen/GI:Soft, non tender, Bowel sounds present Extremities/Musculoskeletal:normal inspection, no edema Neurologic/Psych:AAOX3, grossly no focal neurological deficits Skin: normal color, warm Results & Data Results & Data ([facility]) Vital Signs (Past 12 Hours) Vital Signs Temp Pulse Pulse Resp BP Pulse Ox O2 Del Method 08/01/22 15:48 37.0 C 90 18 127/81 97 Room Air 08/01/22 15:43 91 H 08/01/22 08:00 85 08/01/22 11:43 36.8 C 85 16 109/67 98 Room Air 08/01/22 06:41 37.1 C 88 20 121/63 95 Room Air Laboratory Results Short CBC 08/01/22 08/01/22 Range/Units 05:55 14:54 WBC 2.22 L (4.8-10.8) K/ul Hgb 7.3 L 7.4 L (12.0-16.0) g/dl Hct 20.6 L* 22.0 L (34.1-44.9) % Plt Count 136 (130-400) K/uL BMP 08/01/22 05:55 Sodium 136 Potassium 4.9 D Chloride 112 H Carbon Dioxide 15 L BUN 63 H Creatinine 3.66 H Glucose 70 Calcium 7.4 L
[2022-08-01] MEDS: MIRTAZAPINE TAB 15 MG TAB PO SCH (20:45)
[2022-08-02 06:04] LABS: Basophils # (auto) 0.05 K/uL (0-0.2); Basophils % (auto) 1.6 %; Eosinophils # (auto) 0.13 K/uL (0-0.50); Eosinophils % (auto) 4.1 %; Hematocrit (blood only) 23.6 % (34.1-44.9); Immature Granulocytes # (auto) 0.01 K/uL (0.00-0.02); Immature Granulocytes % (auto) 0.3 %; Lymphocytes # (auto) 1.07 K/uL (1.2-3.4); Lymphocytes % (auto) 33.5 %; Mean Corpuscular Hemoglobin 30.9 pg (25.0-34.0); Mean Corpuscular Hgb Conc 33.9 g/dL (32.0-36.0); Mean Corpuscular Volume 91.1 fL (80.0-100.0); Mean Platelet Volume 10.1 fL (9.4-12.3); Monocytes % (auto) 25.1 %; Neutrophils # (auto) 1.13 K/uL (1.4-6.5); Neutrophils % (auto) 35.4 %; Platelet Count 139 K/uL (130-400); RDW Coefficient of Variation 16.7 % (11.5-14.5); RDW Standard Deviation 55.6 fL (36.4-46.3); Red Blood Count 2.59 M/uL (3.93-5.22); White Blood Count 3.19 K/ul (4.8-10.8)
[2022-08-02 06:27] LABS: Calcium 7.6 mg/dl (8.5-10.1); Creatinine Clr Calc Pharmacy 11.1 ml/min; Est GFR (African American) 15.6 ml/min; Est GFR (Non-African American) 13.5 ml/min; Magnesium 1.7 mg/dl (1.7-2.4); Potassium 5.2 mmol/L (3.5-5.1)
[2022-08-02] MEDS: CALCIUM CARBONATE 1250MG TAB PO SCH ×2 (07:50→13:14)
[2022-08-02] MEDS: ACYCLOVIR 400 MG TAB PO SCH (07:50)
[2022-08-02] MEDS: CALCITRIOL 0.25 MCG CAPSULE PO SCH (07:50)
[2022-08-02] MEDS: ATORVASTATIN 10 MG TAB PO SCH (07:51)
[2022-08-02] MEDS: MAGNESIUM CHLORIDE W/CALCIUM 64MG DELAYED REL TAB PO SCH ×2 (07:51→13:14)
[2022-08-02] MEDS: ASPIRIN 81 MG ECTAB PO SCH (07:51)
[2022-08-02] MEDS: DOCUSATE SODIUM 100 MG CAP PO SCH (07:53)
[2022-08-02] MEDS: POLYETHYLENE (MIRALAX) 17 GM PACK PO SCH (07:56)
[2022-08-02] MEDS ORDERED: POTASSIUM CHLORIDE CRTAB 20 MEQ TABCR PO SCH (09:00)
--- NOTE | 2022-08-02 12:43 | Hospitalist Progress Note ---
Date of Service August 02, 2022 Assessment & Plan (1) Hypocalcemia: Plan: Hypocalcemia Hypomagnesemia In setting of renal osteodystrophy/ESRD/multiple myeloma ongoing chemotherapy -Work up from Last admission:PTH:339; 25 [place] Vitamin D: 66; TSH:2.6 -Replete Calcium and Magnesium --Appreciate Nephrology Input -Monitor electrolytes -Advised to follow up with Nephrology upon discharge Hyponatremia Hypokalemia AGMA Likely due to poor oral intake Sodium 125>>131>>134 Improved with IV fluids Monitor electrolytes and replete as needed Constipation KUB:Moderate to large amount of well-formed stool seen throughout the colon and rectum. 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 Px: SCDs Re: Thrombocytopenia, Anemia Code Status DNR/DNI Disposition Home Admission and Anticipated Discharge Date Admission Date: July 31, 2022 Subjective Patient is seen and examined at bedside No new complaints Eager to get discharged Constipation resolved Denies any chest pain, dyspnea, dizziness, nausea, vomiting Plan to discharge home today Discussed with Review of Systems Review of Systems: All systems reviewed & are unremarkable except as noted in Subjective Physical Exam Physical Exam: Physical Exam: Vitals signs as noted above General Appearance:Thin, frail, chronic ill appearing, No apparent distress Head: normocephalic, Atraumatic Eyes: normal inspection, EOMI Neck: supple, Trachea midline Respiratory/Chest: Normal breath sounds, CTA, No accessory muscle use Cardiovascular: S1, S2, No murmur Abdomen/GI:Soft, non tender, Bowel sounds present Extremities/Musculoskeletal:normal inspection, no edema Neurologic/Psych:AAOX3, grossly no focal neurological deficits Skin: normal color, warm Results & Data Results & Data ([facility]) Vital Signs (Past 12 Hours) Vital Signs Temp Pulse Pulse Resp BP Pulse Ox O2 Del Method 08/02/22 11:20 36.6 C 87 16 122/75 99 Room Air 08/02/22 07:42 75 08/02/22 07:02 36.8 C 85 18 110/68 96 Room Air 08/02/22 02:15 37.2 C 80 18 125/75 96 Room Air Laboratory Results Short CBC 08/01/22 08/02/22 Range/Units 14:54 05:52 WBC 3.19 L (4.8-10.8) K/ul Hgb 7.4 L 8.0 L (12.0-16.0) g/dl Hct 22.0 L 23.6 L (34.1-44.9) % Plt Count 139 (130-400) K/uL BMP 08/02/22 05:52 Sodium 134 L Potassium 5.2 H Chloride 111 H Carbon Dioxide 16 L BUN 68 H Creatinine 3.24 H D Glucose 85 Calcium 7.6 L
[2022-08-02 13:20] LABS: BUN Creatinine Ratio 20.8 (10-20); Creatinine Clr Calc Pharmacy 10.6 ml/min; Est GFR (African American) 14.7 ml/min; Est GFR (Non-African American) 12.7 ml/min; Potassium 4.7 mmol/L (3.5-5.1)
--- NOTE | 2022-08-02 13:43 | Discharge Summary ---
Date of Service August 02, 2022 Admission HPI Per Admitting Provider History obtained from patient and records. Medical history significant for hypertension, hyperlipidemia, multiple myeloma currently on chemotherapy, chronic anemia (baseline hemoglobin 7-8), ESRD,, left breast cancer status post surgery/chemotherapy on Arimidex. Recent confinement 2 weeks ago for hypocalcemia and hypomagnesemia Patient evaluated by Nephrology during confinement. 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 Abnormal outpatient labs resulted yesterday. WBC 1.58, hemoglobin of 7, platelets of 98 Serum ionized calcium of 0.86, sodium 133, potassium 2.7, creatinine of 3.9 Patient denies chest pain, SOB, abdominal pain, black/bloody stools, diarrhea. Poor appetite and progressive weight loss as per patient Patient directed to ER for evaluation. 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 Admission Exam Per Admitting Provider Physical Exam Physical Exam: GENERAL: Comfortable, underweight, no respiratory distress SKIN: Pallor , warm HEENT: Pale palpebral conjunctivae, no ptosis, dry buccal mucosa NECK : Supple, no tenderness CHEST : CTA, no tenderness HEART : RRR, no obvious murmurs ABDOMEN: no distention, nontender EXTREMITIES : No LE swelling/tenderness, no other conspicuous deformities noted NEUROLOGIC : Coherent, no facial asymmetry, no other gross focality Principal Diagnosis Hypocalcemia Hypomagnesemia Hyponatremia Constipation Pancytopenia Discharge Data Allergies Allergy/AdvReac Type Severity Reaction Status Date / Time No Known Allergies Allergy Unknown Verified 07/30/22 21:59 Consultations 07/30/22 20:51 ED Decision to Admit Stat 07/31/22 03:37 Consult Nephrology Routine Procedures Performed Laboratory Results WBC 3.19 K/ul (4.8-10.8) L 08/02/22 05:52 RBC 2.59 M/uL (3.93-5.22) L 08/02/22 05:52 Hgb 8.0 g/dl (12.0-16.0) L 08/02/22 05:52 Hct 23.6 % (34.1-44.9) L 08/02/22 05:52 MCV 91.1 fL (80.0-100.0) 08/02/22 05:52 MCH 30.9 pg (25.0-34.0) 08/02/22 05:52 MCHC 33.9 g/dL (32.0-36.0) 08/02/22 05:52 RDW Std Deviation 55.6 fL (36.4-46.3) H 08/02/22 05:52 RDW Coeff of [place] 16.7 % (11.5-14.5) H 08/02/22 05:52 Plt Count 139 K/uL (130-400) 08/02/22 05:52 MPV 10.1 fL (9.4-12.3) 08/02/22 05:52 Immature Gran % (Auto) 0.3 % 08/02/22 05:52 Neut % (Auto) 35.4 % 08/02/22 05:52 Lymph % (Auto) 33.5 % 08/02/22 05:52 [place] % (Auto) 25.1 % 08/02/22 05:52 Eos % (Auto) 4.1 % 08/02/22 05:52 Baso % (Auto) 1.6 % 08/02/22 05:52 Neut # (Auto) 1.13 K/uL (1.4-6.5) L 08/02/22 05:52 Lymph # (Auto) 1.07 K/uL (1.2-3.4) L 08/02/22 05:52 [place] # (Auto) 0.80 K/uL (0.24-0.82) 08/02/22 05:52 Eos # (Auto) 0.13 K/uL (0-0.50) 08/02/22 05:52 Baso # (Auto) 0.05 K/uL (0-0.2) 08/02/22 05:52 Immature Gran # (Auto) 0.01 K/uL (0.00-0.02) 08/02/22 05:52 Ovalocytes 1+ 07/31/22 05:21 VBG pH 7.26 (7.36-7.41) L 07/31/22 05:21 VBG pCO2 32 mmHg (38-50) L 07/31/22 05:21 VBG pO2 24 mmHg 07/31/22 05:21 VBG HCO3 14 mmol/L 07/31/22 05:21 VBG O2 Saturation < 60.0 % 07/31/22 05:21 VBG Base Excess -11.5 mEq/L 07/31/22 05:21 Sodium 136 mmol/L (136-145) 08/02/22 12:49 Potassium 4.7 mmol/L (3.5-5.1) 08/02/22 12:49 Chloride 109 mmol/L (98-107) H 08/02/22 12:49 Carbon Dioxide 19 mmol/L (21-32) L 08/02/22 12:49 Anion Gap 8 (3-11) 08/02/22 12:49 BUN 71 mg/dl (6-23) H 08/02/22 12:49 Creatinine 3.41 mg/dl (0.6-1.2) H 08/02/22 12:49 Est Cr Clr Drug Dosing 10.6 ml/min 08/02/22 12:49 Est GFR ( Amer) 14.7 ml/min 08/02/22 12:49 Est GFR (Non-Af Amer) 12.7 ml/min 08/02/22 12:49 BUN/Creatinine Ratio 20.8 (10-20) H 08/02/22 12:49 Glucose 102 mg/dl (70-99(Fasting)) H 08/02/22 12:49 Estimat Average Glucose 123 mg/dl 07/31/22 12:54 Hemoglobin A1c 5.9 % (4.5-5.6) H 07/31/22 12:54 Osmolality 292 mOsm/kg (280-300) 07/31/22 12:54 Calcium 8.0 mg/dl (8.5-10.1) L 08/02/22 12:49 Magnesium 1.7 mg/dl (1.7-2.4) 08/02/22 05:52 Total Bilirubin 0.4 mg/dl (0.2-1.0) 07/30/22 18:55 AST 13 U/L (13-39) 07/30/22 18:55 ALT 14 U/L (7-52) 07/30/22 18:55 Alkaline Phosphatase 110 U/L (34-104) H 07/30/22 18:55 Total Protein 6.0 gm/dl (6.0-8.3) 07/30/22 18:55 Albumin 4.0 gm/dl (3.4-5.0) 07/30/22 18:55 Globulin 2.0 gm/dl (2.5-4.0) L 07/30/22 18:55 Albumin/Globulin Ratio 2.0 (0.9-2) 07/30/22 18:55 Urine Color Yellow 07/31/22 08:25 Urine Appearance Clear (Clear) 07/31/22 08:25 Urine pH 5.0 (4.5-7.5) 07/31/22 08:25 Ur Specific [place] 1.006 (1.000-1.030) 07/31/22 08:25 Urine Protein Negative (Negative) 07/31/22 08:25 Urine Glucose (UA) Trace (Negative) H 07/31/22 08:25 Urine Ketones Negative (Negative) 07/31/22 08:25 Urine Blood Negative (Negative) 07/31/22 08:25 Urine Nitrite Negative (Negative) 07/31/22 08:25 Urine Bilirubin Negative (Negative) 07/31/22 08:25 Urine Urobilinogen Negative (Negative) 07/31/22 08:25 Ur Leukocyte Esterase Negative (Negative) 07/31/22 08:25 Urine Osmolality 155 mOsm/kg (500-800) L 07/31/22 08:25 Ur Random Sodium 15 mmol/L 07/31/22 08:25 SARS-CoV-2, RNA, NAAT NEGATIVE (NEGATIVE) 07/30/22 20:39 Blood Type Cancelled 07/30/22 20:20 Antibody Screen Cancelled 07/30/22 20:20 Crossmatch See Detail 07/30/22 20:20 Impressions Chest X-Ray 07/30/22 21:40 XR chest 1V portable HISTORY: 72 years-old Female renal failure acute renal failure COMPARISON: Chest radiograph 04/26/2022 TECHNIQUE: AP view of the chest FINDINGS: Cardiac silhouette is enlarged. No pneumothorax, pleural or overt pulmonary edema. Mild pulmonary vascular congestion. Trace pleural effusions with mild bibasilar opacities. Bones of the chest appear grossly intact. IMPRESSION: 1. Cardiomegaly with pulmonary vascular congestion. 2. Trace pleural effusions with mild bibasilar atelectasis. ACT 112: Negative or not required by law. The above report was generated using voice recognition software. It may contain grammatical, syntax or spelling errors. Electronically signed by: Sai Shi M.D. 07/31/2022 10:01 AM KUB X-Ray 07/31/22 14:16 KUB HISTORY: constipation COMPARISON: KUB 03/18/2022. Abdomen and pelvis CT 04/20/2022 and 05/23/2022. FINDINGS: No dilated loops of bowel to suggest an obstruction. Compression deformities within the thoracolumbar spine are better appreciated on the prior CT examination. Moderate to large amount of well-formed stool seen throughout the colon and rectum which is similar to the prior study. A rectal stool balls measure up to 7.3 cm in diameter. The lung bases appear clear. No renal calculi. No ureteral calculi. No pneumoperitoneum or pneumatosis. IMPRESSION: 1. Moderate to large amount of well-formed stool seen throughout the colon and rectum. This is similar to the prior study. 2. Thoracolumbar spine compression deformities again noted. ACT 112: Negative or not required by law. Electronically signed by: Osei Cope M.D. 07/31/2022 3:37 PM Hospital Course (1) Hypocalcemia: Hypocalcemia Hypomagnesemia In setting of renal osteodystrophy/ESRD/multiple myeloma ongoing chemotherapy -Work up from Last admission:PTH:339; 25 OH Vitamin D: 66; TSH:2.6 -Replete Calcium and Magnesium --Appreciate Nephrology Input -Monitor electrolytes -Advised to follow up with Nephrology upon discharge Hyponatremia Hypokalemia AGMA Likely due to poor oral intake Sodium 125>>131>>134 Improved with IV fluids Monitor electrolytes and replete as needed Constipation KUB:Moderate to large amount of well-formed stool seen throughout the colon and rectum. 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 Px: SCDs Re: Thrombocytopenia, Anemia Code Status DNR/DNI Disposition Home Total Time Total Time Spent Total Time Spent (In Minutes): 45 minutes Discharge Plan Discharge Items Patient Disposition: Home - Self-Care Reason For Visit: HYPOCALCEMIA,HYPOMAG Discharge Diagnosis: Hypocalcemia Hypomagnesemia Hyponatremia Constipation Pancytopenia Activity: Per Instructions section Exercise/Sports: Gradually increase as tolerated Non-emergency contact: Primary Care Provider and Morning Babysitter Call non-emergency contact if: you have any medication questions, your symptoms worsen, your pain is concerning for you and you have a fever Follow-up/Referrals: Amelia Tucker, [Primary Care Provider] - Diet: Regular Addtl Attending Provider Instructions: Follow up with your Primary Care physician (PCP) in 1 week Follow up with your Morning Babysitter in 2 weeks. Please call for appointment. --You may need further adjustment of your medications after follow up with PCP/Morning Babysitter. --Get blood test (Basic Metabolic Panel) in 1 week and follow up with your PCP/Morning Babysitter. Seek immediate medical attention if your symptoms reoccur or worsen Please take all medications as instructed on discharge list below. Please call if you have any questions or problems. You can reach a [facility] hospitalist on duty at [facility] 24 hours a day by calling [phone] Pending Studies at Discharge: No Stand-Alone Forms: My [facility], Smoking Cessation Medications and DC Order Prescriptions: New Mag 64 64 mg Tablet,Delayed Release (Dr/Ec) 64 mg PO TID Qty: 60 0RF docusate sodium 100 mg Capsule 100 mg PO BID PRN (Reason: congestion) Qty: 60 0RF polyethylene glycol 3350 [Miralax] 17 gram Powder In Packet 17 g PO DAILY PRN (Reason: Constipation) Qty: 30 0RF Continued anastrozole [Arimidex] 1 mg tablet 1 mg PO QAM atorvastatin 10 mg tablet 10 mg PO QAM acyclovir 400 mg tablet 400 mg PO [facility]HS ondansetron HCl 8 mg tablet 8 mg PO Q8 PRN (Reason: Nausea) calcitriol 0.25 mcg capsule 0.25 mcg PO QAM Qty: 30 0RF oxycodone-acetaminophen 5-325 mg tablet 1 tab PO Q6 PRN (Reason: Pain, Moderate) dexamethasone 4 mg tablet 40 mg PO WK Rx Instructions: 10 tablet dose mirtazapine 15 mg tablet 15 mg PO HS lenalidomide 5 mg Capsule 5 mg PO QAM Rx Instructions: take 21 out of 28 days aspirin 81 mg Tablet,Delayed Release (Dr/Ec) 81 mg PO QAM Changed calcium carbonate 500 mg calcium (1,250 mg) tablet 2,000 mg PO TID Qty: 240 0RF Discharge Orders: Discharge Order (Routine); Ordered 08/02/22 Ordered By: oRn Nye Admission Data Admit Date/Time: 07/31/22 00:26 Attending Provider: Ron Nye Admit Provider: Malachi Shaw Primary Care Provider: Amelia Tucker Other Providers: Malachi Shaw ; Dodie Menjivar ; Cornel Joe ; Caitlyn Paul Japheth E. ; Cheli Rojas ; Laura Myers
== END 2022-08-02 17:31 | disposition home or self-care (01) | DRG 640 ==
LOC: ED 17:22 → 2W 07-31 00:26